=== PATIENT | male | born 1965 | race Caucasian/White ===

== ENCOUNTER 2018-04-25 12:46 | Outpatient (REF) | payer MEDICAID, SELFPAY ==
[2018-04-25 14:10] LABS: ALT 27 U/L (12-78); AST 28 U/L (15-37); Albumin 3.8 g/dL (3.4-5.0); Alkaline Phosphatase 203 U/L (46-116); Anion Gap 9.3 mmol/L (3-11); BUN 11 mg/dL (7-18); Bilirubin, Total 0.5 mg/dL (0.2-1.0); CO2 27.7 mmol/L (21.0-32.0); CREATININE 0.97 mg/dL (0.70-1.30); Calcium 8.6 mg/dL (8.5-10.1); Chloride 102 mmol/L (98-107); Glucose 128 mg/dL (70-100); Magnesium 1.7 mg/dL (1.8-2.4); Potassium 3.8 mmol/L (3.5-5.1); Sodium 139 mmol/L (136-145)
[2018-04-25 14:51] LABS: HCT 37.9 % (40.0-50.0); HGB 11.7 g/dL (13.5-17.5); Mean Corp. HGB Concentration 30.9 g/dL (32.0-36.0); Mean Corpuscular Hemoglobin 24.6 pg (27.0-33.0); Mean Corpuscular Volume 79.8 fL (80-95); Mean Platelet Volume 11.6 fL (8.0-11.0); Platelet Count 221 x1000/uL (130-400); RBC 4.75 m/cumm (4.50-6.00); RBC Distribution Width 18.2 % (11.8-14.1); White Blood Cell Count 7.07 k/cumm (4.4-10.8)
[2018-04-26 11:52] LABS: HIV-1/2 Ag & Ab Screen Negative (NEGAT)
[2018-04-26 14:54] LABS: HCV RNA Detection Quantitative Undetected IU/mL (UNDECT)
== END 2018-04-25 12:47 ==
LOC: NCHCN 12:46
PROVIDERS: PCP Nurse Practitioner Family; Visit Provider Nurse Practitioner Family
DX: K92.2 Gastrointestinal hemorrhage, unspecified (principal); B18.2 Chronic viral hepatitis C
CPT/HCPCS: 80053; 85027; 87389; 83735; 85610; 87522

== ENCOUNTER 2019-10-30 22:10 | Outpatient (REF) | payer MEDICAID, SELFPAY ==
[2019-10-30 20:17] LABS: ALT 28 U/L (16-63); AST 30 U/L (15-37); Albumin 4.2 g/dL (3.4-5.0); Alkaline Phosphatase 154 U/L (46-116); Anion Gap 10.6 mmol/L (3-11); BUN 12 mg/dL (7-18); Bilirubin, Total 0.8 mg/dL (0.2-1.0); CO2 28.4 mmol/L (21.0-32.0); CREATININE 0.86 mg/dL (0.70-1.30); Calcium 9.2 mg/dL (8.5-10.1); Calculated LDL 119 mg/dL (<100); Chloride 94 mmol/L (98-107); Cholesterol 203 mg/dL (<200); Glucose 132 mg/dL (74-106); HDL Cholesterol 76 mg/dL (40-60); Magnesium 1.9 mg/dL (1.8-2.4); Potassium 3.6 mmol/L (3.5-5.1); Sodium 133 mmol/L (136-145); Total Protein 7.7 g/dL (6.4-8.2); Triglyceride 43 mg/dL (<150)
== END 2019-10-30 22:30 ==
LOC: NCHCN 22:10
PROVIDERS: PCP Nurse Practitioner Family; Visit Provider Nurse Practitioner Family
DX: K70.30 Alcoholic cirrhosis of liver without ascites (principal); Z13.220 Encounter for screening for lipoid disorders
CPT/HCPCS: 80053; 80061; 83735

== ENCOUNTER 2020-11-18 04:18 | Outpatient (CLI) | payer MEDICAID, SELFPAY ==
[2020-11-18 13:46] LABS: Hemoglobin A1C 5.9 % (<5.7)
[2020-11-18 14:09] LABS: ALT 28 U/L (16-63); AST 23 U/L (15-37); Albumin 3.9 g/dL (3.4-5.0); Alkaline Phosphatase 145 U/L (46-116); Anion Gap 8.5 mmol/L (3-11); BUN 10 mg/dL (7-18); Bilirubin, Total 0.5 mg/dL (0.2-1.0); CO2 26.5 mmol/L (21.0-32.0); CREATININE 0.8 mg/dL (0.70-1.30); Calcium 9.1 mg/dL (8.5-10.1); Chloride 98 mmol/L (98-107); Glucose 112 mg/dL (74-106); Magnesium 1.9 mg/dL (1.8-2.4); Potassium 4.5 mmol/L (3.5-5.1); Sodium 133 mmol/L (136-145); Total Protein 7.7 g/dL (6.4-8.2)
[2020-11-22 08:46] LABS: Thiamine (Vitamin B1), WB 115 nmol/L (70-180)
== END 2020-11-18 04:19 | disposition home or self-care (01) ==
LOC: LBO 04:19
PROVIDERS: PCP Nurse Practitioner Family; Visit Provider Nurse Practitioner Family
DX: R73.03 Prediabetes (principal); F17.209 Nicotine dependence, unspecified, with unspecified nicotine-induced disorders; K70.30 Alcoholic cirrhosis of liver without ascites; E83.42 Hypomagnesemia
CPT/HCPCS: 36415; 80053; 83036; 83735; 84425

== ENCOUNTER 2020-12-26 17:43 | Outpatient (REF) | payer MEDICAID, SELFPAY ==
--- NOTE | 2020-12-26 14:30 | TONG_PTH ---
PATIENT: Vin Lopes LOC: [facility] U#:[id number] AGE/SX: 55/M ROOM: RE12/26/[address]: Collin Johnson MD : [id number] BED: DIS: 12/26/2020 SPEC #: [id number] RECD: 12/26/20 18:05 STATUS: NERIS REEunice #: [id number] ELZA: 12/26/20 14:[address]: Collin Johnson DEPT: Surgical Specimen RECD BY: Crystal Thurman ENTERED: 12/26/20 18:06 SP TYPE: MARIKA TITUS DR: Monserrat Parker Tissues: 1 - TONGUE BIOPSY Procedures: GROSS AND MICRO LEVEL 4 Comments: [id number]
== END 2020-12-26 17:44 | disposition home or self-care (01) ==
LOC: LBN 17:43
PROVIDERS: PCP Nurse Practitioner Family; Visit Provider Otolaryngology
DX: C02.1 Malignant neoplasm of border of tongue (principal); K13.29 Other disturbances of oral epithelium, including tongue; Z87.891 Personal history of nicotine dependence
CPT/HCPCS: 88305

== ENCOUNTER 2021-03-18 14:24 | Outpatient (CLI) | payer MEDICAID, SELFPAY ==
--- NOTE | 2021-03-18 14:00 | DI.RAD_ITS ---
Exam(s) XR SHOULDER RT COMPLETE 2+V EXAM: XR SHOULDER RT COMPLETE 2+V CLINICAL HISTORY: RIGHT SHOULDER PAIN. TECHNIQUE: 2D digital imaging was performed. COMPARISON: No exams were available for comparison FINDINGS: There are did mild degenerative changes of the acromioclavicular joint. The glenohumeral joint is we ll maintained. The bones are normally mineralized. No acute fracture or subluxation is seen. No beal spicious lytic or sclerotic lesions are present. The soft tissues are unremarkable. IMPRESSION: Mild degenerative changes of the AC joint. DATA REPOSITORY: RADIATION DOSE DELIVERED:
== END 2021-03-18 14:25 | disposition home or self-care (01) ==
LOC: DIORS 14:24
PROVIDERS: PCP Nurse Practitioner Family; Referring Provider Nurse Practitioner Family; Visit Provider Student in an Organized Health Care Education/Training Program
DX: M19.011 Primary osteoarthritis, right shoulder (principal)
CPT/HCPCS: 73030

== ENCOUNTER 2021-04-08 02:30 | Outpatient (CLI) | payer MEDICAID, SELFPAY ==
--- NOTE | 2021-04-08 08:45 | DI.MRI_ITS ---
Exam(s) MR UPPER JOINT RT WO EXAM: MR UPPER JOINT RT WO CLINICAL HISTORY: RT ROTATOR CUFF TEAR, PAIN, M75.101. TECHNIQUE: Multiplanar multisequence MRI was performed. COMPARISON: No exams were available for comparison FINDINGS: BONES: There is no fracture or contusion pattern. JOINTS: Mild degenerative changes are seen at the acromioclavicular joint. The glenohumeral joint is normal. TENDONS: Supraspinatus: There is a tear of the supraspinatus tendon at its insertion onto the greater tuberosi ty anteriorly. Intermediate signal seen within the supraspinatus tendon consistent with tendinosis. Infraspinatus: There is tendinosis of the infraspinatus tendon. Subscapularis: Tendinosis of the subscapularis tendon is noted. Teres Minor: Unremarkable. Biceps and [place]: Unremarkable. MUSCLES: Unremarkable. GLENOID LABRUM: Unremarkable on this noncontrast examination. SOFT TISSUES: Unremarkable. LIGAMENTS: Unremarkable. OTHER: There is fluid seen in the subacromial subdeltoid bursa. IMPRESSION: 1. Small full-thickness tear of the supraspinatus tendon. 2. Degenerative changes of the AC joint. 3. Small amount of fluid in the subacromial subdeltoid bursa. 4. Tendinosis of the subscapularis and infraspinatus tendons. DATA REPOSITORY:
== END 2021-04-08 02:50 ==
PROVIDERS: PCP Nurse Practitioner Family; Visit Provider Student in an Organized Health Care Education/Training Program
DX: M75.101 Unspecified rotator cuff tear or rupture of right shoulder, not specified as traumatic (principal); M19.011 Primary osteoarthritis, right shoulder; M67.813 Other specified disorders of tendon, right shoulder
CPT/HCPCS: 73221

== ENCOUNTER 2021-06-02 11:48 | Outpatient (CLI) | payer MEDICAID, SELFPAY ==
[2021-06-02 10:54] LABS: Abs Immature Grans 0.02 10^3/uL (0.0-0.06); Absolute Basophil Count 0.04 10^3/uL (0.0-0.2); Absolute Eosinophil Count 0.06 10^3/uL (0.0-0.7); Absolute Lymphocyte Count 2.22 10^3/uL (1.2-3.4); Absolute Monocyte Count 0.95 10^3/uL (0.1-0.8); Absolute Neutrophil Count 5.51 10^3/uL (1.2-6.7); Basophils % 0.5; Eosinophils % 0.7; HCT 40.5 % (40.0-50.0); HGB 13.1 g/dL (13.5-17.5); Immature Grans % 0.2; Lymphocytes % 25.2; MCH 28.1 pg (27.0-33.0); MCHC 32.3 % (32.0-36.0); MCV 86.7 fL (80-95); MPV 9.4 fL (8.0-11.0); Monocytes % 10.8; Neutrophils % 62.6; Nucleated RBC 0 %; Platelet Count 256 10^3/uL (130-400); RBC 4.67 10^6/uL (4.36-5.78); RDW 14.6 % (11.8-14.1); RDW-SD 46.7 fL
[2021-06-02 11:15] LABS: Magnesium 2.1 mg/dL (1.8-2.4)
[2021-06-02 11:19] LABS: ALT 28 U/L (16-63); AST 16 U/L (15-37); Albumin 3.5 g/dL (3.4-5.0); Alkaline Phosphatase 165 U/L (46-116); Anion Gap 6.6 mmol/L (3-11); BUN 11 mg/dL (7-18); Bilirubin, Total 0.4 mg/dL (0.2-1.0); CO2 29.4 mmol/L (21.0-32.0); CREATININE 0.9 mg/dL (0.70-1.30); Calcium 9.2 mg/dL (8.5-10.1); Chloride 102 mmol/L (98-107); Glucose 109 mg/dL (74-106); Potassium 4.1 mmol/L (3.5-5.1); Sodium 138 mmol/L (136-145); Total Protein 7.9 g/dL (6.4-8.2)
== END 2021-06-02 11:49 | disposition home or self-care (01) ==
LOC: LBO 11:56
PROVIDERS: PCP Nurse Practitioner Family; Visit Provider Internal Medicine Hematology & Oncology
DX: C13.9 Malignant neoplasm of hypopharynx, unspecified (principal)
CPT/HCPCS: 36415; 80053; 83735; 85025

== ENCOUNTER 2021-06-09 02:48 | Outpatient (RCR) | payer MEDICAID, SELFPAY ==
[2021-06-09] MEDS: Normal Saline Flush 10 ML SYR IVP (10:15)
[2021-06-09 10:26] LABS: Abs Immature Grans 0.02 10^3/uL (0.0-0.06); Absolute Basophil Count 0.03 10^3/uL (0.0-0.2); Absolute Eosinophil Count 0.07 10^3/uL (0.0-0.7); Absolute Lymphocyte Count 2.51 10^3/uL (1.2-3.4); Absolute Monocyte Count 0.58 10^3/uL (0.1-0.8); Absolute Neutrophil Count 5.17 10^3/uL (1.2-6.7); Basophils % 0.4; Eosinophils % 0.8; HCT 42.6 % (40.0-50.0); HGB 13.8 g/dL (13.5-17.5); Immature Grans % 0.2; MCH 28.2 pg (27.0-33.0); MCHC 32.4 % (32.0-36.0); MCV 87.1 fL (80-95); MPV 9.7 fL (8.0-11.0); Monocytes % 6.9; Neutrophils % 61.7; Nucleated RBC 0 %; Platelet Count 296 10^3/uL (130-400); RBC 4.89 10^6/uL (4.36-5.78); RDW 14.6 % (11.8-14.1); RDW-SD 46.5 fL; WBC 8.38 10^3/uL (4.4-10.8)
[2021-06-09 10:39] LABS: ALT 21 U/L (16-63); AST 20 U/L (15-37); Albumin 3.9 g/dL (3.4-5.0); Alkaline Phosphatase 172 U/L (46-116); Anion Gap 7.6 mmol/L (3-11); BUN 10 mg/dL (7-18); Bilirubin, Total 0.5 mg/dL (0.2-1.0); CO2 27.4 mmol/L (21.0-32.0); CREATININE 0.8 mg/dL (0.70-1.30); Calcium 9.1 mg/dL (8.5-10.1); Chloride 99 mmol/L (98-107); Glucose 107 mg/dL (74-106); Potassium 3.8 mmol/L (3.5-5.1); Sodium 134 mmol/L (136-145); Total Protein 8.7 g/dL (6.4-8.2)
== END 2021-06-12 23:59 | disposition home or self-care (01) ==
LOC: INF 02:48
PROVIDERS: PCP Nurse Practitioner Family; Visit Provider Internal Medicine Hematology & Oncology
DX: C13.9 Malignant neoplasm of hypopharynx, unspecified (principal)
CPT/HCPCS: 36415; 80053; 83735; 85025

== ENCOUNTER 2021-07-07 00:52 | Outpatient (RCR) | payer MEDICAID, SELFPAY ==
[2021-06-16] MEDS: Normal Saline Flush 10 ML SYR IVP (10:21)
[2021-06-16 10:47] LABS: Abs Immature Grans 0.07 10^3/uL (0.0-0.06); Absolute Eosinophil Count 0.08 10^3/uL (0.0-0.7); Absolute Lymphocyte Count 2.44 10^3/uL (1.2-3.4); Absolute Monocyte Count 0.88 10^3/uL (0.1-0.8); Absolute Neutrophil Count 7.78 10^3/uL (1.2-6.7); Basophils % 0.4; Eosinophils % 0.7; HCT 41.2 % (40.0-50.0); HGB 13.3 g/dL (13.5-17.5); Immature Grans % 0.6; Lymphocytes % 21.6; MCH 27.8 pg (27.0-33.0); MCHC 32.3 % (32.0-36.0); MCV 86.2 fL (80-95); MPV 10.1 fL (8.0-11.0); Monocytes % 7.8; Neutrophils % 68.9; Nucleated RBC 0 %; Platelet Count 300 10^3/uL (130-400); RBC 4.78 10^6/uL (4.36-5.78); RDW 14.7 % (11.8-14.1); RDW-SD 46.4 fL; WBC 11.29 10^3/uL (4.4-10.8)
[2021-06-16 10:48] LABS: Absolute Basophil Count 0.05 10^3/uL (0.0-0.2)
[2021-06-16 11:03] LABS: ALT 25 U/L (16-63); AST 27 U/L (15-37); Albumin 3.9 g/dL (3.4-5.0); Alkaline Phosphatase 166 U/L (46-116); Anion Gap 8.1 mmol/L (3-11); BUN 9 mg/dL (7-18); Bilirubin, Total 0.5 mg/dL (0.2-1.0); CO2 26.9 mmol/L (21.0-32.0); CREATININE 0.9 mg/dL (0.70-1.30); Calcium 9.3 mg/dL (8.5-10.1); Chloride 97 mmol/L (98-107); Glucose 93 mg/dL (74-106); Magnesium 1.9 mg/dL (1.8-2.4); Potassium 3.9 mmol/L (3.5-5.1); Sodium 132 mmol/L (136-145); Total Protein 8.3 g/dL (6.4-8.2)
[2021-06-23] MEDS: Normal Saline Flush 10 ML SYR IVP (10:14)
[2021-06-23 10:24] LABS: Abs Immature Grans 0.04 10^3/uL (0.0-0.06); Absolute Basophil Count 0.02 10^3/uL (0.0-0.2); Absolute Eosinophil Count 0.02 10^3/uL (0.0-0.7); Absolute Lymphocyte Count 1.38 10^3/uL (1.2-3.4); Absolute Monocyte Count 0.51 10^3/uL (0.1-0.8); Absolute Neutrophil Count 5.98 10^3/uL (1.2-6.7); Basophils % 0.3; Eosinophils % 0.3; HCT 36.4 % (40.0-50.0); HGB 11.8 g/dL (13.5-17.5); Immature Grans % 0.5; Lymphocytes % 17.4; MCH 28.3 pg (27.0-33.0); MCHC 32.4 % (32.0-36.0); MCV 87.3 fL (80-95); MPV 10.1 fL (8.0-11.0); Monocytes % 6.4; Neutrophils % 75.1; Nucleated RBC 0 %; Platelet Count 182 10^3/uL (130-400); RBC 4.17 10^6/uL (4.36-5.78); RDW 15.3 % (11.8-14.1); RDW-SD 47.9 fL; WBC 7.95 10^3/uL (4.4-10.8)
[2021-06-23 10:32] LABS: ALT 25 U/L (16-63); AST 22 U/L (15-37); Albumin 3.8 g/dL (3.4-5.0); Alkaline Phosphatase 146 U/L (46-116); Anion Gap 10.5 mmol/L (3-11); BUN 10 mg/dL (7-18); Bilirubin, Total 0.7 mg/dL (0.2-1.0); CO2 25.5 mmol/L (21.0-32.0); CREATININE 0.8 mg/dL (0.70-1.30); Calcium 8.9 mg/dL (8.5-10.1); Chloride 97 mmol/L (98-107); Glucose 83 mg/dL (74-106); Magnesium 1.9 mg/dL (1.8-2.4); Potassium 3.5 mmol/L (3.5-5.1); Sodium 133 mmol/L (136-145); Total Protein 7.8 g/dL (6.4-8.2)
[2021-06-30] MEDS: Normal Saline Flush 10 ML SYR IVP (10:07)
[2021-06-30 10:23] LABS: Abs Immature Grans 0.03 10^3/uL (0.0-0.06); Absolute Basophil Count 0.02 10^3/uL (0.0-0.2); Absolute Eosinophil Count 0.03 10^3/uL (0.0-0.7); Absolute Lymphocyte Count 1.39 10^3/uL (1.2-3.4); Absolute Monocyte Count 0.57 10^3/uL (0.1-0.8); Absolute Neutrophil Count 4.58 10^3/uL (1.2-6.7); Basophils % 0.3; Eosinophils % 0.5; HCT 36.9 % (40.0-50.0); HGB 12.3 g/dL (13.5-17.5); Immature Grans % 0.5; MCH 28.5 pg (27.0-33.0); MCHC 33.3 % (32.0-36.0); MCV 85.6 fL (80-95); MPV 9.6 fL (8.0-11.0); Monocytes % 8.6; Neutrophils % 69.1; Nucleated RBC 0 %; Platelet Count 202 10^3/uL (130-400); RBC 4.31 10^6/uL (4.36-5.78); RDW 15.7 % (11.8-14.1); RDW-SD 48.1 fL; WBC 6.62 10^3/uL (4.4-10.8)
[2021-06-30 10:39] LABS: ALT 22 U/L (16-63); AST 26 U/L (15-37); Albumin 3.7 g/dL (3.4-5.0); Alkaline Phosphatase 163 U/L (46-116); Anion Gap 10.6 mmol/L (3-11); BUN 9 mg/dL (7-18); Bilirubin, Total 0.4 mg/dL (0.2-1.0); CO2 26.4 mmol/L (21.0-32.0); CREATININE 0.8 mg/dL (0.70-1.30); Calcium 9.2 mg/dL (8.5-10.1); Chloride 96 mmol/L (98-107); Glucose 94 mg/dL (74-106); Magnesium 1.7 mg/dL (1.8-2.4); Sodium 133 mmol/L (136-145); Total Protein 8.3 g/dL (6.4-8.2)
[2021-07-07 09:49] LABS: Abs Immature Grans 0.03 10^3/uL (0.0-0.06); Absolute Basophil Count 0.02 10^3/uL (0.0-0.2); Absolute Eosinophil Count 0.06 10^3/uL (0.0-0.7); Absolute Lymphocyte Count 0.83 10^3/uL (1.2-3.4); Absolute Neutrophil Count 5.99 10^3/uL (1.2-6.7); Basophils % 0.3; Eosinophils % 0.8; HCT 36.7 % (40.0-50.0); Immature Grans % 0.4; Lymphocytes % 10.9; MCH 28.7 pg (27.0-33.0); MCHC 32.7 % (32.0-36.0); MCV 87.8 fL (80-95); MPV 10.1 fL (8.0-11.0); Monocytes % 9.2; Neutrophils % 78.4; Nucleated RBC 0 %; Platelet Count 190 10^3/uL (130-400); RBC 4.18 10^6/uL (4.36-5.78); RDW 17.3 % (11.8-14.1); RDW-SD 53.5 fL; WBC 7.63 10^3/uL (4.4-10.8)
[2021-07-07 10:11] LABS: ALT 24 U/L (16-63); AST 18 U/L (15-37); Albumin 3.7 g/dL (3.4-5.0); Alkaline Phosphatase 160 U/L (46-116); Anion Gap 7.3 mmol/L (3-11); BUN 10 mg/dL (7-18); Bilirubin, Total 0.4 mg/dL (0.2-1.0); CO2 29.7 mmol/L (21.0-32.0); CREATININE 0.8 mg/dL (0.70-1.30); Chloride 100 mmol/L (98-107); Glucose 81 mg/dL (74-106); Magnesium 1.9 mg/dL (1.8-2.4); Potassium 3.9 mmol/L (3.5-5.1); Sodium 137 mmol/L (136-145); Total Protein 7.9 g/dL (6.4-8.2)
== END 2021-07-13 23:59 | disposition home or self-care (01) ==
LOC: INF 00:52
PROVIDERS: PCP Nurse Practitioner Family; Visit Provider Internal Medicine Hematology & Oncology
DX: C13.9 Malignant neoplasm of hypopharynx, unspecified (principal)
CPT/HCPCS: 36415; 80053; 99195; 83735; 85025

== ENCOUNTER 2021-07-21 09:35 | Outpatient (RCR) | payer MEDICAID, SELFPAY ==
[2021-07-14 10:27] LABS: Abs Immature Grans 0.02 10^3/uL (0.0-0.06); Absolute Basophil Count 0.02 10^3/uL (0.0-0.2); Absolute Eosinophil Count 0.02 10^3/uL (0.0-0.7); Absolute Lymphocyte Count 0.62 10^3/uL (1.2-3.4); Absolute Monocyte Count 0.54 10^3/uL (0.1-0.8); Absolute Neutrophil Count 3.79 10^3/uL (1.2-6.7); Basophils % 0.4; Eosinophils % 0.4; HCT 37.6 % (40.0-50.0); HGB 12.4 g/dL (13.5-17.5); Immature Grans % 0.4; Lymphocytes % 12.4; MCV 88.1 fL (80-95); MPV 9.7 fL (8.0-11.0); Monocytes % 10.8; Neutrophils % 75.6; Nucleated RBC 0 %; Platelet Count 171 10^3/uL (130-400); RBC 4.27 10^6/uL (4.36-5.78); RDW 17.7 % (11.8-14.1); RDW-SD 55.4 fL; WBC 5.01 10^3/uL (4.4-10.8)
[2021-07-14 10:39] LABS: ALT 21 U/L (16-63); AST 14 U/L (15-37); Albumin 3.6 g/dL (3.4-5.0); Alkaline Phosphatase 163 U/L (46-116); Anion Gap 8.6 mmol/L (3-11); BUN 12 mg/dL (7-18); Bilirubin, Total 0.4 mg/dL (0.2-1.0); CO2 29.4 mmol/L (21.0-32.0); CREATININE 0.8 mg/dL (0.70-1.30); Calcium 9.3 mg/dL (8.5-10.1); Chloride 97 mmol/L (98-107); Glucose 90 mg/dL (74-106); Magnesium 1.6 mg/dL (1.8-2.4); Potassium 4.3 mmol/L (3.5-5.1); Sodium 135 mmol/L (136-145); Total Protein 8.1 g/dL (6.4-8.2)
[2021-07-21 09:48] LABS: Abs Immature Grans 0.03 10^3/uL (0.0-0.06); Absolute Basophil Count 0.01 10^3/uL (0.0-0.2); Absolute Eosinophil Count 0.01 10^3/uL (0.0-0.7); Absolute Lymphocyte Count 0.68 10^3/uL (1.2-3.4); Absolute Monocyte Count 0.51 10^3/uL (0.1-0.8); Absolute Neutrophil Count 3.66 10^3/uL (1.2-6.7); Basophils % 0.2; Eosinophils % 0.2; HCT 35.3 % (40.0-50.0); HGB 11.8 g/dL (13.5-17.5); Immature Grans % 0.6; Lymphocytes % 13.9; MCH 29.6 pg (27.0-33.0); MCHC 33.4 % (32.0-36.0); MCV 88.5 fL (80-95); MPV 9.5 fL (8.0-11.0); Monocytes % 10.4; Neutrophils % 74.7; Nucleated RBC 0 %; Platelet Count 197 10^3/uL (130-400); RBC 3.99 10^6/uL (4.36-5.78); RDW 18.1 % (11.8-14.1); RDW-SD 57.5 fL
[2021-07-21 10:02] LABS: ALT 23 U/L (16-63); AST 17 U/L (15-37); Albumin 3.6 g/dL (3.4-5.0); Alkaline Phosphatase 162 U/L (46-116); Anion Gap 11.2 mmol/L (3-11); BUN 10 mg/dL (7-18); Bilirubin, Total 0.6 mg/dL (0.2-1.0); CO2 26.8 mmol/L (21.0-32.0); CREATININE 0.9 mg/dL (0.70-1.30); Calcium 9.4 mg/dL (8.5-10.1); Chloride 95 mmol/L (98-107); Glucose 95 mg/dL (74-106); Magnesium 1.5 mg/dL (1.8-2.4); Potassium 3.7 mmol/L (3.5-5.1); Sodium 133 mmol/L (136-145); Total Protein 7.8 g/dL (6.4-8.2)
== END 2021-08-12 23:59 | disposition home or self-care (01) ==
LOC: INF 09:35
PROVIDERS: PCP Nurse Practitioner Family; Visit Provider Internal Medicine Hematology & Oncology
DX: C13.9 Malignant neoplasm of hypopharynx, unspecified (principal)
CPT/HCPCS: 36415; 80053; 83735; 85025

== ENCOUNTER 2021-11-17 04:04 | Outpatient (CLI) | payer MEDICAID, SELFPAY ==
[2021-11-17 13:07] LABS: Source Nasal/Nares
[2021-11-17 21:53] LABS: COVID-19 PCR Negative (Negative)
== END 2021-11-17 04:05 | disposition home or self-care (01) ==
LOC: LBO 04:05
PROVIDERS: PCP Nurse Practitioner Family; Visit Provider Family Medicine
DX: Z20.822 Contact with and (suspected) exposure to COVID-19 (principal); Z01.818 Encounter for other preprocedural examination
CPT/HCPCS: 87635

== ENCOUNTER 2021-11-19 01:13 | Outpatient (CLI) | payer MEDICAID, SELFPAY ==
--- NOTE | 2021-11-19 12:46 | ST.MBS_ITS ---
Date of Service Date of service: 11/19/21 Time of Service: 14:30 Modified Barium Swallow Study Findings: Videofluoroscopic Swallowing Evaluation (VFSE) / Modified Barium Swallow Study (MBSS) Speech Language Pathology Report HPI: Patient is a 56 year old male referred for VFSE/MBSS from Dr. Watt given recently discovered L VF paralysis, identification of material in trachea, and suspicions of silent aspiration given recent episode of pneumonia. 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 IMPRESSIONS: Swallow safety is impaired; swallow efficiency is impaired. Patient demonstrates moderate-severe chronic oropharyngeal dysphagia, characterized by physiologic deficits as outlined below, and resulting in overt silent aspiration both during swallow onset of current bolus and after swallow onset from pyrifrom sinus residue with most consistencies (liquids>solids) outside of recommended compensatory strategy use; compensatory strategies as outlined are successful in reducing likelihood of yakov aspiration; dysphagia presentation likely due to late effects of [employer], anatomical changes s/p related surgical procedure(s), recent identification of L VF paralysis. Patient appears to be at moderate-high risk for potential aspiration PNA and/or pulmonary compromise and moderate risk for malnutrition, low-moderate risk for dehydration. Diet modification is not indicated; non-oral nutrition is not indicated. Swallow prognosis is fair-guarded given patient complicated medical history involving both late effects of RT, anatomical changes at baseline; positive prognostic factors include age and patient motivation to participate in risk management training as outlined, including use of trialed compensatory strategies. Patient appears to be a good candidate for behavioral swallow rehabilitation. Specialist referrals: N/A Ancillary tests: N/A Diet texture recommendation: IDDSI Level 7-Regular/Easy to Chew Solids / 0-Thin Liquids Medications whole with sip of liquid or as tolerated Please see further details at [email or web address] Diet texture modification is per patient's preference; please adjust diet textures at patient's discretion & collaboration with care team. Risk Management: HEAD TURN LEFT FOR ALL SWALLOWS - Follow with TC+Re-Swallow - Continue with TC + successive swallow until globus sensation resolves and prior to introducing additional bolus Small bites Small sips Avoid straws Control risk factors for aspiration pneumonia via (a) thorough oral hygiene & (b) maintaining physical mobility as tolerated PLAN: Therapy: Recommend subsequent outpatient session with GASOLINE TESTER to review results of today's exam and develop treatment plan as appropriate. May consider the following: - Training in outlined compensatory strategies - RMST - Continued encouragement re: thorough, consistent oral care Goal: TBD pending patient/caregiver interview Follow-up exam: N/A Thank you for allowing me to take part in this patient's care. Please feel free to contact me with any questions/concerns. Nae Ray MA [facility]-GASOLINE TESTER Speech Language Pathologist [phone] OBJECTIVE: Videofluoroscopic Swallow Evaluation (VFSE/MBSS) was conducted in the lateral and [id number] projections by Speech-Language Pathologist, in collaboration with Radiologist, to evaluate oropharyngeal swallow function. Anatomic view under fluoroscopy: WFL PO Barium Contrast Trials Oral barium water-soluble contrast was administered as follows: IDDSI Level 0 Varibar thin liquid (40% w/v) IDDSI Level 2 Varibar nectar thick/mildly thick liquid (40% w/v) IDDSI Level 3 Varibar thin honey/liquidised/moderately-thick (40% w/v) IDDSI Level 4 Varibar pudding/pureed/extremely thick (40% w/v) IDDSI Level 7 Regular Solid: 1/2 maria t cracker coated in 3 mL Varibar pudding; 13 mm barium tablet (A) Pictured Above: Yakov (silent) aspiration from pyriform sinus residue; absent epiglottic inversion (B) Pictured Above: Level 7 solid bolus: Yakov (silent) aspiration during swallow onset from previous thin liquid pyriform sinus residue; delayed epiglottic inversion PHYSIOLOGIC FINDINGS (1) Oral Impairment 1 Lip Closure [0-No labial escape] 2 Tongue Control [1- Escape to lateral buccal cavity/floor of mouth ] 3 Bolus Preparation/Mastication [1- Slowed/prolonged chewing/mashing with complete recollection] 4 Bolus Transport/Lingual Motion [0- Brisk tongue motion] 5 Oral residue [1- Trace residue lining oral structures] Location tongue 6 Initiation of pharyngeal swallow [2- Bolus head at posterior laryngeal surface of epiglottis] Pharyngeal Impairment 7 Velar Elevation [0- No bolus between soft palate and pharyngeal wall ] 8 Laryngeal Elevation [2- Minimal superior movement of thyroid cartilage with minimal approximation of arytenoids to epiglottic petiole] 9 Anterior Hyoid Excursion [1- Partial anterior movement] 10 Epiglottic Movement [2- Absent/No inversion] 11 Laryngeal Vestibule Closure [2- None; wide column of air/contrast in laryngeal vestibule] Penetration occurs during, after initial swallow onset from current bolus Silent Aspiration occurs during initial swallow onset from current bolus as well as after swallow onset from pharyngeal (PS) stasis See Pictures A,B *during swallow onset from pyriform sinus residue *during swallow onset from previous thin liquid pyriform sinus residue PAS / Overall 8-Point Penetration-Aspiration Scale (2) 8 - Material enters the airway passes below the vocal folds and no effort is made to eject Clinical Indicator(s) of Prandial/Postprandial Aspiration Wet vocal quality 12 Pharyngeal Stripping Wave [1- Present; diminished] 13 Pharyngeal Contraction [DNT; lack of full AP view] 14 PES/UES Opening [2- Minimal distension and minimal duration; marked obstruction of flow] 15 Tongue Base Retraction [3- Wide column of contrast between tongue base and posterior pharyngeal wall ] 16 Pharyngeal residue [3- Majority of residue within or on pharyngeal structures ] Location [place] Pharyngeal Residue Severity Rating Scale(3) [Diffuse; >3 areas] [Tongue base] [Valleculae] V Severe >50% Filled to epiglottic rim [Pharyngeal wall] [Pyriform sinuses] IV Moderate 25-50% Up wall to half full [Aryepiglottic folds] Esophageal Impairment 17 Esophageal Clearance in Upright Position [0-Complete clearance; esophageal coating ] Notes This study was performed for interpretation only of the oropharyngeal and pharyngoeso phageal domains of swallowing, and is not intended to diagnose any other radiologic abnormalities or substitute for a formal esophagram study. DIGEST Scale Rating (4) Interaction of Assigned Safety and Efficiency Grades (0=No Impairment, 1=Mild, 2=Moderate, 3=Severe, 4=Life Threatening) Safety Grade S0 S1 S2 S3 S4 Efficiency Grade E0 0 1 2 3 3 E1 1 1c 2 3 3 E2 1 2 2 3 3 E3 2 2 3 3 4 E4 3 3 3 4 4 Overall Severe Pharyngeal Impairment - Above score(s) represent swallowing events without application of compensatory techniques - Breaking of MBSimP protocol for current study likely [under, over]-grades above safety impairment LEIGHTON: (5) Severity LEVEL 2 - Nonoral nutrition necessary - Moderate-severe dysphagia; Maximum assistance or use of strategies with partial PO / tolerates at least 1 consistency safely with total use of strategies Trialed Compensatory Strategies & Outcome: Maneuvers Successful/Unsuccessful (+/-) Postures Successful/Unsuccessful (+/-) 3 second Preparatory Set N/A Chin Tuck Posture Cough Posterior Head tilt Reflexive None Cued + Throat Clear Head Tilt to Reflexive None Left Cued + Right Saliva swallow x1 + Head Turn/Rotation to Supraglottic Swallow + Left + Super-supraglottic Swallow Right Bolus Modifications Successful/Unsuccessful (+/-) Delivery/Alternating Consistencies - (increased risk of aspiration) Delivery/Via Straw - (increased risk of aspiration) Reduced Volume + Reduced Rate of Intake Increased Viscosity Other: Coding CPT Codes MOTION FLUOROSCOPY/SWALLOW - [id number] ([id number]) 1: Tete Traylor et al. ?MBS measurement tool for swallow impairment--MBSImp: establishing a standard.? Dysphagia vol. 23,4 (2008): 392-405. doi:10.1007/b76574-006-1942-3 2: (Marisol, et al, 1996) 3: (Cecille, et al, 2015) 4: (OMarlen, et al, 1999, Maurilio, et al. Cancer. 2017;123(1):62-70) The Dynamic Imaging Grade of Swallowing Toxicity (DIGEST) Score represents a set of structured criteria primarily validated for head and neck cancer patients to grade the interaction of safety, efficiency, and overall impairment of the pharyngeal swallow, meant to assist in prioritization of targets for dysphagia treatment planning. 5: The Dysphagia Outcome and Severity Scale is a 7-point scale developed to systematically rate the functional severity of dysphagia based on objective assessment and make recommendations for diet level, independence level, and type of nutrition.
--- NOTE | 2021-11-19 14:30 | DI.RAD_ITS ---
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 COMPARISON: No exams were available for comparison FINDINGS: Fluoroscopy was utilized to assist in modified barium swallow performed by the speech pathologist. Evan hess see the speech pathologist's report. IMPRESSION: RADIATION DOSE DELIVERED: kierra Negro=7.77 mGy Total DLP
[2021-11-19] MEDS: Barium Sulfate 40% W/V 1500 CPS 250 ML BTL PO (15:10)
[2021-11-19] MEDS: Barium Sulfate Oral Paste 40% W/V 230 ML TUBE PO (15:11)
[2021-11-19] MEDS: Barium Sulfate 81% w/w for Oral Suspension 148 GM BTL PO (15:11)
[2021-11-19] MEDS: Barium Sulfate 40% W/V 240 ML BTL PO (15:11)
== END 2021-11-19 01:33 ==
PROVIDERS: PCP Nurse Practitioner Family; Visit Provider Speech-Language Pathologist
DX: C13.9 Malignant neoplasm of hypopharynx, unspecified (principal); C06.9 Malignant neoplasm of mouth, unspecified; J69.0 Pneumonitis due to inhalation of food and vomit
CPT/HCPCS: 92526; 92611; 74221

== ENCOUNTER → 2022-01-16 01:33 | Outpatient (CLI) | payer MEDICAID, SELFPAY ==
--- NOTE | 2022-01-16 | DI.CT_ITS ---
Exam(s) CT CHEST WO EXAM: CT CHEST WO CLINICAL HISTORY: CA OF HYPOPHARYNX,ORAL CA,ASPIRATION PNEUMONITIS,J69.0,C06.9,C13.9. TECHNIQUE: Multi planar reconstructions were performed. CONTRAST MATERIAL: None FINDINGS: CHEST: LUNGS: There is persistent infiltrate in both lower lobes as well as in the right middle lobe. The r ight middle lobe infiltrate exhibits minimal change. Right lower lobe infiltrate also exhibits minim al if any significant change. The left lower lobe infiltrate is confined to the basal segments but a ppears slightly more confluent. There is sparing of the lingular segment. Anterior basal segment of the left lower lobe now exhibits some infiltrate. There are no pleural effusions on either side. M ucus is noted in the trachea and right mainstem bronchus. Again noted is a calcified granuloma in th e left lung base posterior basal segment left lower lobe. MEDIASTINUM: There is a slightly prominent lymph node in the right hilum. Calcified lymph node in th e left hilum noted, previously present. Slightly increased lymph nodes in the subcarinal region are again noted. There is lower left thyroid lobe noted. This appears to contain nodule.No obvious axil zain adenopathy CARDIAC: Heart size is normal. There is no pericardial effusion.Caliber of the thoracic aorta is wit hin normal limits. VISUALIZED UPPER ABDOMEN:Cholelithiasis noted. Layering milk of calcium in the non edematous gallbla dder lumen. No distinct renal masses. No adrenal masses. Calcified splenic granulomas noted. OSSEOUS: No significant osseous lesions.. IMPRESSION: 1. Compared to the prior outside CT scan of 10/23/2021 there are again noted bilateral pulmonary infi ltrates in both lower lobes as well as in the right middle lobe, exhibiting minimal change although t he left lower lobe infiltrate appears somewhat more confluent. 2. No pleural effusions and a few slightly prominent intrathoracic lymph nodes are unchanged. 3. Cholelithiasis noted.. RADIATION DOSE DELIVERED: 445.85mGy.cm Total DLP DATA REPOSITORY: All CT scans at this facility are submitted to the National Radiology Data Registry (NRDR) Dose Index Registry (DIR) with the [employer] ([employer]). RADIATION OPTIMIZATION: All CT scans at this facility use at least one of these dose optimization te chniques: automated exposure control; mA and/or kV adjustment per patient size (includes targeted exa ms where dose is matched to clinical indication); or iterative reconstruction.
== END ==
PROVIDERS: PCP Nurse Practitioner Family; Visit Provider Internal Medicine Hematology & Oncology
DX: C06.9 Malignant neoplasm of mouth, unspecified (principal); C13.9 Malignant neoplasm of hypopharynx, unspecified; J69.0 Pneumonitis due to inhalation of food and vomit; J84.10 Pulmonary fibrosis, unspecified; R59.0 Localized enlarged lymph nodes; K80.20 Calculus of gallbladder without cholecystitis without obstruction; E04.1 Nontoxic single thyroid nodule
CPT/HCPCS: 71250

== ENCOUNTER 2022-01-21 10:07 | Outpatient (CLI) | payer MEDICAID, SELFPAY ==
[2022-01-21 13:28] LABS: TSH 6.81 uIU/mL (0.36-3.74)
== END 2022-01-21 10:08 | disposition home or self-care (01) ==
PROVIDERS: PCP Nurse Practitioner Family; Visit Provider Internal Medicine Hematology & Oncology
DX: C13.9 Malignant neoplasm of hypopharynx, unspecified (principal); E03.9 Hypothyroidism, unspecified
CPT/HCPCS: 36415; 84443

== ENCOUNTER 2022-04-17 14:41 | Outpatient (CLI) | payer MEDICAID, SELFPAY ==
[2022-04-17 13:44] LABS: Abs Immature Grans 0.02 10^3/uL (0.0-0.06); Absolute Basophil Count 0.01 10^3/uL (0.0-0.2); Absolute Eosinophil Count 0.06 10^3/uL (0.0-0.7); Absolute Lymphocyte Count 1.22 10^3/uL (1.2-3.4); Absolute Monocyte Count 0.34 10^3/uL (0.1-0.8); Absolute Neutrophil Count 4.96 10^3/uL (1.2-6.7); Basophils % 0.2; Eosinophils % 0.9; HCT 40.8 % (40.0-50.0); HGB 13.4 g/dL (13.5-17.5); Immature Grans % 0.3; Lymphocytes % 18.5; MCH 28.5 pg (27.0-33.0); MCHC 32.8 % (32.0-36.0); MCV 87 fL (80-95); MPV 9.6 fL (8.0-11.0); Monocytes % 5.1; Platelet Count 206 10^3/uL (130-400); RBC 4.71 10^6/uL (4.36-5.78); RDW-SD 44.6 fL; WBC 6.61 10^3/uL (4.4-10.8)
[2022-04-17 14:04] LABS: ALT 28 U/L (16-63); AST 29 U/L (15-37); Albumin 3.6 g/dL (3.4-5.0); Alkaline Phosphatase 137 U/L (46-116); Anion Gap 6.2 mmol/L (3-11); BUN 12 mg/dL (7-18); Bilirubin, Total 0.6 mg/dL (0.2-1.0); CO2 27.8 mmol/L (21.0-32.0); CREATININE 0.8 mg/dL (0.70-1.30); Calcium 8.9 mg/dL (8.5-10.1); Chloride 98 mmol/L (98-107); Glucose 96 mg/dL (74-106); Potassium 3.7 mmol/L (3.5-5.1); Sodium 132 mmol/L (136-145); Total Protein 8.2 g/dL (6.4-8.2)
[2022-04-17 16:12] LABS: TSH 7.49 uIU/mL (0.36-3.74)
== END 2022-04-17 14:42 | disposition home or self-care (01) ==
LOC: LBO 14:44
PROVIDERS: PCP Nurse Practitioner Family; Visit Provider Internal Medicine Hematology & Oncology
DX: C13.9 Malignant neoplasm of hypopharynx, unspecified (principal)
CPT/HCPCS: 36415; 80053; 84443; 85025

== ENCOUNTER 2022-10-09 16:43 | Outpatient (REF) | payer MEDICAID, SELFPAY ==
[2022-10-09 16:26] LABS: HCT 36.9 % (40.0-50.0); HGB 12.4 g/dL (13.5-17.5); MCH 28.4 pg (27.0-33.0); MCHC 33.6 % (32.0-36.0); MCV 85 fL (80-95); MPV 10.3 fL (8.0-11.0); Platelet Count 200 10^3/uL (130-400); RBC 4.36 10^6/uL (4.36-5.78); RDW 14.8 % (11.8-14.1); RDW-SD 46.5 fL; WBC 5.87 10^3/uL (4.4-10.8)
[2022-10-09 16:52] LABS: ALT 21 U/L (16-63); AST 25 U/L (15-37); Albumin 3.7 g/dL (3.4-5.0); Alkaline Phosphatase 140 U/L (46-116); Anion Gap 7.9 mmol/L (3-11); BUN 10 mg/dL (7-18); Bilirubin, Total 0.5 mg/dL (0.2-1.0); CO2 27.1 mmol/L (21.0-32.0); Chloride 97 mmol/L (98-107); Glucose 92 mg/dL (74-106); Potassium 3.8 mmol/L (3.5-5.1); Sodium 132 mmol/L (136-145); TSH (W/Ref FT4) 5.78 uIU/mL (0.36-3.74); Total Protein 7.6 g/dL (6.4-8.2)
[2022-10-09 17:17] LABS: FREE T4 1.24 ng/dL (0.76-1.46)
== END 2022-10-09 16:44 | disposition home or self-care (01) ==
LOC: NCHCN 16:43
PROVIDERS: PCP Nurse Practitioner Family; Visit Provider Nurse Practitioner Family
DX: E03.9 Hypothyroidism, unspecified (principal); R63.4 Abnormal weight loss; Z01.818 Encounter for other preprocedural examination
CPT/HCPCS: 80053; 85027; 84439; 84443

== ENCOUNTER 2023-01-25 03:04 | Outpatient (CLI) | payer MEDICAID, SELFPAY ==
[2023-01-25 10:11] LABS: TSH 8.56 uIU/mL (0.36-3.74)
== END 2023-01-25 03:05 | disposition home or self-care (01) ==
LOC: LBO 03:04
PROVIDERS: PCP Nurse Practitioner Family; Visit Provider Internal Medicine Hematology & Oncology
DX: E03.9 Hypothyroidism, unspecified (principal)
CPT/HCPCS: 36415; 84443

== ENCOUNTER 2023-03-26 02:15 | Outpatient (CLI) | payer MEDICAID, SELFPAY ==
[2023-03-26 10:51] LABS: TSH 5.66 uIU/mL (0.36-3.74)
== END 2023-03-26 02:16 | disposition home or self-care (01) ==
LOC: LBO 02:15
PROVIDERS: PCP Nurse Practitioner Family; Visit Provider Internal Medicine Hematology & Oncology
DX: E03.9 Hypothyroidism, unspecified (principal)
CPT/HCPCS: 36415; 84443

== ENCOUNTER → 2023-05-19 02:38 | Outpatient (CLI) | payer MEDICAID, SELFPAY ==
--- NOTE | 2023-05-19 | DI.CT_ITS ---
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 TECHNIQUE: Imaging Protocol: Axial computed tomography images with coronal and sagittal reformatted images were created and reviewed. CONTRAST MATERIAL: Intravenous: Omnipaque 350 Contrast volume:100mL FINDINGS: Orbits and orbital soft tissues: Within normal limits. Visualized paranasal sinuses: Within normal limits. Nasopharynx: Within normal limits. Oropharynx: Within normal limits. Hypopharynx: Postsurgical changes are seen in the hypopharynx and larynx. Larynx: There is a large calcification in the region of the left vocal cords. This may be related t o prior surgery. Please correlate clinically. Retropharyngeal space: Within normal limits. Parotids/submandibular: The submandibular glands are not visualized. The parotid glands are grossly unremarkable. Thyroid gland: There is a 1.2 x 0.8 cm partially calcified mass in the left lobe of the thyroid glan d. Nonemergent thyroid ultrasound is recommended for further evaluation. Lymphadenopathy: There is scattered lymph nodes seen along the level one to level three all measurin g less than 8 mm in short axis diameter which are physiologic in nature. Trachea: Within normal limits. Lung apices: Mild centrilobular emphysematous changes are seen in the lungs. The spiculation/scarri ng in the right lung apex is stable. The lungs are otherwise clear Bones: Within normal limits for the patient's age. Carotids/Jugular: Within normal limits. Soft tissues: The patient appears to have had a prior left neck dissection. IMPRESSION: 1. Postsurgical changes in the neck without evidence of a definite mass. 2. Calcification associated with the left vocal cord. This may be postsurgical. Please correlate cl inically. Calcified mass cannot be excluded. 3. No evidence of cervical adenopathy. 4. Stable changes in the lung apices. 5. Left thyroid nodule. Nonemergent thyroid ultrasound recommended for further evaluation. RADIATION DOSE DELIVERED: 433.86mGy.cm Total DLP 433.86mGy.cm Total DLP DATA REPOSITORY: All CT scans at this facility are submitted to the National Radiology Data Registry (NRDR) Dose Index Registry (DIR) with the [employer] (ACR). RADIATION OPTIMIZATION: All CT scans at this facility use at least one of these dose optimization te chniques: automated exposure control; mA and/or kV adjustment per patient size (includes targeted exa ms where dose is matched to clinical indication); or iterative reconstruction.
[2023-05-19 14:42] LABS: CREATININE 1.1 mg/dL (0.70-1.30); Estimated GFR 76.85 (mL/min/1.73m2)
[2023-05-19] MEDS: Normal Saline - Diluent 50 ML VIAL IJ (15:03)
[2023-05-19] MEDS: Omnipaque 350 MG/ML 100 ML BTL IJ (15:04)
[2023-05-19] MEDS: Normal Saline Flush 10 ML SYR IVP (15:08)
== END ==
PROVIDERS: PCP Nurse Practitioner Family; Visit Provider Physician Assistant
DX: Z98.890 Other specified postprocedural states (principal); J38.3 Other diseases of vocal cords; R91.8 Other nonspecific abnormal finding of lung field; E07.9 Disorder of thyroid, unspecified
CPT/HCPCS: 70491; 82565; J3490

== ENCOUNTER 2023-08-20 15:42 | Outpatient (REF) | payer MEDICAID, SELFPAY ==
[2023-08-20 20:12] LABS: ALT 13 U/L (16-63); AST 17 U/L (15-37); Albumin 3.3 g/dL (3.4-5.0); Alkaline Phosphatase 157 U/L (46-116); Anion Gap 11.2 mmol/L (3-11); BUN 16 mg/dL (7-18); Bilirubin, Total 0.5 mg/dL (0.2-1.0); CO2 25.8 mmol/L (21.0-32.0); Calcium 9.4 mg/dL (8.5-10.1); Chloride 101 mmol/L (98-107); Estimated GFR 86.16 (mL/min/1.73m2); Glucose 98 mg/dL (74-106); Potassium 4.3 mmol/L (3.5-5.1); Sodium 138 mmol/L (136-145); TSH 3.83 uIU/mL (0.36-3.74); Total Protein 7.6 g/dL (6.4-8.2)
[2023-08-20 20:14] LABS: Hemoglobin A1C 5.6 % (<5.7)
== END 2023-08-20 15:43 | disposition home or self-care (01) ==
LOC: NCHCN 15:42
PROVIDERS: PCP Nurse Practitioner Family; Visit Provider Physician Assistant
DX: E03.9 Hypothyroidism, unspecified (principal); R73.03 Prediabetes; F10.10 Alcohol abuse, uncomplicated; E83.42 Hypomagnesemia
CPT/HCPCS: 80053; 83036; 83735; 84443

== ENCOUNTER 2023-11-07 11:52 | Inpatient (IN) | payer MEDICAID, SELFPAY ==
[2023-11-07] VITALS (8 sets, daily range): BP systolic 116–135; BP diastolic 77–80; PULSE 74–92; RESP 5–18; TEMP 36–37.3; O2SAT 95–99
--- NOTE | 2023-11-07 11:45 | DI.RAD_ITS ---
Exam(s) XR PORTABLE CHEST AP EXAM: XR PORTABLE CHEST AP CLINICAL HISTORY: COUGH. TECHNIQUE: 2D digital imaging was performed. COMPARISON: CT CT CHEST WO from 01/16/2022 FINDINGS: Single AP portable view. Heart size is upper normal. The mediastinum is not widened. Hyperinflation again noted. Bilateral lung base fibrotic changes are noted, predominately in the lef t lower lobe and what appears to be the right middle lobe and lower lobe. No pleural effusions. Sub tle nodular density also noted in the right lung base, difficult to determine intraparenchymal versus is breast nipple. There are no pleural effusions. IMPRESSION: Abnormal lung base findings as described above with an element of chronicity-probable fibrotic lung d isease both lung bases. However, there is also a 1 cm nodular density in the lower right lungwhich m ay be a pulmonary nodule or breast nipple. Consider CT scan for comparison to the most recent prior CT scan of January 2022. DATA REPOSITORY: RADIATION DOSE DELIVERED:
--- NOTE | 2023-11-07 11:45 | RT.EKG_ITS ---
APPROVED REPORT Exam: Resting ECG Reason for Exam: COUGH Patient Location: E HR:82 bpm ECG Measurements Heart Rate 82 AXIS ME 121 P 69 QRSd 76 QRS 77 QT 352 T 76 QTc 411 Conclusion Sinus rhythm. 82 normal axis no stemi
--- NOTE | 2023-11-07 12:06 | W.ED.GENAD ---
Discharge Plan Discharge Details Chief Complaint: GenMedical Reason For Visit: Cheo/ DIONNA Admit Date/Time: 11/07/23 13:35 Primary Care Provider: Monserrat Parker ED Provider: Charlene Martinez Home Meds and New Rx's Prescriptions: No Action acetaminophen [Mapap Extra Strength] 500 MG tablet 1,000 mg PO Q8H PRN0RF sucralfate 1 GM/10 ML suspension 1 gm PO AC & HS 30 Days 0RF spironolactone 25 MG tablet 25 mg PO DAILY Qty: 30 0RF magnesium oxide [MagOx] 400 MG tablet 400 mg PO BID Qty: 60 0RF pantoprazole 40 MG tablet,delayed release (DR/EC) 40 mg PO BID@729,1999 Qty: 60 0RF Patient Comments: 03/03/16 Pt states he only takes in am. PG mirtazapine [Remeron] 15 MG tablet 15 mg PO HS Qty: 30 0RF chlorhexidine gluconate 0.12 % mouthwash 15 ml PO .COMPLEX Patient Comments: RINSE WITH 15ML BY MOUTH 5 TIMES A DAY Rx Instructions: 15 mL orally fivr times a day; levothyroxine 100 mcg tablet 100 mcg PO ONCE Patient Comments: TAKE ONE TABLET BY MOUTH ONCE DAILY HPI General Date/Time Provider Initiated Documentation: 11/07/23 11:55. Limitations to Documentation: no limitations. Information obtained by: patient. HPI Narrative: 58-year-old gentleman with past medical history of head and neck cancer, followed by [facility], presents for evaluation of worsening fatigue, fever, cough. He reports that he has had poor oral intake over the last several days. He reports that his cough is worsened and he has thick mucus. He reports that he is not currently on chemotherapy and does not see his oncologist until next month. Related Data Home Medications Medication Instructions Recorded Confirmed acetaminophen 500 mg tablet (Mapap 1,000 mg (2 x 500 mg) PO Q8H PRN 09/17/15 11/07/23 Extra Strength) magnesium oxide 400 mg (241.3 mg 400 mg PO BID #60 tabs 09/17/15 11/07/23 magnesium) tablet (MagOx) mirtazapine 15 mg tablet (Remeron) 15 mg PO HS #30 tabs 09/17/15 11/07/23 pantoprazole 40 mg tablet,delayed 40 mg PO BID@ ##60 09/17/15 11/07/23 release spironolactone 25 mg tablet 25 mg PO DAILY #30 tabs 09/17/15 11/07/23 sucralfate 100 mg/mL oral 1 gm (10 mL) PO AC & HS 30 days 09/17/15 11/07/23 suspension chlorhexidine gluconate 0.12 % 15 ml PO .COMPLEX 11/07/23 11/07/23 mouthwash levothyroxine 100 mcg tablet 100 mcg PO ONCE 11/07/23 11/07/23 Previous Rx's Medication Instructions Recorded acetaminophen 500 mg tablet (Mapap 1,000 mg (2 x 500 mg) PO Q8H PRN 09/17/15 Extra Strength) magnesium oxide 400 mg (241.3 mg 400 mg PO BID #60 tabs 09/17/15 magnesium) tablet (MagOx) mirtazapine 15 mg tablet (Remeron) 15 mg PO HS #30 tabs 09/17/15 pantoprazole 40 mg tablet,delayed 40 mg PO BID@ ##60 09/17/15 release spironolactone 25 mg tablet 25 mg PO DAILY #30 tabs 09/17/15 sucralfate 100 mg/mL oral 1 gm (10 mL) PO AC & HS 30 days 09/17/15 suspension Allergies Allergy/AdvReac Type Severity Reaction Status Date / Time No Known Allergies Allergy Verified 11/07/23 11:52 General Stated Complaint: GenMedical RAE: 3 Exam Narrative Exam Narrative: Review of Systems: All systems reviewed & are unremarkable except as noted in HPI and below Cachectic, ill-appearing NCAT PERRL, normal conjunctiva Surgical changes of the head and neck RRR, no murmur Unlabored respiratory effort, mild tachypnea, no hypoxia, coarse breath sounds with crackles bilaterally Nondistended abdomen Extremities w/o deformity, no cyanosis, no edema No rashes or lesions. no focal neurologic deficits Appropriate mood and affect Course Vital Signs Vital signs: Vital Signs Pulse 87 11/07/23 11:43 Respiratory Rate 16 11/07/23 11:43 Blood Pressure 132/80 11/07/23 11:43 Pulse Oximetry 96 11/07/23 11:43 Temperature 37.3 C 11/07/23 11:59 Temperature Source Skin 11/07/23 11:59 Pulse 87 11/07/23 11:43 Respiratory Rate 16 11/07/23 11:50 Respiratory Effort Normal 11/07/23 11:50 Respiratory Depth Normal 11/07/23 11:50 Respiratory Pattern Normal 11/07/23 11:50 Blood Pressure 132/80 11/07/23 11:43 Blood Pressure Position Sitting 11/07/23 11:43 Pulse Oximetry 96 11/07/23 11:43 Oxygen Delivery Method Room Air 11/07/23 11:43 Oxygen Flow Rate 0 11/07/23 11:43 Medical Decision Making Emergent evaluation of cough. Patient is generally ill-appearing, we do not have much medical record available for him here, but I reviewed the records at [facility]. He does have significant history of head neck cancer and is followed closely by them. He is not currently on therapy and appears to be in a remission state. He has what appears to be some history of aspiration secondary to his significant surgical resections of the neck, but does not have a tracheostomy, does not have a feeding tube. I suspect a URI or pneumonia based on his symptoms and the way his lungs sound. Lab work obtained. No significant leukocytosis or electrolyte derangement though he appears to be likely dehydrated. He was resuscitated with IV fluids. Will start antibiotics. Chest x-ray reviewed, there is some chronic appearing changes without a large focal consolidation. Discussed treatment plan options with the patient, and at this time he states that he feels too weak to go home. I discussed with the hospitalist and we will admit to the hospital for further antibiotic treatment and fluid resuscitation. 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 not on current treatment, just surveillance other malignancy: tonsil cancer 2010, floor of mouth squamous cell 2009, mandible lesions 2017 Quality:SDOH Health Related Social Needs: No Data to Display PFSH All Active Problems Right rotator cuff tear (Acute) Tongue lesion (Acute) Infection of skin and subcutaneous tissue (Acute) Oral candidiasis (Acute) Anemia associated with acute blood loss (Acute) Upper GI bleeding (Acute) PUD (peptic ulcer disease) (Acute) Tobacco dependence (Acute) Alcoholism (Acute) Sebaceous cyst (Acute) Sutures removed without difficulty Medical History Oral cancer Alcoholic cirrhosis Head and neck cancer Chronic hepatitis Alcohol abuse Tobacco dependency Lipoma of back Surgical History Gastroscopy (04/22/15) Social History Smoking/Tobacco Use Status: Current every day Tobacco Type: cigarettes Smoking risk assessment performed?: Yes Alcohol Intake: never Drug use: Never Do you feel safe at home: Yes Do you feel safe in your relationship?: Yes Additional Social history: lives with sister
--- NOTE | 2023-11-07 12:26 | DI.VRAD_ITS ---
PROCEDURE INFORMATION: Exam: XR Chest Exam date and time: 11/07/2023 12:05 PM Age: 58 years old Clinical indication: Cough TECHNIQUE: Imaging protocol: Radiologic exam of the chest. Views: 1 view. COMPARISON: CT CHEST WO 01/16/2022 2:07 PM FINDINGS: Lungs: Hyperinflated lungs. Bilateral lower lobe fibrotic changes. Superimposed infiltrates in the lower lobes fluid. Pleural spaces: Unremarkable. No pleural effusion. No pneumothorax. Heart/Mediastinum: Unremarkable. No cardiomegaly. Bones/joints: Mild degenerative disease of the left acromioclavicular joint. Mild curvature thoracic spine convex to the left. IMPRESSION: Hyperinflated lungs with bilateral lower lobe fibrotic changes. Superimposed lower lobe infiltrates are not totally excluded. Dictated and Authenticated by: Melchor Savage MD. Ordering:CARA Murillo MD
[2023-11-07 12:27] LABS: Abs Immature Grans 0.02 10^3/uL (0.0-0.06); Absolute Basophil Count 0.03 10^3/uL (0.0-0.2); Absolute Lymphocyte Count 0.64 10^3/uL (1.2-3.4); Absolute Monocyte Count 0.45 10^3/uL (0.1-0.8); Absolute Neutrophil Count 6.96 10^3/uL (1.2-6.7); Basophils % 0.4; HCT 38.7 % (40.0-50.0); HGB 12.3 g/dL (13.5-17.5); Immature Grans % 0.2; Lymphocytes % 7.9; MCH 25.8 pg (27.0-33.0); MCHC 31.8 % (32.0-36.0); MCV 81 fL (80-95); MPV 9.5 fL (8.0-11.0); Monocytes % 5.6; Neutrophils % 85.9; Platelet Count 280 10^3/uL (130-400); RBC 4.76 10^6/uL (4.36-5.78); RDW 14.5 % (11.8-14.1); RDW-SD 42.5 fL
[2023-11-07 12:36] LABS: ALT 11 U/L (16-63); AST 13 U/L (15-37); Albumin 2.4 g/dL (3.4-5.0); Alkaline Phosphatase 141 U/L (46-116); Anion Gap 12.6 mmol/L (3-11); BUN 23 mg/dL (7-18); Bilirubin, Total 0.5 mg/dL (0.2-1.0); CO2 25.4 mmol/L (21.0-32.0); CREATININE 1.2 mg/dL (0.70-1.30); Calcium 9.9 mg/dL (8.5-10.1); Chloride 103 mmol/L (98-107); Estimated GFR 69.23 (mL/min/1.73m2); Glucose 107 mg/dL (74-106); Potassium 3.6 mmol/L (3.5-5.1); Sodium 141 mmol/L (136-145); Total Protein 7.7 g/dL (6.4-8.2)
[2023-11-07] MEDS: Normal Saline 1,000 ML 1000 ML IV (12:59)
[2023-11-07] MEDS: levoFLOXacin 750 MG/150 ML BAG 100 MG IVPB (13:24)
[2023-11-07 14:34] LABS: COVID-19 PCR Negative (Negative); Influenza A PCR Negative (Negative); Influenza B PCR Negative (Negative); RSV PCR Negative (Negative)
[2023-11-07 15:02] LABS: Source Nasopharynx
--- NOTE | 2023-11-07 16:42 | W.PM.HP.N ---
Date of service: 11/07/23 Time of Service: 16:43 Assessment and Plan Assessment and plan (1) Acute bronchitis: Status: Acute Assessment and plan: Change abx to doxycycline and unasyn due to high suspicion for aspiration. Obtain speech therapy consult. C/s respiratory therapy. (2) Dysphagia: Status: Acute Assessment and plan: C/s speech therapy and surgery in am. (3) Failure to thrive in adult: Status: Acute Assessment and plan: C/s palliative care C/s nutrition (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 Now with dysphagia and severe weight loss. C/s speech therapy and palliative care. (5) Alcoholism: Status: Resolved Assessment and plan: The patient no longer drinks. (6) Malnutrition: Status: Acute Assessment and plan: BMI 13.7. C/s nutrition (7) Alcoholic cirrhosis: Assessment and plan: HOld spironolactone as clinically dehydrated. Low sodium diet (8) Oral candidiasis: Status: Acute Assessment and plan: IV fluconazole. (9) DVT prophylaxis: Status: Acute Assessment and plan: Enoxaparin SC (10) Discharge planning issues: Status: Acute Assessment and plan: DNR/DNI History of Present Illness History of Present Illness Chief Complaint: fatigue, fever, productive cough Narrative: Mr Lopes is a 58 year old male with h/o tongue malignancy s/p partial glossectomy/neck dissection, XRT, and chemotherapy, reportedly in remission (his ENT records are not available for my review), without trach/PEG, dysphagia, alcoholism in remission, alcoholic cirrhosis, upper GI bleeding in the past (per chart review; the patient denies this), who presented to [facility] ED c/o fatigue, poor PO intake, fever, and productive cough. In the ED, he was afebrile and not requiring oxygen. However, he looked very clinically ill, and there was a clinical suspicion for pneumonia even though CXR did not get read as pneumonia. The patient was given empiric levofloxacin. A hospitalist admission was requested. The patient is getting placed in observation status with plans for a speech therapy evaluation. On my interview with the patient, he says that he is here because he can't eat or drink. He specifically denies fevers, endorsed a chronically runny nose, denies sore throat, endorsed a chronic cough productive of yellow sputum, endorsed chronic shortness of breath. He still smokes 1/2 ppd (used to smoke 2 ppd). He no longer drinks (says he stopped 3-5 years ago). He says he lost 25 lbs in 1 month because the food gets stuck in his throat and then comes up. He coughs with thin and thickened fluids. He says he is not supposed to be on a modified diet, that he never had a gastrostomy or a tracheostomy. He says his cancer is in remission. Review of Systems All systems reviewed & are unremarkable except as noted in HPI and below PFSH All Active Problems (Updated 11/07/23 @ 21:13 by Alea Cade MD) Malnutrition (Acute) Failure to thrive in adult (Acute) Discharge planning issues (Acute) DVT prophylaxis (Acute) Dysphagia (Acute) Acute bronchitis (Acute) Right rotator cuff tear (Acute) Tongue lesion (Acute) Infection of skin and subcutaneous tissue (Acute) Oral candidiasis (Acute) Anemia associated with acute blood loss (Acute) Upper GI bleeding (Acute) PUD (peptic ulcer disease) (Acute) Tobacco dependence (Acute) Sebaceous cyst (Acute) Sutures removed without difficulty Medical History Oral cancer Alcoholic cirrhosis Head and neck cancer Chronic hepatitis Alcohol abuse Tobacco dependency Lipoma of back Surgical History Gastroscopy (04/22/15) Social History Smoking/Tobacco Use Status: Current every day Tobacco Type: cigarettes Smoking packs per day: 1 Smoking cigarettes per day: 20.0 Years smoked: 40 Smoking pack-years: 40.00 Tobacco: How many years used: 40 Smoking risk assessment performed?: Yes Alcohol Intake: never Drug use: Never Housing: house Do you feel safe at home: Yes Do you feel safe in your relationship?: Yes Additional Social history: lives with sister Meds Allergies and Home Medications Allergies Allergy/AdvReac Type Severity Reaction Status Date / Time No Known Allergies Allergy Verified 11/07/23 11:52 Home Medications Medication Instructions Recorded Confirmed Type acetaminophen 500 mg tablet (Mapap 1,000 mg (2 x 500 mg) PO Q8H PRN 01/05/16 02/25/24 Rx Extra Strength) magnesium oxide 400 mg (241.3 mg 400 mg PO BID #60 tabs 09/17/15 11/07/23 Rx magnesium) tablet (MagOx) mirtazapine 15 mg tablet (Remeron) 15 mg PO HS #30 tabs 09/17/15 11/07/23 Rx pantoprazole 40 mg tablet,delayed 40 mg PO BID@0730,2000 ##60 09/17/15 11/07/23 Rx release spironolactone 25 mg tablet 25 mg PO DAILY #30 tabs 09/17/15 11/07/23 Rx sucralfate 100 mg/mL oral 1 gm (10 mL) PO AC & HS 30 days 09/17/15 11/07/23 Rx suspension chlorhexidine gluconate 0.12 % 15 ml PO .COMPLEX 11/07/23 11/07/23 History mouthwash levothyroxine 100 mcg tablet 100 mcg PO ONCE 11/07/23 11/07/23 History Exam Narrative Exam Narrative: General: a pleasant cachectic middle-aged male who is A&Ox3, appears comfortable in bed Neurological: A&Ox3, no focal deficits Psychiatric: Appropriate speech pattern/content Skin: Visible skin dry, intact, + skin tenting HEENT: Atraumatic, normocephalic, EOMI, dry MM, white film over tongue, otherwise a clear oropharynx, s/p neck dissection, no lymphadenopathy/goiter or JVD Cardiovascular: RRR, no m/r/g Lungs: expiratory rhonchi B Gastrointestinal: soft, nontender, nondistended Genitourinary: deferred Extremities: no edema BLEs, trace pedal pulses, + clubbing, no cyanosis. Results Imaging Additional studies: CXR: Heart size is upper normal. The mediastinum is not widened. Hyperinflation again noted. Bilateral lung base fibrotic changes are noted, predominately in the left lower lobe and what appears to be the right middle lobe and lower lobe. No pleural effusions. Subtle nodular density also noted in the right lung base, difficult to determine intraparenchymal versus is breast nipple. There are no pleural effusions. EKG: HR 82, NSR, no acute ischemia Labs 11/07/23 12:00 11/07/23 12:00 Labs: Laboratory Results - last 24 hr 11/07/23 11/07/23 11/07/23 12:00 13:35 13:45 WBC 8.10 RBC 4.76 Hgb 12.3 L Hct 38.7 L MCV 81 MCH 25.8 L MCHC 31.8 L RDW 14.5 H Plt Count 280 MPV 9.5 Immature Gran % 0.2 Neutrophils % 85.9 Lymphocytes % 7.9 Monocytes % 5.6 Eosinophils % 0.0 Basophils % 0.4 Nucleated RBC % 0.0 Absolute Neutrophils 6.96 H Absolute Lymphocytes 0.64 L Absolute Monocytes 0.45 Absolute Eosinophils 0.00 Absolute Basophils 0.03 Sodium 141 Potassium 3.6 Chloride 103 Carbon Dioxide 25.4 Anion Gap 12.6 H BUN 23 H Creatinine 1.2 Est GFR (CKD-EPI 2020) 69.23 Glucose 107 H Calcium 9.9 Total Bilirubin 0.5 AST 13 L ALT 11 L Alkaline Phosphatase 141 H Total Protein 7.7 Albumin 2.4 L COVID-19 Source Cancelled Nasopharynx SARS-CoV-2 (PCR) Cancelled Negative Influenza Type A (PCR) Cancelled Negative Influenza Type B (PCR) Cancelled Negative RSV (PCR) Cancelled Negative Last Vital Signs Temp 36.2 C L 11/07/23 15:56 Pulse 82 11/07/23 15:56 Resp 18 11/07/23 15:56 BP 135/79 11/07/23 15:56 Pulse Ox 95 11/07/23 15:56 Time Spent Time spent with Patient: 55-74 minutes Time was spent: preparing to see the patient(eg.review tests), obtaining and/or reviewing separately otained hiistory, ordering medications,tests, procedures, referring, communicating with other health primary care nurse, indepentently interpreting results, counseling the patient and care coordination
[2023-11-07] MEDS: Sucralfate 1 GM TAB PO ×2 (16:47→20:27)
[2023-11-07] MEDS: Normal Saline Flush 10 ML SYR IVP ×3 (17:49→20:50)
[2023-11-07] MEDS: THIAMINE 100 MG in Normal Saline 100 ML 200 MG IVPB (17:50)
[2023-11-07] MEDS: Enoxaparin 40 MG/0.4 ML SYR SC (18:47)
[2023-11-07] MEDS: AMPICILLIN/SULBACTAM 3 GM in Normal Saline 100 ML IVPB (18:47)
[2023-11-07] MEDS: methylPREDNISolone SUCC 125 MG VIAL IVP (18:47)
--- NOTE | 2023-11-07 19:08 | RESPIRATORY ---
RT Assessment Start: 11/07/23 16:51 Freq: .q shift and prn Status: Active Protocol: Document 11/07/23 18:58 (Rec: 11/07/23 19:07 [id number]) RT Assessment Smoking History Smoking/Tobacco Use Status Current every day Tobacco: How many years used 40 Tobacco Type cigarettes Packs per Day 1 Cigarettes per Day 20 Years smoked 40 Smoking packs per day 1 OXYGEN HISTORY: Supplemental O2 At Rest 0 With Exertion 0 CPAP Settings N/A BIPAP Settings N/A Trilogy/AVAPS Settings N/A DME/Compliance DME N/A Compliance N/A Current Respiratory Symptoms Current Respiratory Symptoms Cough,Wheezing Activity Activity Level Patient states he does his own laundry and dishes and house work. Respiratory Breath Sounds Breath Sounds Phuc wheezing Response Mild response,subjective improvement Pulse Rate <100 Respiratory Rate <18 Shortness of Breath On exertion Respiratory Therapy Score Total 5 Assessment and Plan RT Treatment Protocol Bronchodilator Aerosol Therapy Protocol,Lung Expansion Therapy Protocol,Bronchial Hygiene Therapy Protocol Note Patient scored a 5. RT initiated VibraPEP acapella device, incentive spirometry, and gave scheduled Duoneb treatment. Patient is currently 97% on room air. Patient states that he has never used O2 at home or any other breathing devices or medications. Patient has smoking history, but no formal diagnosis of COPD since he has never had a PFT. Patient states he has been smoking marijuana and cigarettes for aprx 40 years now. No other history of pulmonary issues given.
[2023-11-07] MEDS: Albuterol/Ipratropium 3 ML UPD VIAL UPD (19:11)
[2023-11-07] MEDS: MAGNESIUM SULFATE 8.12 MEQ, MULTIVITAMIN 10 ML, THIAMINE 100 MG, FOLIC ACID 1 MG in Nor... 80 MG IV (20:26)
[2023-11-07] MEDS: Pantoprazole 40 MG TABCR PO (20:26)
[2023-11-07] MEDS: Magnesium Oxide 400 MG TAB PO (20:26)
[2023-11-07] MEDS: Mirtazapine 15 MG TAB PO (22:21)
[2023-11-07] MEDS: FLUCONAZOLE 200 MG/100 ML BAG 100 MG IVPB (22:21)
[2023-11-08] VITALS (8 sets, daily range): BP systolic 102–125; BP diastolic 64–73; PULSE 63–83; RESP 6–18; TEMP 34.8–36.6; O2SAT 91–97
--- NOTE | 2023-11-08 | DI.CT_ITS ---
Exam(s) CT CHEST W EXAM: CT CHEST W CLINICAL HISTORY: questionable RLL lung nodule, fibrotic lung change. TECHNIQUE: Multi planar reconstructions were performed. CONTRAST MATERIAL: Omnipaque 350; 75 cc COMPARISON: CT CT CHEST WO from 01/16/2022 CR,XR XR PORTABLE CHEST AP from 11/07/2023 FINDINGS: CHEST: LUNGS: There is asymmetric scar infiltrate in the right lung apex which is relatively stable when com pared to January 2022 and not associated with overlying rib destruction There is prominent confluent infiltrate in the right lower lobe involving all segments but most promi nent in the posterior basal segment. There are only minimal increased markings at this location on t he January 2022 study. There is no associated pleural effusion. There is also infiltrate in the right m iddle lobe which was previously present but has increased. In the opposite-left lung there is significant increased interstitial and some confluent infiltrate i n left lower lobe. Unchanged 8 millimeter granuloma in the posterior basal segment of the left lower lobe is again noted. No pleural effusion. No focal findings in the trachea. There is mucous on the dependent wall the left mainstem bronchus. Right mainstem bronchus is clear. MEDIASTINUM: There is no hilar adenopathy. No anterior mediastinal adenopathy. Foy slightly enlarg ed subcarinal lymph nodes are noted. Left thyroid lobe nodule noted.Thyroid gland itself is not enla rged. CARDIAC: Heart size is normal. There is no pericardial effusion.Thoracic aorta is intact. Normal si ze. No dissection. VISUALIZED UPPER ABDOMEN:There are no significant adrenal masses. Cholelithiasis noted with layering gallstones in the gallbladder lumen. No evidence of acute cholecystitis. OSSEOUS: No significant osseous lesions.No fractures.. IMPRESSION: 1. Compared to the prior CT scan of January 2022 there are now significant increase in bilateral infiltra brittany in both lower lobes. Prominent bilaterally but more so in the posterior basal segment right lowe r lobe. Also significant infiltrate in the right middle lobe, but further increased from previous CT of January 2022. No pleural effusions. 2. Mucous noted on the dependent wall of the left mainstem bronchus. 3. Unchanged spiculated asymmetric density in the right lung apex which appears relatively stable whe n compared to 01/16/2022. This is pleural based but not associated with rib destruction. Cholelithiasis noted. RADIATION DOSE DELIVERED: 341.19mGy.cm Total DLP DATA REPOSITORY: All CT scans at this facility are submitted to the National Radiology Data Registry (NRDR) Dose Index Registry (DIR) with the [employer] ([employer]). RADIATION OPTIMIZATION: All CT scans at this facility use at least one of these dose optimization te chniques: automated exposure control; mA and/or kV adjustment per patient size (includes targeted exa ms where dose is matched to clinical indication); or iterative reconstruction.
[2023-11-08] MEDS: AMPICILLIN/SULBACTAM 3 GM in Normal Saline 100 ML IVPB ×5 (00:38→23:39)
[2023-11-08] MEDS: Normal Saline Flush 10 ML SYR IVP ×3 (00:38→17:54)
[2023-11-08] MEDS: Levothyroxine 100 MCG TAB PO (06:26)
[2023-11-08] MEDS: Albuterol/Ipratropium 3 ML UPD VIAL UPD (06:26)
[2023-11-08 06:35] LABS: Abs Immature Grans 0.02 10^3/uL (0.0-0.06); Absolute Basophil Count 0.01 10^3/uL (0.0-0.2); Absolute Lymphocyte Count 0.48 10^3/uL (1.2-3.4); Absolute Monocyte Count 0.07 10^3/uL (0.1-0.8); Absolute Neutrophil Count 5.71 10^3/uL (1.2-6.7); Basophils % 0.2; HCT 37.1 % (40.0-50.0); HGB 11.6 g/dL (13.5-17.5); Immature Grans % 0.3; Lymphocytes % 7.6; MCH 25.1 pg (27.0-33.0); MCHC 31.3 % (32.0-36.0); MCV 80 fL (80-95); MPV 9.8 fL (8.0-11.0); Monocytes % 1.1; Neutrophils % 90.8; Platelet Count 246 10^3/uL (130-400); RBC 4.62 10^6/uL (4.36-5.78); RDW 14.4 % (11.8-14.1); RDW-SD 42.1 fL; WBC 6.29 10^3/uL (4.4-10.8)
[2023-11-08 07:04] LABS: Anion Gap 12.8 mmol/L (3-11); BUN 18 mg/dL (7-18); CO2 23.2 mmol/L (21.0-32.0); CREATININE 0.9 mg/dL (0.70-1.30); Calcium 9.4 mg/dL (8.5-10.1); Chloride 104 mmol/L (98-107); Estimated GFR 97.78 (mL/min/1.73m2); Glucose 143 mg/dL (74-106); Magnesium 2.1 mg/dL (1.8-2.4); Potassium 3.8 mmol/L (3.5-5.1); Sodium 140 mmol/L (136-145); TSH 3.78 uIU/mL (0.36-3.74)
[2023-11-08] MEDS: Sucralfate 1 GM TAB PO ×4 (07:53→20:53)
[2023-11-08] MEDS: Pantoprazole 40 MG TABCR PO ×2 (07:53→20:54)
[2023-11-08] MEDS: methylPREDNISolone SUCC 40 MG VIAL IVP (07:53)
[2023-11-08] MEDS: Magnesium Oxide 400 MG TAB PO ×2 (07:53→20:53)
[2023-11-08] MEDS: DOXYCYCLINE 100 MG in Normal Saline 100 ML IVPB ×2 (08:17→20:54)
[2023-11-08] MEDS: Normal Saline - Diluent 50 ML VIAL IJ (09:22)
[2023-11-08] MEDS: Omnipaque 350 MG/ML 500 ML BTL-Imaging package 70 ML IJ (09:24)
--- NOTE | 2023-11-08 09:24 | SP_ITS ---
Date of service: 11/08/23 Time of Service: 08:00 Subjective Clinical (Bedside) Swallow Evaluation Speech Language Pathology Referred by: Dr. 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 Date of this initial cancer is unknown; patient suspects 15-20 years ago. There is also a note hx diagnosed L VF paralysis in last TOOL CRIB CLERK note in 12/2021. He reports he has never had a feeding tube to date. Last known MBSS was in December 2021 at [facility]. This revealed overt silent aspiration both during swallow onset and after swallow onset from pyriform sinus residue with most consistencies (liquids > solids). Please see r ramo for full information. He was instructed to complete a head turn to the left and throat clear/re-swallow for every consistency. He was also encouraged to follow up with outpatient TOOL CRIB CLERK for trial of respiratory muscle strength training, though it does not appear there was follow through with this. Currently, Vin presents with >25lb weight loss across the past month. He reports his dysphagia has been 'bad since the get-go' and doesn't necessarily feel it has gotten worse, though acknowledges he is not able to eat/drink very much and that it has become more fatiguing to do so. He did recall the strategy to turn head to left/throat clear and re-swallow, and is still doing this when he eats/drinks. TOOL CRIB CLERK IMPRESSIONS & RECOMMENDATIONS: Vin presents with severe chronic oral pharyngeal cancer characterized by the following: impaired lingual/labial strength, suspected impaired velopharyngeal closure (patient plugs nose while swallowing to avoid nasal regurgitation), and suspected incomplete swallow reflex in the setting of severe fibrosis of the suprahyoid region. The patient's hyolaryngeal movement appears incomplete, and there is immediate wet cough noted after each swallow with all consistencies (thin/thick liquids, puree solids). Vin states this is his baseline and has been for 'a very long time'. There is very high suspicion of yakov aspiration with all consistencies trialed, and patient's presentation indicates suspected worsening of dysphagia findings compared to last MBSS - likely due to late effects of radiation. In light of effort/time for small amounts of PO at bedside assessment, paired with recent weight loss, there is very high concern of patient's ability to meet nutrition orally. TOOL CRIB CLERK discussed this with the patient, including broaching conversation re: alternate nutrition/PEG. He expressed I don't know, but I know I need to do something. TOOL CRIB CLERK will await palliative care consult for further guidance re: goals of care. Pending results of palliative meeting- modified barium swallow study would likely be beneficial for updated findings on swallow function/updated recommendations for PO intake. TOOL CRIB CLERK consulted with PC provider who will discuss plan with patient. In light of chronic nature of dysphagia, recommend diet modifications and strict aspiration precautions as outlined below. However, recommend low tolerance for transition to NPO with worsening respiratory status. Patient is aware of needed diet modifications and strategies. FURTHER TOOL CRIB CLERK SERVICES: Patient to be followed while on unit. Upon Discharge, outpatient consult requested vs home health TOOL CRIB CLERK services likely beneficial Diet Recommendations: SOLIDS: 4-Pureed Solids LIQUIDS: 0-Thin Liquids (Straw required due to labial weakness) MEDICATIONS: Whole with 0-Thin Liquids, Please offer 1-2 bites of applesauce following pills. This is patient's preference. He is adamant he does not want pills crushed/cut as he feels this is more challenging for him. HOB bolt upright 90 degrees for all PO Maintain upright positioning 45-60 minutes after meals Complete oral care before/after meals. Patient requires oral care after meals to clear oral residue (swab with oral rinse) Encourage physical mobility as tolerated. Level of Assistance/Supervision: Intermittent supervision for all PO intake SUBJECTIVE: Patient received alert/awake, agreeable to evaluation Pain Reported? None Baseline Swallow Function: Patient drinks thin liquids and soft solids (applesauce, ice cream, soups, mac and cheese). He uses a 'prescription mouth rinse' after each meal to assist with oral residue clearance. PO Trials Assessed: IDDSI 0 Thin Liquids via straw IDDSI 2 Mildly Thick Liquid via straw IDDSI 4 Puree Solid - Ice cream Oral Mechanism Examination: Patient is edentulous. Oral mucosa is WFL. Cranial Nerve Assessment: CN V ? Trigeminal Jaw weakness noted ?Impaired CN VII- Facial Labial weakness- Patient unable to maintain lip seal. Impaired CN IX ? Glossopharyngeal Palatal deviation noted. Palate partially rises on phonation. Patient reports nasal regurgitation unless he plugs his nose with liquids Impaired CN X ? Vagus Wet cough noted after each Impaired CX XII ? Hypoglossal Lingual deviation to the right on protrusion. ROM appears mildly reduced globally. Strength is at least mildly reduced Suspect more significant BOT weakness Impaired Oral Phase Findings: Anterior leakage from mouth Difficulty with bolus manipulation Difficulty with a-p transport Difficulty chewing Residue Pharyngeal Phase Findings: Delayed swallow initiation Reduced hyolaryngeal elevation/excursion *Wet Cough after swallow *Voice change after swallow? *Throat clearing? *Noted with all consistencies. ? ASSESSMENT: Further TOOL CRIB CLERK Services indicated. Patient to be followed while on unit. Recommendation at Discharge: TOOL CRIB CLERK Services via Home Health vs TOOL CRIB CLERK Outpatient Services, to be determined Suggested Referrals: Palliative Care referral pending for C guidance Recommended Procedures: MBSS (pending goals of care) Recommendations: ? Education Provided to: Nursing, Patient, Physician Topics Addressed: TOOL CRIB CLERK findings PLAN: Frequency: 2-3x/week for 1-2 weeks Goals: Liability Claims Adjuster Goals: Patient will remain free from aspiration-related illness, malnutrition, and dehydration. Short Term Goals: Patient will tolerate Puree Diet and Thin liquids without overt s/s aspiration across 2/2 visits. TOOL CRIB CLERK CPT Code: 84484 Clinical Swallowing Evaluation TOTAL TIME: 25 Minutes [id number]
[2023-11-08 09:56] LABS: Lab Add On Test DONE
[2023-11-08 10:32] LABS: Procalcitonin 0.3 ng/mL
--- NOTE | 2023-11-08 17:05 | PCNE_ITS ---
Date of service: 11/08/23 Time of Service: 14:15 History of Present Illness Narrative: Mr. Banuelos is a 58 y/o M currently inpatient at [facility] r/t failure to thrive and potential PNA; PMHx sig for head and neck cancer history, s/p 2 rounds chemo/rad, last comleted 07/2021; PC consult placed today to determine GOC for feeding tube placement Hospital course: presented to ED on 11/07 w/CC fatigue, fever, cough w/worsening PO intake over previous few days, work up consistent w/aspiration PNA vs URI w/FTT; admitted for abx, fluids and monitoring; consult w/ORTHOPEDIC PHYSICIAN ASSISTANT today recommend consider FT placement, MBSS, vs comfort Vin reports long standing dysphagia, for greater than 10 years; typically able to modify PO intake to accommodate, has been getting harder, over last month has been having harder time maintaining weight w/increase rapid weight loss d/t not feeling well: cough, fatigue, weakness; ultimately w/decline leading to need for presenting to ED - he denies pain today, and typically; denies nausea - reports delay in presenting to HC system seeking care was r/t winter and trying to ensure his sister Kamila, whom lives with him, remained safe; they use use wood for heat; w/recent decline he was not able to take care of this; he is going to ask his plow man to take care of this task now, which relieves some of his worry/stress over his sister's health He has a routine follow up for w/oncology on 11/15/23 - he has never had a feeding tube, he is not opposed to learning more or trying to see if anything will work I ain't getting anywhere the way I'm going - his last MBSS was in December and indicated significant dysphagia, aspiration risk His goals are to stay eating, gain weight He confirms he is a DNR/I He is fatigued and would like to continue visit at a later time Assessment and Plan Assessment and plan (1) Malnutrition: Status: Acute Assessment and plan: ORTHOPEDIC PHYSICIAN ASSISTANT following agreeable to feeding tube Qualifiers: Malnutrition type: protein-calorie malnutrition Protein-calorie malnutrition severity: severe Qualified Code(s): E43 - Unspecified severe protein-calorie malnutrition (2) Failure to thrive in adult: Status: Acute (3) Dysphagia: Status: Acute Qualifiers: Dysphagia type: oropharyngeal phase Qualified Code(s): R13.12 - Dysphagia, oropharyngeal phase (4) Acute bronchitis: Status: Acute Qualifiers: Bronchitis organism: unspecified organism Qualified Code(s): J20.9 - Acute bronchitis, unspecified (5) Head and neck cancer: (6) DNR (do not resuscitate): Status: Acute (7) Palliative care patient: Status: Acute Assessment and plan: PC will continue to follow while inpatient, f/u for Tu or Wed continue to review GOC, related to QoL goals, more thorough assessment of ADLs (was ind prior to admission), feeding tube to complete COLST at f/u (8) ACP (advance care planning): Status: Acute Assessment and plan: reviewed options for pursuing feeding tube, no feeding tube, MBSS - as it related to his GOC - Vin would like to pursue a feeding tube at this time, he is comfortable with being transferred to [facility] if unsafe to do so at [facility]; he is agreeable to MBSS if it is thought to be necessary in his care he confirms he is a DNR/I, however defers paperwork completion until f/u d/t fatigue at time of visit spent 15 mins w/ACP Review of Systems Narrative: as per HPI PFSH All Active Problems (Updated 11/08/23 @ 17:18 by Val Clancy NP) DNR (do not resuscitate) (Acute) Palliative care patient (Acute) ACP (advance care planning) (Acute) Malnutrition (Acute) Failure to thrive in adult (Acute) Discharge planning issues (Acute) DVT prophylaxis (Acute) Dysphagia (Acute) Acute bronchitis (Acute) Right rotator cuff tear (Acute) Tongue lesion (Acute) Infection of skin and subcutaneous tissue (Acute) Oral candidiasis (Acute) Anemia associated with acute blood loss (Acute) Upper GI bleeding (Acute) PUD (peptic ulcer disease) (Acute) Tobacco dependence (Acute) Sebaceous cyst (Acute) Sutures removed without difficulty Medical History Oral cancer Alcoholic cirrhosis Head and neck cancer Chronic hepatitis Alcohol abuse Tobacco dependency Lipoma of back Surgical History Gastroscopy (04/22/15) Social History Smoking/Tobacco Use Status: Current every day Tobacco Type: cigarettes Smoking packs per day: 1 Smoking cigarettes per day: 20.0 Years smoked: 40 Smoking pack- years: 40.00 Tobacco: How many years used: 40 Smoking risk assessment performed?: Yes Alcohol Intake: never Drug use: Never Housing: house Do you feel safe at home: Yes Do you feel safe in your relationship?: Yes Additional Social history: lives with sister Exam Narrative Exam Narrative: General: thin, cachecix man, lying in dark room in bed; AAOx3 HEENT: atraumatic, normocephalic, hearing grossly WNL Resp: regular respiratory effort and rate, speaks full sentences w/no SOB, no audibule wheeze; 3 small coughs w/sip of water Psych: cooperative, pleasant, fatigued; thought process clear, judgment/insight fair to limited Results Last Vital Signs Temp 97.9 F 11/08/23 15:14 Pulse 74 11/08/23 15:14 Resp 18 11/08/23 15:14 BP 116/72 11/08/23 15:14 Pulse Ox 97 11/08/23 15:14 Labs 11/08/23 06:05 11/08/23 06:05 Labs: Laboratory Results - last 24 hr 11/08/23 11/08/23 11/08/23 06:04 06:05 09:55 WBC 6.29 RBC 4.62 Hgb 11.6 L Hct 37.1 L MCV 80 MCH 25.1 L MCHC 31.3 L RDW 14.4 H Plt Count 246 MPV 9.8 Immature Gran % 0.3 Neutrophils % 90.8 Lymphocytes % 7.6 Monocytes % 1.1 Eosinophils % 0.0 Basophils % 0.2 Nucleated RBC % 0.0 Absolute Neutrophils 5.71 Absolute Lymphocytes 0.48 L Absolute Monocytes 0.07 L Absolute Eosinophils 0.00 Absolute Basophils 0.01 Sodium 140 Potassium 3.8 Chloride 104 Carbon Dioxide 23.2 Anion Gap 12.8 H BUN 18 Creatinine 0.9 Est GFR (CKD-EPI 2020) 97.78 Glucose 143 H Calcium 9.4 Magnesium 2.1 Procalcitonin 0.3 TSH 3.78 H Add-On Test Request DONE
--- NOTE | 2023-11-08 17:08 | PGE_ITS ---
Date of Service Date of service: 11/08/23 Time of Service: 17:08 Assessment and Plan Assessment and plan (1) Acute bronchitis: Status: Acute Assessment and plan: afebrile, no hypoxemia. will give short course of Unasyn and doxycycline. continue prn nebulizers, encourage use of IS and acapella. await surgical eval for PEG. Qualifiers: Bronchitis organism: unspecified organism Qualified Code(s): J20.9 - Acute bronchitis, unspecified (2) Dysphagia: Status: Acute Assessment and plan: GEOPHYSICAL PROSPECTOR consult noted. await surgical eval for PEG tube Qualifiers: Dysphagia type: oropharyngeal phase Qualified Code(s): R13.12 - Dysphagia, oropharyngeal phase (3) Failure to thrive in adult: Status: Acute Assessment and plan: C/s palliative care C/s nutrition (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 Now with dysphagia and severe weight loss. C/s speech therapy and palliative care. (5) Alcoholism: Status: Resolved Assessment and plan: The patient no longer drinks. (6) Malnutrition: Status: Acute Assessment and plan: BMI 13.7. C/s nutrition Qualifiers: Malnutrition type: protein-calorie malnutrition Protein-calorie malnutrition severity: severe Qualified Code(s): E43 - Unspecified severe protein-calorie malnutrition (7) Alcoholic cirrhosis: Assessment and plan: HOld spironolactone as clinically dehydrated. Low sodium diet (8) Oral candidiasis: Status: Acute Assessment and plan: IV fluconazole. (9) DVT prophylaxis: Status: Acute Assessment and plan: Enoxaparin SC (10) Discharge planning issues: Status: Acute Assessment and plan: DNR/DNI Subjective Subjective Interval history since last seen: Vin denies any dyspnea although he had cough w/ each meal. GEOPHYSICAL PROSPECTOR met w/ him and did bedside evaluation and he did poorly w/ all consistencies tried. He has severe chronic oropharyngeal dysphagia secondary to prior orophyarngeal, lingual cancer resulting in poor labial/lingual motor control along w/ poor velopharyngeal closure. Recommended diet is pureed solids and thin liquids w/ use of straw. See GEOPHYSICAL PROSPECTOR note. Surgical consult pending for consideration of PEG tube. He is agreeable to having this done. Exam Narrative Exam Narrative: Cachectic middle-aged white male sitting up in bed not requiring supplemental oxygen he is alert and oriented no acute respiratory distress. Lungs with coarse bibasilar breath sounds with some rales no rhonchi or wheezing anteriorly he is clear and upper posterior ragland are clear Heart is regular rate and rhythm Abdomen is scaphoid no palpable masses organomegaly Extremities no peripheral edema or muscle wasting. Chest wall reveals wasting of his muscles. Objective Last Vital Signs Temp 36.6 C 11/08/23 15:14 Pulse 74 11/08/23 15:14 Resp 18 11/08/23 15:14 BP 116/72 11/08/23 15:14 Pulse Ox 97 11/08/23 15:14 Laboratory Results - last 24 hr 11/08/23 11/08/23 11/08/23 06:04 06:05 09:55 WBC 6.29 RBC 4.62 Hgb 11.6 L Hct 37.1 L MCV 80 MCH 25.1 L MCHC 31.3 L RDW 14.4 H Plt Count 246 MPV 9.8 Immature Gran % 0.3 Neutrophils % 90.8 Lymphocytes % 7.6 Monocytes % 1.1 Eosinophils % 0.0 Basophils % 0.2 Nucleated RBC % 0.0 Absolute Neutrophils 5.71 Absolute Lymphocytes 0.48 L Absolute Monocytes 0.07 L Absolute Eosinophils 0.00 Absolute Basophils 0.01 Sodium 140 Potassium 3.8 Chloride 104 Carbon Dioxide 23.2 Anion Gap 12.8 H BUN 18 Creatinine 0.9 Est GFR (CKD-EPI 2020) 97.78 Glucose 143 H Calcium 9.4 Magnesium 2.1 Procalcitonin 0.3 TSH 3.78 H Add-On Test Request DONE Time Spent with Patient Time Spent with Patient: 35-49 minutes Time was spent: preparing to see the patient(eg.review tests), ordering medications,tests, procedures, referring, communicating with other health hourly caregiver, indepentently interpreting results, counseling the patient and care coordination
[2023-11-08 17:24] LABS: Legionella Ag Detection Urine Negative (Negative)
[2023-11-08] MEDS: Enoxaparin 40 MG/0.4 ML SYR SC (17:54)
--- NOTE | 2023-11-08 18:38 | PDOC.CMIN ---
Date of service: 11/08/23 Time of Service: 18:38 Care Management Initial Assmt Initial Assessment REASON FOR HOSPITALIZATION:: Acute bronchitis, dysphagia, FTT PREVIOUS FUNCTIONAL STATUS/SOCIAL/FAMILY SUPPORTS:: Vin lives in [place] with his sister, Kamila, who goes by Jennifer. He reported that Jennifer works at [employer] in [employer]. Vin stated that he moved to [place] when his mother ; he couldn't recall how long ago it was (per previous report, he moved to [place] in April of 2015). He reported that he had cancer around that time as well. He stated that he and his sister support each other, although he considers himself to be fairly independent. He completes his ADL's independently. CURRENT FUNCTIONAL STATUS:: Vin was lying in bed when CM met with him. He stated that he has been busy today with a lot of people meeting with him. He saw Speech therapy today, and per report, he did poorly with all consistencies that were tried. His diet has been modified to pureed solids and thin liquids with the use of a straw. He met with Palliative care today, and discussed whether or not he would want a feeding tube; he stated that he does want a feeding tube. A surgical consult has been placed. He stated that he has lost a lot of weight in the past month, although he has been slowly losing weight over time. He plans to return home with his sister once he is medically cleared. CM discussed HH services; he stated that he has had them before. He is unsure that it would be helpful, but he will consider having HH services upon discharge. CM will continue to follow. ADVANCE DIRECTIVES:: Not on file. Has patient been provided with info about the portal/API?: Yes Did the patient sign up for the portal?: No CODE STATUS:: DNR/DNI INSURANCE COVERAGE / FINANCIAL ISSUES:: [employer] CURRENT HOME/COMMUNITY SERVICES/EQUIPMENT:: bam PRIMARY CARE PHYSICIAN:: Monserrat Parker POTENTIAL DISCHARGE NEEDS:: Evaluations for further needs, follow up appointments. PATIENT/FAMILY EDUCATION NEEDS:: Review discharge instructions and limitations, discussion of self care needs including ask me three. ANTICIPATED BARRIERS TO DISCHARGE:: None. TRANSPORTATION:: Via private vehicle by his sister. PLAN:: Vin will return home once medically cleared. He may benefit from HH services; CM will review this prior to discharge. His sister will drive him home via private vehicle. He will follow up with his PCP and discharge plan of care. CM will continue to follow. PFSH All Active Problems (Updated 11/08/23 @ 17:18 by Val Clancy NP) DNR (do not resuscitate) (Acute) Palliative care patient (Acute) ACP (advance care planning) (Acute) Malnutrition (Acute) Failure to thrive in adult (Acute) Discharge planning issues (Acute) DVT prophylaxis (Acute) Dysphagia (Acute) Acute bronchitis (Acute) Right rotator cuff tear (Acute) Tongue lesion (Acute) Infection of skin and subcutaneous tissue (Acute) Oral candidiasis (Acute) Anemia associated with acute blood loss (Acute) Upper GI bleeding (Acute) PUD (peptic ulcer disease) (Acute) Tobacco dependence (Acute) Sebaceous cyst (Acute) Sutures removed without difficulty Medical History Oral cancer Alcoholic cirrhosis Head and neck cancer Chronic hepatitis Alcohol abuse Tobacco dependency Lipoma of back Surgical History Gastroscopy (04/22/15) Social History Smoking/Tobacco Use Status: Current every day Tobacco Type: cigarettes Smoking packs per day: 1 Smoking cigarettes per day: 20.0 Years smoked: 40 Smoking pack-years: 40.00 Tobacco: How many years used: 40 Smoking risk assessment performed?: Yes Alcohol Intake: never Drug use: Never Housing: house Do you feel safe at home: Yes Do you feel safe in your relationship?: Yes Additional Social history: lives with sister JACKSON(Care Management) Screening Will the Patient Participate in the Screening?: Unable to obtain Do you worry about having a steady place to live?: yes In the past 12 months, have you had to go without electric, gas, oil or water in your home?: no Have you or anyone in your house had to go without enough food to eat?: no Has lack of transportation kept you from medical appointments or from doing things needed for daily living?: no Has anyone in your support network made you feel unsafe for any reason?: yes Health Related Social Needs Health related social needs: housing instability, housed, with risk of homelessness(Z59.811) and problem related to primary support group(Z63.9)
--- NOTE | 2023-11-08 18:51 | W.SURGCON ---
Date of service: 11/08/23 Time of Service: 18:52 Assessment and Plan Assessment and plan (1) Failure to thrive in adult: Status: Acute Assessment and plan: plan for EGD/PEG in the am npo ck abdominal xray pre op abx (2) Dysphagia: Status: Acute Qualifiers: Dysphagia type: oropharyngeal phase Qualified Code(s): R13.12 - Dysphagia, oropharyngeal phase History of Present Illness History of Present Illness Chief Complaint: dysphagia, failure to thrive Narrative: Mr Lopes is a 58 year old male with h/o tongue malignancy s/p partial glossectomy/neck dissection, XRT, and chemotherapy, reportedly in remission with dysphagia, alcoholism in remission, alcoholic cirrhosis, upper GI bleeding in the past. He presented to [facility] ED c/o fatigue, poor PO intake, fever, and productive cough. Workup for pneumonia was negative. Wang also c/o dysphagia, >25lb weight loss in one month due to inability to eat. He was evaluated by speech pathology today, who recommend consideration of a feeding tube to due aspiration and dysphagia observed during their study. He was also see by palliative care and has agreed to consideration for a feeding tube. patient denies any history of abdominal surgery, gastric or esophageal varices. he does admit to h/o PUD more than ten years ago. Review of Systems All systems reviewed & are unremarkable except as noted in HPI and below PFSH All Active Problems (Updated 11/08/23 @ 17:18 by Val Clancy NP) DNR (do not resuscitate) (Acute) Palliative care patient (Acute) ACP (advance care planning) (Acute) Malnutrition (Acute) Failure to thrive in adult (Acute) Discharge planning issues (Acute) DVT prophylaxis (Acute) Dysphagia (Acute) Acute bronchitis (Acute) Right rotator cuff tear (Acute) Tongue lesion (Acute) Infection of skin and subcutaneous tissue (Acute) Oral candidiasis (Acute) Anemia associated with acute blood loss (Acute) Upper GI bleeding (Acute) PUD (peptic ulcer disease) (Acute) Tobacco dependence (Acute) Sebaceous cyst (Acute) Sutures removed without difficulty Medical History Oral cancer Alcoholic cirrhosis Head and neck cancer Chronic hepatitis Alcohol abuse Tobacco dependency Lipoma of back Surgical History Gastroscopy (04/22/15) Social History Smoking/Tobacco Use Status: Current every day Tobacco Type: cigarettes Smoking packs per day: 1 Smoking cigarettes per day: 20.0 Years smoked: 40 Smoking pack-years: 40.00 Tobacco: How many years used: 40 Smoking risk assessment performed?: Yes Alcohol Intake: never Drug use: Never Housing: house Do you feel safe at home: Yes Do you feel safe in your relationship?: Yes Additional Social history: lives with sister Exam Const General: cooperative Nutritional Appearance: cachectic Orientation: alert, awake and oriented x3 Other: difficulty clearing secretions was noted on exam Resp Effort & Inspection: normal respiratory effort Auscultation: clear to auscultation bilaterally Cardio Rate: regular rate Rhythm: regular rhythm Heart Sounds: S1 normal and S2 normal GI Palpation: soft Other: abdomen- thin nontender, no surgical scars, no hernias Skin General skin exam: no rashes or lesions noted Results Last Vital Signs Temp 97.9 F 11/08/23 15:14 Pulse 74 11/08/23 15:14 Resp 18 11/08/23 15:14 BP 116/72 11/08/23 15:14 Pulse Ox 97 11/08/23 15:14 Labs 11/08/23 06:05 11/08/23 06:05 Labs: Laboratory Results - last 24 hr 11/08/23 11/08/23 11/08/23 06:04 06:05 09:55 WBC 6.29 RBC 4.62 Hgb 11.6 L Hct 37.1 L MCV 80 MCH 25.1 L MCHC 31.3 L RDW 14.4 H Plt Count 246 MPV 9.8 Immature Gran % 0.3 Neutrophils % 90.8 Lymphocytes % 7.6 Monocytes % 1.1 Eosinophils % 0.0 Basophils % 0.2 Nucleated RBC % 0.0 Absolute Neutrophils 5.71 Absolute Lymphocytes 0.48 L Absolute Monocytes 0.07 L Absolute Eosinophils 0.00 Absolute Basophils 0.01 Sodium 140 Potassium 3.8 Chloride 104 Carbon Dioxide 23.2 Anion Gap 12.8 H BUN 18 Creatinine 0.9 Est GFR (CKD-EPI 2020) 97.78 Glucose 143 H Calcium 9.4 Magnesium 2.1 Procalcitonin 0.3 TSH 3.78 H Add-On Test Request DONE
[2023-11-08] MEDS: Mirtazapine 15 MG TAB PO (20:54)
[2023-11-08] MEDS: FLUCONAZOLE 200 MG/100 ML BAG 100 MG IVPB (22:12)
[2023-11-09] VITALS (13 sets, daily range): BP systolic 100–134; BP diastolic 59–84; PULSE 60–77; RESP 16–21; TEMP 35.8–36.6; O2SAT 91–100; BMI 14.1
[2023-11-09] MEDS: Levothyroxine 100 MCG TAB PO (05:56)
[2023-11-09] MEDS: AMPICILLIN/SULBACTAM 3 GM in Normal Saline 100 ML IVPB ×2 (05:58→11:40)
--- NOTE | 2023-11-09 09:00 | DI.RAD_ITS ---
Exam(s) XR ABDOMEN FLAT UPRIGHT EXAM: 2D digital imaging was performed. CLINICAL HISTORY: pre op. COMPARISON: CR,XR XR PORTABLE CHEST AP from 11/07/[address] CHEST W from 11/08/2023 TECHNIQUE: Supine and upright views of the abdomen were performed. FINDINGS: Residual contrast in the urinary bladder related to prior chest CT. BOWEL GAS PATTERN: Nondistended.No free air. Small amount of stool noted in the rectum. Moderate st ool in ascending colon. Gas seen scattered in small bowel out dilated bowel loops or air-fluid level . CALCIFICATIONS: No urinary tract calcifications. OSSEOUS STRUCTURES: Normal for age. Visualized portions of chest: Underlying fibrotic changes in the lungs. Right lower lobe basilar inf iltrate again noted. IMPRESSION: 1. Nonobstructive bowel gas pattern. 2. Right lower lobe infiltrate. Underlying fibrotic changes. 3. No free air. DATA REPOSITORY: RADIATION DOSE DELIVERED:
[2023-11-09] MEDS: methylPREDNISolone SUCC 40 MG VIAL IVP (09:54)
[2023-11-09] MEDS: Normal Saline Flush 10 ML SYR IVP ×2 (09:55→20:25)
[2023-11-09] MEDS: DOXYCYCLINE 100 MG in Normal Saline 100 ML IVPB ×2 (09:56→20:26)
--- NOTE | 2023-11-09 10:21 | PDOC.CMPRO ---
Date of service: 11/09/23 Time of Service: 10:21 Care Management Progress Note Progress Note Text Progress Note Text: S/O: Vin was not in the room when CM attempted to meet with him. Per staff, he went to the OR for placement of his feeding tube. Vin met with Palliative care yesterday and stated that he does want a feeding tube. Per surgical report, the procedure was not able to be completed. CM will continue to follow. A: Vin is a 58 year old male admitted to [facility] on 11/07/23 with acute bronchitis, dysphagia, FTT. P: Vin will return home once medically cleared. He may benefit from services; CM will review this prior to discharge. His sister will drive him home via private vehicle. He will follow up with his PCP and discharge plan of care. CM will continue to follow. SDOH(Care Management) Screening Will the Patient Participate in the Screening?: Unable to obtain Do you worry about having a steady place to live?: yes In the past 12 months, have you had to go without electric, gas, oil or water in your home?: no Have you or anyone in your house had to go without enough food to eat?: no Has lack of transportation kept you from medical appointments or from doing things needed for daily living?: no Has anyone in your support network made you feel unsafe for any reason?: yes Health Related Social Needs Health related social needs: housing instability, housed, with risk of homelessness(Z59.811) and problem related to primary support group(Z63.9)
--- NOTE | 2023-11-09 13:12 | W.ANESPRE ---
General Info Date of Service Date Performed: 11/09/23 Height: 5 ft 8 in Weight: 41.957 kg Body Mass Index (BMI): 14.1 Surgical Procedure: Operation Date: 11/09/23 13:40 Proposed Procedure Side Surgeon p Gastroscopy Sheron Pastrana DO s Peg Tube Insertion Sheron Pastrana DO Meds Allergies and Home Medications Allergies Allergy/AdvReac Type Severity Reaction Status Date / Time No Known Allergies Allergy Verified 11/07/23 11:52 Home Medication Medication Instructions Recorded acetaminophen 500 mg tablet (Mapap 1,000 mg (2 x 500 mg) PO Q8H PRN 09/17/15 Extra Strength) magnesium oxide 400 mg (241.3 mg 400 mg PO BID #60 tabs 09/17/15 magnesium) tablet (MagOx) mirtazapine 15 mg tablet (Remeron) 15 mg PO HS #30 tabs 09/17/15 pantoprazole 40 mg tablet,delayed 40 mg PO BID@0730,1999 ##60 09/17/15 release spironolactone 25 mg tablet 25 mg PO DAILY #30 tabs 09/17/15 sucralfate 100 mg/mL oral 1 gm (10 mL) PO AC & HS 30 days 09/17/15 suspension chlorhexidine gluconate 0.12 % 15 ml PO .COMPLEX 11/07/23 mouthwash levothyroxine 100 mcg tablet 100 mcg PO ONCE 11/07/23 Current Visit Medications: Current Medications Generic Name Dose Route Start Last Admin Trade Name Freq PRN Reason Stop Dose Admin Acetaminophen 1,000 mg 11/07/23 16:02 Acetaminophen 500 Mg Tab PO Q8H PRN PRN Acetaminophen 0 mg 11/07/23 16:02 Acetaminophen 325 Mg Tab PO Q4H PRN PRN Al Hydrox/Mg Hydrox/Simethicone 30 ml 11/07/23 16:02 Mylanta Suspension 30 Ml Cup PO Q2H PRN PRN Albuterol Sulfate 2.5 mg 11/07/23 16:02 Albuterol 2.5 Mg/3 Ml Inh Soln Vial UPD Q2H PRN PRN Albuterol/Ipratropium 3 ml 11/08/23 14:09 Albuterol/Ipratropium 3 Ml Upd Vial UPD Q6H PRN PRN Chlorhexidine Gluconate 15 ml 11/07/23 18:00 11/09/23 10:04 Chlorhexidine Gluconate 0.12% Mouthwash 118 Ml Btl MM 15 ml 5X/DAY [facility] Administration Docusate Sodium 100 mg 11/07/23 16:02 Docusate Sodium 100 Mg Cap PO TID PRN PRN Enoxaparin Sodium 40 mg 11/07/23 18:00 11/08/23 17:54 Enoxaparin 40 Mg/0.4 Ml Syr SC 40 mg Q24H [facility] Administration Doxycycline Hyclate 100 mg/ 100 mls @ 100 mls/hr 11/08/23 08:00 11/09/23 09:56 Sodium Chloride IVPB 100 mls/hr Q12H [facility] Administration Fluconazole 200 mg in 100 mls @ 100 mls/hr 11/08/23 22:00 11/08/23 22:12 Diflucan/N. Saline 200 Mg/100 Ml IVPB 100 mls/hr Q24H [facility] Administration Cefepime HCl 2 gm/ Sodium 100 mls @ 200 mls/hr 11/09/23 13:00 Chloride IVPB Q8H [facility] IV Miscellaneous Supplies 1 each 11/07/23 16:02 Iv Access IV DIRECTED [facility] Levothyroxine Sodium 100 mcg 11/09/23 06:00 11/09/23 05:56 Levothyroxine 100 Mcg Tab PO 100 mcg DAILY@0600 [facility] Administration Magnesium Hydroxide 30 ml 11/07/23 16:02 Milk Of Magnesia 30 Ml Cup PO DAILY PRN PRN Magnesium Oxide 400 mg 11/07/23 20:00 11/09/23 09:56 Magnesium Oxide 400 Mg Tab PO Not Given BID [facility] Methylprednisolone Sodium Succinate 40 mg 11/08/23 08:30 11/09/23 09:54 Methylprednisolone Succ 40 Mg Vial IVP 40 mg DAILY [facility] Administration Miconazole Nitrate 0 gm 11/07/23 16:02 Miconazole 2% Topical Powder 85 Gm Btl TP BID PRN PRN Mirtazapine 15 mg 11/07/23 22:00 11/08/23 20:54 Mirtazapine 15 Mg Tab PO 15 mg HS [facility] Administration Nicotine 7 mg 11/07/23 17:51 Nicotine 7 Mg/24 Hr Patch TD DAILY PRN PRN Pantoprazole Sodium 40 mg 11/07/23 20:00 11/09/23 09:56 Pantoprazole 40 Mg Tabcr PO Not Given BID@0730,1999 [facility] Polyethylene Glycol 17 gm 11/07/23 16:02 Polyethylene Glycol 3350 17 Gm Packet PO DAILY PRN PRN Constipation Sodium Chloride 0 ml 11/07/23 20:00 11/09/23 09:55 Normal Saline Flush 10 Ml Syr IVP 20 ml BID [facility] Administration Sucralfate 1 gm 11/07/23 16:30 11/09/23 11:13 Sucralfate 1 Gm Tab PO Not Given AC & HS [facility] PFSH Active Problems Active Problems: Problem Status Onset Code DNR (do not resuscitate) Z66 Palliative care patient Z51.5 ACP (advance care planning) Z71.89 Malnutrition E46 Failure to thrive in adult R62.7 Discharge planning issues Z02.9 DVT prophylaxis Z29.9 Dysphagia R13.10 Acute bronchitis J20.9 Right rotator cuff tear M75.101 Tongue lesion K14.8 Infection of skin and subcutaneous tissue L08.9 Oral candidiasis B37.0 Anemia associated with acute blood loss D62 Upper GI bleeding K92.2 PUD (peptic ulcer disease) K27.9 Tobacco dependence F17.200 Alcoholism F10.20 Sebaceous cyst L72.3 Medical History Medical History Oral cancer Alcoholic cirrhosis Head and neck cancer Chronic hepatitis Alcohol abuse Tobacco dependency Lipoma of back Surgical History Surgical History Gastroscopy (04/22/15) Tobacco Smoking/Tobacco Use Status: Current every day Tobacco Type: cigarettes Smoking packs per day: 1 Smoking cigarettes per day: 20 Years smoked: 40 Alcohol Alcohol Intake: never Substance Use Substance use: Never Vital Signs and Lab Results Vital Signs Most Recent Vital Signs in EMR: Most Recent Vital Signs Temp Pulse Resp BP Pulse Ox 35.9 C L 67 17 120/67 99 11/09/23 10:59 11/09/23 10:59 11/09/23 10:59 11/09/23 10:59 11/09/23 10:59 Lab Results 11/08/23 06:05 11/08/23 06:05 Blood Type / Crossmatch: No Data to Display Complete Blood Count: White Blood Count 6.29 10^3/uL (4.4-10.8) 11/08/23 06:05 Red Blood Count 4.62 10^6/uL (4.36-5.78) 11/08/23 06:05 Hemoglobin 11.6 g/dL (13.5-17.5) L 11/08/23 06:05 Hematocrit 37.1 % (40.0-50.0) L 11/08/23 06:05 Platelet Count 246 10^3/uL (130-400) 11/08/23 06:05 Complete Metabolic Panel: Sodium 140 mmol/L (136-145) 11/08/23 06:05 Potassium 3.8 mmol/L (3.5-5.1) 11/08/23 06:05 Chloride 104 mmol/L (98-107) 11/08/23 06:05 Carbon Dioxide 23.2 mmol/L (21.0-32.0) 11/08/23 06:05 BUN 18 mg/dL (7-18) 11/08/23 06:05 Creatinine 0.9 mg/dL (0.70-1.30) 11/08/23 06:05 Est GFR (CKD-EPI 2020) 97.78 (mL/min/1.73m2) 11/08/23 06:05 Magnesium 2.1 mg/dL (1.8-2.4) 11/08/23 06:05 Calcium 9.4 mg/dL (8.5-10.1) 11/08/23 06:05 Albumin 2.4 g/dL (3.4-5.0) L 11/07/23 12:00 Glucose 143 mg/dL (74-106) H 11/08/23 06:05 Liver Function Panel: Alanine Aminotransferase (ALT/SGPT) 11 U/L (16-63) L 11/07/23 12:00 Aspartate Amino Transf (AST/SGOT) 13 U/L (15-37) L 11/07/23 12:00 Coagulation Panel: No Data to Display Cardiac Panel: No Data to Display Arterial Blood Gas: No Data to Display Venous Blood Gas: No Data to Display Pancreas Panel: No Data to Display Thyroid Panel: Thyroid Stimulating Hormone (TSH) 3.78 uIU/mL (0.36-3.74) H 11/08/23 06:05 Infectious Disease: Coronavirus (COVID-19)(PCR) Negative (Negative) 11/07/23 13:45 Coronavirus 2019 Source Nasopharynx 11/07/23 13:45 Influenza Virus Type A (PCR) Negative (Negative) 11/07/23 13:45 Influenza Virus Type B (PCR) Negative (Negative) 11/07/23 13:45 Respiratory Syncytial Virus (PCR) Negative (Negative) 11/07/23 13:45 Blood Cultures: No Data to Display Toxicology Panel: No Data to Display Imaging and Studies Imaging and Studies Study information below may be from another EMR and interpreted by another provider. Please see original notes in EMR for more complete details. EKG Summary: EKG PATIENT NAME: Vin Lopes UNIT #: [id number] ORDERING PROVIDER: Charlene Martinez M.D. PRIMARY CARE PROVIDER: JOSE RAUL COLIN NP DATE/TIME OF SERVICE: 11/07/23 1212 : 1965 PERFORMING LOCATION: [place] APPROVED REPORT Exam: Resting ECG Reason for Exam: COUGH Patient Location: E HR:82 bpm ECG Measurements Heart Rate 82 AXIS KS 121 P 69 QRSd 76 QRS 77 QT 352 T76 QTc 411 Conclusion Sinus rhythm. 82 normal axis no stemi <Electronically signed by Charlene Martinez M.D. in [place]> E-Sign Date: 11/07/23 E-Sign Time: 1357 ADDENDUM APPROVED REPORT Exam: Resting ECG Reason for Exam: COUGH Patient Location: E HR:82 bpm ECG Measurements Heart Rate 82 AXIS KS 121 P 69 QRSd 76 QRS 77 QT 352 T76 QTc 411 Conclusion Sinus rhythm. 82 normal axis no stemi I have reviewed and I agree with the emergency room physician's ECG interpretation. Anesthesia Assessment and Plan Anesthesia History Personal History: No History of Anesthesia Complications Family History: No Family History of Anesthesia Complications Exercise Tolerance Exercise Tolerance: Metabolic Equivalents<4 Pertinent Negatives Pertinent Negatives: No Symptoms of GERD, No Major Cardiovascular Symptoms or Complaints, No Major Pulmonary Symptoms or Complaints and No History of CVA/TIA Cardiac & Pulmonary Exam Cardiac Exam: Normal S1/S2 Heart Sounds Pulmonary Exam: Clear Bilateral Breath Sounds Implantable Cardiac Device Does patient have a Pacemaker or an ICD?: No Airway Exam Known Difficult Airway: No Previous Airway Comments:: past neck dissection with chemo and partial glossectomy Mallampati Class: 2 Mouth Opening: Normal (> 3cm) Thyromental Distance: Greater than 3 cm Neck Range of Motion: Full ROM Neck Circumference: Normal Teeth Condition: Edentulous ASA Classification ASA Score: ASA 4 Emergency Case?: No NPO Status NPO Status: NPO Clears >2 hours, Solids >8 hours Anesthesia Plan Resuscitation Status: DNR Fully Suspended During Perioperative Period Anesthesia Technique: General Anesthesia Airway Planned: Endotracheal Tube Monitors Used: Standard Monitors
[2023-11-09] MEDS: Lactated Ringers 1,000 ML 30 ML IV (13:40)
--- NOTE | 2023-11-09 14:20 | W.PM.OP ---
Date of service: 11/09/23 Time of Service: 14:20 Operative Note Operative Note DATE OF PROCEDURE: 11/09/23 PRE-OP DIAGNOSIS: dysphagia, failure to thrive PROCEDURE: aborted upper endoscopy with PEG tube placement SURGEON: Sheron Pastrana ANESTHESIA TYPE: MAC Refer to Anesthesia Record Patient's condition: stable Findings: Very tight strictured down opening to esophagus that would not allow safe passage of the upper endoscopy Procedure Description: Patient was brought to the operating room where he was placed on operating table in supine position. After general endotracheal anesthesia was administered by department of anesthesia a timeout was performed to confirm the site of surgery. Bite-block was placed in the oral os. The upper endoscopy was inserted into the oral os. The false vocal folds with the endotracheal tube was visualized. The opening of the esophagus was visualized. It was noted that there was resistance met with attempt to pass the upper endoscopy. The upper endoscopy was withdrawn. the patient was repositioned with less flexion in his neck. Another attempt was made to pass the endoscopy however it would not pass into the lumenof the esophagus. we did not push against resistance. A 3.8 mm Glidocope was inserted into the oral os. Under visualization the esophagus was easily intubated without resistance. It was then noted that the opening to the esophagus was very small and would not allow passage of the gastroscope. The glidoscope was then removed under direct visualization. The procedure was aborted. The patient was informed in recovery. He will need open gastrostomy tube placement if he choses to pursue a feeding tube. Will discuss with oncoming surgeon.
--- NOTE | 2023-11-09 14:48 | W.ANESPOSTOP ---
Postoperative Evaluation Date, Time and Location Date Performed: 11/09/23 Time Performed: 14:49 Patient Location: PACU Vital Signs Most Recent Imported Vital Signs: Most Recent Vital Signs Temp Pulse Resp BP Pulse Ox 36.5 C 64 19 111/66 100 11/09/23 14:29 11/09/23 14:39 11/09/23 14:39 11/09/23 14:39 11/09/23 14:39 Pain Score Most Recent Pain Score: Most Recent Pain Score Pain Level 0 11/09/23 14:39 Assessment Mental Status: Awake (Alert & Oriented to Patient Baseline) Airway and Respiratory Function: Patent airway with normal (patient baseline) respiratory exam Cardiovascular Function: Hemodynamically Stable Hydration Status: Adequately Hydrated Nausea & Vomiting: No Nausea or Vomiting Pain: Pt. Denies Any Pain Peripheral Nerve Block: Patient did not receive a nerve block
[2023-11-09] MEDS: Sucralfate 1 GM TAB PO ×2 (17:30→20:27)
[2023-11-09] MEDS: CEFEPIME 2 GM in Normal Saline 100 ML IVPB (17:30)
--- NOTE | 2023-11-09 17:39 | W.PM.PROGNOT ---
Date of Service Date of service: 11/09/23 Time of Service: 17:39 Assessment and Plan Assessment and plan (1) Acute bronchitis: Status: Acute Assessment and plan: afebrile, no hypoxemia. Antibiotics changed to cefepime and doxycycline. CT scan shows worsening infiltrates although clinically he looks better. If he remains afebrile and not hypoxemic and we do not proceed with gastrotomy tube I think he can be discharged home on oral antibiotics with outpatient follow-up with either surgical services or GI services for placement of a feeding tube. Qualifiers: Bronchitis organism: unspecified organism Qualified Code(s): J20.9 - Acute bronchitis, unspecified (2) Dysphagia: Status: Acute Assessment and plan: MOLECULAR GENETICIST consult noted. Failed attempt at EGD today secondary to narrowing of esophageal entrance. General surgeon to discuss with anesthesia whether or not he is a feasible candidate for open gastrotomy tube here at [facility]. Qualifiers: Dysphagia type: oropharyngeal phase Qualified Code(s): R13.12 - Dysphagia, oropharyngeal phase (3) Failure to thrive in adult: Status: Acute Assessment and plan: C/s palliative care C/s nutrition (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 Now with dysphagia and severe weight loss. C/s speech therapy and palliative care. (5) Alcoholism: Status: Resolved Assessment and plan: The patient no longer drinks. (6) Malnutrition: Status: Acute Assessment and plan: BMI 13.7. C/s nutrition Qualifiers: Malnutrition type: protein-calorie malnutrition Protein-calorie malnutrition severity: severe Qualified Code(s): E43 - Unspecified severe protein-calorie malnutrition (7) Alcoholic cirrhosis: Assessment and plan: HOld spironolactone as clinically dehydrated. Low sodium diet (8) Oral candidiasis: Status: Acute Assessment and plan: IV fluconazole. (9) DVT prophylaxis: Status: Acute Assessment and plan: Enoxaparin SC (10) Discharge planning issues: Status: Acute Assessment and plan: DNR/DNI Subjective Subjective Interval history since last seen: Vin has no acute complaints. Cough is minimal with minimal sputum production. He is not acutely dyspneic and not requiring supplemental oxygen. Dr. Pastrana, general surgeon, attempted to do EGD today but due to severe upper esophageal strictures was unable to pass the scope into the entrance of his esophagus. Dr. Pastrana indicated she was signed the patient out to the neck surgeon who then discussed with anesthesia feasibility of doing an open gastrotomy tube. If not patient will need referral to [facility] [place]. Exam Narrative Exam Narrative: Robert is alert and oriented sitting up watching TV no acute distress Chest is clear to auscultation with some prolonged expiratory phases no rhonchi Heart regular rate and rhythm Abdomen soft and nontender Objective Last Vital Signs Temp 36.6 C 11/09/23 14:59 Pulse 60 11/09/23 14:59 Resp 17 11/09/23 14:59 BP 122/84 11/09/23 14:59 Pulse Ox 98 11/09/23 14:59 Laboratory Results - last 24 hr 11/07/23 16:30 Urine Legionella Ag Negative Time Spent with Patient Time Spent with Patient: 25-34 minutes Time was spent: preparing to see the patient(eg.review tests), ordering medications,tests, procedures, referring, communicating with other health child care center administrator ( Discussed with Dr. Pastrana), indepentently interpreting results, counseling the patient and care coordination
[2023-11-09] MEDS: Enoxaparin 40 MG/0.4 ML SYR SC (18:52)
[2023-11-09] MEDS: Pantoprazole 40 MG TABCR PO (20:26)
[2023-11-09] MEDS: Mirtazapine 15 MG TAB PO (20:26)
[2023-11-09] MEDS: Magnesium Oxide 400 MG TAB PO (20:27)
[2023-11-09] MEDS: FLUCONAZOLE 200 MG/100 ML BAG 100 MG IVPB (21:44)
[2023-11-10 00:06] LABS: Streptococcus Pneumoniae Ag, U Negative (Negative)
[2023-11-10] MEDS: CEFEPIME 2 GM in Normal Saline 100 ML IVPB ×2 (03:41→16:08)
[2023-11-10 04:14] VITALS: BP 129/71; PULSE 61; RESP 20; TEMP 35.2; O2SAT 99
[2023-11-10] MEDS: Levothyroxine 100 MCG TAB PO (05:40)
[2023-11-10 06:54] LABS: HCT 37.4 % (40.0-50.0); HGB 11.8 g/dL (13.5-17.5); MCH 25.2 pg (27.0-33.0); MCHC 31.6 % (32.0-36.0); MCV 80 fL (80-95); MPV 10.1 fL (8.0-11.0); Platelet Count 233 10^3/uL (130-400); RBC 4.69 10^6/uL (4.36-5.78); RDW 14.4 % (11.8-14.1); RDW-SD 41.4 fL; WBC 6.14 10^3/uL (4.4-10.8)
[2023-11-10 07:24] VITALS: BP 150/85; PULSE 68; RESP 18; TEMP 37; O2SAT 99
[2023-11-10] MEDS: DOXYCYCLINE 100 MG in Normal Saline 100 ML IVPB ×2 (08:01→19:25)
[2023-11-10] MEDS: methylPREDNISolone SUCC 40 MG VIAL IVP (08:01)
[2023-11-10] MEDS: Normal Saline Flush 10 ML SYR IVP ×2 (08:03→19:24)
[2023-11-10] MEDS: Pantoprazole 40 MG TABCR PO ×2 (08:04→19:25)
[2023-11-10] MEDS: Sucralfate 1 GM TAB PO ×4 (08:04→21:22)
[2023-11-10] MEDS: Magnesium Oxide 400 MG TAB PO ×2 (08:05→19:25)
--- NOTE | 2023-11-10 14:32 | W.PM.PROGNOT ---
Date of Service Date of service: 11/10/23 Time of Service: 14:32 Assessment and Plan Assessment and plan (1) Malnutrition: Status: Acute Assessment and plan: 58-year-old man with acquired dysphagia that is severe and preventing him from being able to eat and having any reasonable nutritional intake. On signout, the other endoscopist encountered an esophagus that was too tight to traverse with the scope. He might benefit from pediatric?sized instruments but I do not believe we have a pediatric endoscope. In any event, I do not think a PEG tube would work because I do not think it would work to pull the PEG tube down through such a scarred esophagus with such a small lumen. Endoscopic dilation might be a possibility for him but would likely be very short?lived and would require serial dilation on a regular basis would be my guess. Again, a pediatric endoscope would be needed to initiate this. I recommend proceeding with a minimally invasive (laparoscopic) G-tube placement. I think he definitely needs enteric nutrition and it is becoming critical. In fact, he will need to be carefully monitored for re-feeding syndrome after the G-tube is placed. I discussed all this with the patient who wants to proceed. I have added him onto the schedule for tomorrow. Qualifiers: Malnutrition type: protein-calorie malnutrition Protein-calorie malnutrition severity: severe Qualified Code(s): E43 - Unspecified severe protein-calorie malnutrition Subjective Subjective Interval history since last seen: Unable to pass the EGD scope during the procedure attempt yesterday. Thus no PEG tube was placed. At the bedside the patient says he has given up on the idea of being able to eat anything ever again. He really wants to get the feeding tube so he does not feel hungry and can gain some weight back. Exam Narrative Exam Narrative: General: Nontoxic, comfortable and interactive but cachectic and appears weak and malnourished Neuro: Alert and oriented x 3 - cranial nerve palsies visible Neck: Severely distorted anatomy with a chronic, scarred appearance. Psych: Good mood and affect, good insight and understanding Chest: Nonlabored breathing Heart: Regular Abdomen: Soft, nondistended and nontender. Well?healed McBurney appendectomy scar Objective Last Vital Signs Temp 98.6 F 11/10/23 07:24 Pulse 68 11/10/23 07:24 Resp 18 11/10/23 07:24 BP 150/85 H 11/10/23 07:24 Pulse Ox 99 11/10/23 07:24 Laboratory Results - last 24 hr 11/07/23 11/10/23 16:30 05:58 WBC 6.14 RBC 4.69 Hgb 11.8 L Hct 37.4 L MCV 80 MCH 25.2 L MCHC 31.6 L RDW 14.4 H Plt Count 233 MPV 10.1 Ur Strep pneumoniae Ag Negative Time Spent with Patient Time Spent with Patient: 25-34 minutes Time was spent: preparing to see the patient(eg.review tests), indepentently interpreting results, counseling the patient and care coordination
--- NOTE | 2023-11-10 14:57 | PHA.REVIEW2 ---
Pharmacy Admission Review Admission Clinical Review Admission Pharmacy Review: DNR (do not resuscitate) (Acute) Palliative care patient (Acute) ACP (advance care planning) (Acute) Malnutrition (Acute) Failure to thrive in adult (Acute) Discharge planning issues (Acute) DVT prophylaxis (Acute) Dysphagia (Acute) Acute bronchitis (Acute) Oral candidiasis (Acute) No Known Allergies Allergy (Verified 11/07/23 11:52) Resuscitation Status DNR/DNI Height 5 ft 8 in Weight 41.504 kg Comments Comments/Follow Ups: Per progress note patient needs G-tube placed and enteric nutrition Pharmacy Admission Review Renal Dosing Renal Dosing: BUN 18 mg/dL (7-18) 11/08/23 06:05 Creatinine 0.9 mg/dL (0.70-1.30) 11/08/23 06:05 Medications needing adjustments: Reviewed (CrCl 46.12 mL/min) Anticoagulation Anticoagulation: Hgb 11.8 g/dL (13.5-17.5) L 11/10/23 05:58 Hct 37.4 % (40.0-50.0) L 11/10/23 05:58 Plt Count 233 10^3/uL (130-400) 11/10/23 05:58 Creatinine 0.9 mg/dL (0.70-1.30) 11/08/23 06:05 DVT Prophylaxis: Reviewed Medications: Enoxaparin (40mg q24h) Relevant Labs Relevant Labs: Sodium 140 mmol/L (136-145) 11/08/23 06:05 Potassium 3.8 mmol/L (3.5-5.1) 11/08/23 06:05 Chloride 104 mmol/L (98-107) 11/08/23 06:05 Magnesium 2.1 mg/dL (1.8-2.4) 11/08/23 06:05 Electrolytes, C-Reactive P, ESR: Reviewed (Hgb 11.8) Cardiac Review BP, HR, EF%: Reviewed (HR WNL, BP 150/85) QTc Review QTc: Reviewed (411 from 11/07/23) IV to PO Switch IV Medications: Reviewed Home Meds Home Med List reviewed: Reviewed Relevent Home Meds Not ordered & why?: Spironolactone (on hold per H+P) Current Meds Current Medication Order Review: Reviewed Pharmacy Antibiotic Review Pharmacy Antibiotic Activity: C/S review and Reviewed, no change Comments: Continues on cefepime 2g q12h, doxycycline 100mg q12h and fluconazole 200mg q24h day 3. Blood cultures showing no growth at 48 hours, sputum culture growing normal connie. Comments Comments/Follow Ups: Per progress note patient needs G-tube placed and enteric nutrition
--- NOTE | 2023-11-10 15:40 | W.SPSTP ---
Date of service: 11/10/23 Time of Service: 15:15 Subjective Vin was contacted at bedside this afternoon for PO trials and cont'd education. He continues to report coughing constantly with food and drink. He also reports that he has difficulty getting any liquids down with small sips, and feels that if he has larger consecutive sips, he is able to get more down, whereas coughing is equal regardless of sip size. 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 This stricture is likely contributing to his dysphagia exacerbation and increasing s/sx aspiration as well as weight loss. This date, patient continues to demonstrate consistent s/sx aspiration across liquid and puree textures (thin liquid x3 oz and puree x5 bites). Although there are infiltrates in the lungs, states that he does not show values or sx PNA at this time, no difficulty breathing. He will be NPO shortly in preparation for surgery to do laporascopic G tube placement tomorrow morning. Continue to suggest MBSS prior to d/c if possible, to visualize functional deficits of stricture on swallowing and to determine degree/frequency of aspiration and inform if/what patient may take PO to supplement tube feeds. Once TF are established, NETWORK DEVELOPMENT COORDINATOR to initiate supplemental/therapeutic PO only recommendations until MBSS can be completed. Pt states he has an appt [place] [facility] [place]. Suggest he also follow up with Sunitha Aguiar RD at [facility] once discharged to help manage and monitor tube feeds. FURTHER NETWORK DEVELOPMENT COORDINATOR SERVICES: Patient to be followed while on unit. Upon Discharge, outpatient consult requested vs home health NETWORK DEVELOPMENT COORDINATOR services likely beneficial Diet Recommendations: (Offer only therapeutic trials per NETWORK DEVELOPMENT COORDINATOR recommendations once tube feeds are initiated, and pending MBSS results). SOLIDS: 4-Pureed Solids LIQUIDS: 0-Thin Liquids (Straw required due to labial weakness) MEDICATIONS: Whole with 0-Thin Liquids, Please offer 1-2 bites of applesauce following pills. This is patient's preference. He is adamant he does not want pills crushed/cut as he feels this is more challenging for him. HOB bolt upright 90 degrees for all PO Maintain upright positioning 45-60 minutes after meals Complete oral care before/after meals. Patient requires oral care after meals to clear oral residue (swab with oral rinse) Encourage physical mobility as tolerated. Level of Assistance/Supervision: Intermittent supervision for all PO intake PLAN: Frequency: 2-3x/week for 1-2 weeks Goals: Architecture Department Chair Goals: Patient will remain free from aspiration-related illness, malnutrition, and dehydration. Short Term Goals: Patient will tolerate Puree Diet and Thin liquids without overt s/s aspiration across 2/2 visits. Time spent: 15:15 - 15:35 - 20m
[2023-11-10 16:19] VITALS: BP 134/81; PULSE 68; RESP 20; TEMP 36.1; O2SAT 97
--- NOTE | 2023-11-10 16:39 | W.PM.PROGNOT ---
Date of Service Date of service: 11/10/23 Time of Service: 16:39 Assessment and Plan Assessment and plan (1) Aspiration pneumonia: Status: Acute Assessment and plan: initial CXR did not show the infiltrates but CT chest done 11/08 demonstrated bilateral basilar infiltrates most prominent in RLL and RML but also LLL, clinically he is improving on cefepime (day #2, begun 11/09) doxycycline (d#3, begun 11/08), however did have one day of Unasyn (11/07) continue bronchodilators, antibiotics (treat for 5 day total), he is doing well and not requiring supplemental oxygen but remains high risk of aspiration Qualifiers: Aspiration pneumonia type: due to gastric secretions Laterality: bilateral Lung location: lower lobe of lung Qualified Code(s): J69.0 - Pneumonitis due to inhalation of food and vomit (2) Dysphagia: Status: Acute Assessment and plan: failed EGD yesterday, NPO tonight for laparoscopic gastrostomy tube tomorrow Qualifiers: Dysphagia type: oropharyngeal phase Qualified Code(s): R13.12 - Dysphagia, oropharyngeal phase (3) Failure to thrive in adult: Status: Acute Assessment and plan: C/s palliative care C/s nutrition (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 Now with dysphagia and severe weight loss. C/s speech therapy and palliative care. (5) Alcoholism: Status: Resolved Assessment and plan: The patient no longer drinks. (6) Malnutrition: Status: Acute Assessment and plan: BMI 13.7. C/s nutrition Qualifiers: Malnutrition type: protein-calorie malnutrition Protein-calorie malnutrition severity: severe Qualified Code(s): E43 - Unspecified severe protein-calorie malnutrition (7) Alcoholic cirrhosis: Assessment and plan: HOld spironolactone as clinically dehydrated. Low sodium diet (8) Oral candidiasis: Status: Acute Assessment and plan: IV fluconazole (d#3), treat for 10 to 14 days, once g tube is in place then will switch over to enteral form (9) DVT prophylaxis: Status: Acute Assessment and plan: Enoxaparin SC (10) Discharge planning issues: Status: Acute Assessment and plan: DNR/DNI when gastrostomy tube is in place and functional then can plan for dc home w/ HH services Subjective Subjective Interval history since last seen: Vin offers not acute complaints. He is scheduled for laparoscopy w/ placement of gastrostomy tube since he could not have PEG done via EGD d/t esophageal stricture. Exam Narrative Exam Narrative: Robert is alert and oriented sitting up watching TV no acute distress Chest is clear to auscultation with some prolonged expiratory phases no rhonchi Heart regular rate and rhythm Abdomen soft and nontender Objective Last Vital Signs Temp 36.1 C L 11/10/23 16:19 Pulse 68 11/10/23 16:19 Resp 20 11/10/23 16:19 BP 134/81 11/10/23 16:19 Pulse Ox 97 11/10/23 16:19 Laboratory Results - last 24 hr 11/07/23 11/10/23 16:30 05:58 WBC 6.14 RBC 4.69 Hgb 11.8 L Hct 37.4 L MCV 80 MCH 25.2 L MCHC 31.6 L RDW 14.4 H Plt Count 233 MPV 10.1 Ur Strep pneumoniae Ag Negative Time Spent with Patient Time Spent with Patient: 25-34 minutes Time was spent: preparing to see the patient(eg.review tests), ordering medications,tests, procedures, referring, communicating with other health career education teacher, indepentently interpreting results, counseling the patient and care coordination
--- NOTE | 2023-11-10 17:13 | CMPROGNOTE_ITS ---
Date of service: 11/10/23 Time of Service: 17:14 Care Management Progress Note Progress Note Text Progress Note Text: S/O: Per surgeon: I recommend proceeding with a minimally invasive (laparoscopic) G-tube placement. I think he definitely needs enteric nutrition and it is becoming critical. In fact, he will need to be carefully monitored for re-feeding syndrome after the G-tube is placed. I discussed all this with the patient who wants to proceed. I have added him onto the schedule for tomorrow. CM following. A: Vin is a 58 year old male admitted to [facility] on 11/07/23 with acute bronchitis, dysphagia, FTT. P: Anticipate Vin will return home once medically cleared. He may benefit from services; CM will review this prior to discharge. His sister will drive him home via private vehicle. He will follow up with his PCP and discharge plan of yobani modi. CM will continue to follow. SDOH(Care Management) Screening Will the Patient Participate in the Screening?: Unable to obtain Do you worry about having a steady place to live?: yes In the past 12 months, have you had to go without electric, gas, oil or water in your home?: no Have you or anyone in your house had to go without enough food to eat?: no Has lack of transportation kept you from medical appointments or from doing things needed for daily living?: no Has anyone in your support network made you feel unsafe for any reason?: yes Health Related Social Needs Health related social needs: housing instability, housed, with risk of homelessness(Z59.811) and problem related to primary support group(Z63.9)
[2023-11-10] MEDS: Enoxaparin 40 MG/0.4 ML SYR SC (18:13)
[2023-11-10 19:21] VITALS: BP 134/77; PULSE 65; RESP 17; TEMP 36.3; O2SAT 98
[2023-11-10] MEDS: FLUCONAZOLE 200 MG/100 ML BAG 100 MG IVPB (21:23)
[2023-11-10] MEDS: Mirtazapine 15 MG TAB PO (21:23)
[2023-11-10 22:52] VITALS: BP 160/84; PULSE 62; RESP 16; TEMP 35.5; O2SAT 98
[2023-11-11] VITALS (17 sets, daily range): BP systolic 125–174; BP diastolic 67–89; PULSE 54–67; RESP 11–24; TEMP 35–36.5; O2SAT 94–100; BMI 13.8
[2023-11-11] MEDS: CEFEPIME 2 GM in Normal Saline 100 ML IVPB ×2 (03:26→17:33)
[2023-11-11] MEDS: Levothyroxine 100 MCG TAB PO (06:40)
[2023-11-11] MEDS: Pantoprazole 40 MG TABCR PO ×2 (06:40→19:27)
[2023-11-11] MEDS: Sucralfate 1 GM TAB PO ×2 (06:40→22:27)
[2023-11-11] MEDS: Normal Saline Flush 10 ML SYR IVP ×2 (08:01→19:26)
[2023-11-11] MEDS: methylPREDNISolone SUCC 40 MG VIAL IVP (08:01)
[2023-11-11] MEDS: Magnesium Oxide 400 MG TAB PO ×2 (08:01→19:27)
[2023-11-11] MEDS: DOXYCYCLINE 100 MG in Normal Saline 100 ML IVPB ×2 (08:02→19:26)
--- NOTE | 2023-11-11 08:11 | W.PM.PROGNOT ---
Date of Service Date of service: 11/11/23 Time of Service: 10:12 Assessment and Plan Assessment and plan (1) Malnutrition: Status: Acute Assessment and plan: 58-year-old man who cannot swallow because of head and neck radiation which has caused a very narrow esophagus. He is completely malnourished and cachectic. He needs enteral feeding. His personal goals are to have the feeling of hunger go away which she says is his biggest complaint. We talked about feeding tubes and he understands how they are used and what they are used for and how they function. We talked about the risks which include tube dislodgment, infection as well as the need for further procedures. He is excited about having the procedure done and wishes to proceed. I had a direct discussion with the hospitalist this morning about his risk for refeeding syndrome. Refeeding needs to be introduced slowly and carefully in this particular case. Overall plan: Laparoscopic gastrostomy tube placement Qualifiers: Malnutrition type: protein-calorie malnutrition Protein-calorie malnutrition severity: severe Qualified Code(s): E43 - Unspecified severe protein-calorie malnutrition Subjective Subjective Interval history since last seen: No complaints or events overnight. He has no questions about the G-tube being placed later today. He is ready to have it done whenever we can do it. Exam Narrative Exam Narrative: General: Nontoxic, comfortable, interactive and resting comfortably. Neuro: Alert and oriented Psych: Good mood and affect, good insight and understanding into his condition Objective Last Vital Signs Temp 97.3 F L 11/11/23 07:43 Pulse 58 L 11/11/23 07:43 Resp 17 11/11/23 07:43 BP 146/79 H 11/11/23 07:43 Pulse Ox 98 11/11/23 07:43 Laboratory Results - last 24 hr 11/07/23 16:30 Ur Strep pneumoniae Ag Negative Time Spent with Patient Time Spent with Patient: <25 minutes Time was spent: preparing to see the patient(eg.review tests), ordering medications,tests, procedures, referring, communicating with other health senior care specialist, indepentently interpreting results, counseling the patient and care coordination
--- NOTE | 2023-11-11 09:45 | PDOC.CMSAFE ---
Care Management Safety Plan Status Status: Voluntary Reason for Wait Reason for Wait: Medical Clearance Safety Plan Safety Plan: VOLUNTARY FOR INPATIENT PSYCHIATRIC STABILIZATION.? Patient is appropriate in all interactions since arriving at [facility]; Pt has demonstrated appropriate coping and communication skills, has articulated his or her needs and concerns and is fully engaged during staff interactions. Safety plan has been established with patient, and care team, to adhere to patient goals, identify restrictions based on behavioral status, address nutrition, and determine allowed personal belongings, tools for hygiene and personal care. Determine level of activity including ambulation, level of supervision, visitors, and determine privileges based on behaviors and level of engagement by pt. SAFETY PLAN: 1. Will remain on suicide precautions, in paper clothes or hospital gown. 2. Will remain in room under direct supervision of one-on-one staff at all times provided by [employer]; [place], [employer] sports management professor. 3. May have paper cups, plates, finger foods as well as a metal spoon with which to eat meals. 4. Follow [facility] Management of the Admitted Behavioral Health Patient policy. 5. Comfort bath system, shower permitted with escort at RN discretion. 6. Personal belongings-soft items permitted at RN discretion. 7. Visitors-per [facility] policy, restrictions per RN discretion. 8. Activities: soft cart items approved per RN discretion. 9.? Bathroom privileges available in room without limitation. 10. Phone: permitted patient's own cell phone, at RN discretion. Due to VOLUNTARY status, if patient wishes to leave [facility], staff will contact [facility] Crisis Screener ([phone]) and On-Call Components Engineer ([phone]) as soon as possible. In the event of elopement, notify [facility] Police ([phone]). Patient is currently voluntarily at [facility] and seeking inpatient admission when a bed becomes available. [facility] Frontline Consumer Marketing Analyst will continue seeking placement. Please contact the Cylindrical Mixer Components Engineer ([phone]) and [facility] Consumer Marketing Analyst ([phone]) for any needed changes in the Safety Plan. Safety plan has been provided to interdepartmental care team.
--- NOTE | 2023-11-11 12:34 | PDOC.CMPRO ---
Date of service: 11/11/23 Time of Service: 12:34 Care Management Progress Note Progress Note Text Progress Note Text: S/O: G-tube placement scheduled for today. CM met with Jennifer, Vin's sister, confirmed HIPPA and concerns central to feeding, and discharge planning. CM also discussed planning with Jaycob in Nutrition who reported he would complete feeding recommendations; CM notified Surgeon of need for orders to enable coordination support for home enteral nutrition. CM continues to follow. A: Vin is a 58 year old male admitted to [facility] on 11/07/23 with acute bronchitis, dysphagia, FTT. P: Anticipate Vin will return home with his sister once medically cleared. Anticipate new orders for enteral nutrition and [facility] RN will be coordinated prior to discharge; G-Tube placed today. CM will continue to follow. SDOH(Care Management) Screening Will the Patient Participate in the Screening?: Unable to obtain Do you worry about having a steady place to live?: yes In the past 12 months, have you had to go without electric, gas, oil or water in your home?: no Have you or anyone in your house had to go without enough food to eat?: no Has lack of transportation kept you from medical appointments or from doing things needed for daily living?: no Has anyone in your support network made you feel unsafe for any reason?: yes Health Related Social Needs Health related social needs: housing instability, housed, with risk of homelessness(Z59.811) and problem related to primary support group(Z63.9)
--- NOTE | 2023-11-11 13:19 | TELEFU_ITS ---
Date of service: 11/11/23 Time of Service: 13:20 Nutrition Note NOTE: Pt is 58yo male experiencing significant protein-calorie malnutrition due to swallowing difficulties secondary to head and neck radiation and narrowing of the esophagus. Pt is NPO this evening in preparation for G-tube placement tomorrow. Pt requires enteral feedings to ensure adequate nutrition intake. Current Dry weight:41.5kg Height:68/172.72cm BMI:13.9kg/m2 [place] body weight:70kg Initial goal for enteral feeding would be to achieve 25kcal/kg of current dry weight - 1038kcals, and 1.5g/kg of protein - 62g. After this is achieved and tolerated for 3 days, while monitored for refeeding syndrom, increased rate can be considered for goal of steady wt gain. Would suggest continuous enteral feeding as it would be considered a more tolerable approach and would improve protein balance through sustained sup pression of protein catabolism. Recommendation of 2.0 formula such as Nutren 2.0. Recommend initial goal rate for first 3 days of feeding of 22mL/hour x24 hours to provide 1056kcals, 44g protein and 365mL fluid. One packet of Active liquid protein concentrate can be administered (see package directions for administration in tube feeds) daily for an extra 15 grams of protein to meet his current protein needs. Start at 10 mL per hour and increase by 5mL every 4 hours until goal rate achieved, and tolerated before adding additional protein concentrate. Water flushes administered ad dioni every 4 hours and with any medications administered via gtube. After 3 days of tolerated feedings, the rate should be increased slowly to provide additional kcals and protein. Would recommend home health services temporarily to help monitor for refeeding as well as educate any care takers on administration and cleaning/flushing the g-tube. Time Spent in Nutritional Counseling and Treatment: 0
--- NOTE | 2023-11-11 13:20 | W.PALPGNOTE ---
Date of service: 11/11/23 Time of Service: 13:20 Subjective Subjective Interval history since last seen: HCA: Services: Objective Last Vital Signs Temp 36.3 C L 11/11/23 07:43 Pulse 58 L 11/11/23 07:43 Resp 17 11/11/23 07:43 BP 146/79 H 11/11/23 07:43 Pulse Ox 98 11/11/23 07:43
--- NOTE | 2023-11-11 13:24 | ANES.PREOP_ITS ---
General Info Date of Service Date Performed: 11/11/23 Height: 5 ft 8 in Weight: 41.504 kg Body Mass Index (BMI): 13.8 Surgical Procedure: Operation Date: 11/09/23 13:40 Proposed Procedure Side Surgeon p Gastroscopy Sheron Pastrana DO s Peg Tube Insertion Sheron Pastrana DO Actual Procedure Side Surgeon p Gastroscopy & Possible Peg Tube Insertion Not Applicable Sheron Pastrana DO Pre-Op Diagnosis Post-Op Diagnosis Failure to Thrive, Dysphagia Failure to Thrive, Dysphagia Operation Date: 11/11/23 13:25 Proposed Procedure Side Surgeon p Exploratory Laparoscopy/Laparoscopic G-Tube Placement López Rogers MD Actual Procedure Side Surgeon p Exploratory Laparoscopy/Laparoscopic G-Tube Placement Not Applicable López Rogers MD Pre-Op Diagnosis Post-Op Diagnosis CAP vs Aspiration Pneumonitis Meds Allergies and Home Medications Allergies Allergy/AdvReac Type Severity Reaction Status Date / Time No Known Allergies Allergy Verified 11/07/23 11:52 Home Medication Medication Instructions Recorded acetaminophen 500 mg tablet (Mapap 1,000 mg (2 x 500 mg) PO Q8H PRN 09/17/15 Extra Strength) magnesium oxide 400 mg (241.3 mg 400 mg PO BID #60 tabs 09/17/15 magnesium) tablet (MagOx) pantoprazole 40 mg tablet,delayed 40 mg PO BID@07,1999 ##60 09/17/15 release spironolactone 25 mg tablet 25 mg PO DAILY #30 tabs 09/17/15 chlorhexidine gluconate 0.12 % 15 ml PO .COMPLEX 11/07/23 mouthwash levothyroxine 100 mcg tablet 100 mcg PO ONCE 11/07/23 mirtazapine 15 mg disintegrating 15 mg translingual HS 11/10/23 tablet sucralfate 1 gram tablet 1 g PO QID 11/10/23 Current Visit Medications: Current Medications Generic Name Dose Route Start Last Admin Trade Name Freq PRN Reason Stop Dose Admin Acetaminophen 1,000 mg 11/07/23 16:02 Acetaminophen 500 Mg Tab PO Q8H PRN PRN Al Hydrox/Mg Hydrox/Simethicone 30 ml 11/07/23 16:02 Mylanta Suspension 30 Ml Cup PO Q2H PRN PRN Albuterol Sulfate 2.5 mg 11/07/23 16:02 Albuterol 2.5 Mg/3 Ml Inh Soln Vial UPD Q2H PRN PRN Albuterol/Ipratropium 3 ml 11/08/23 14:09 Albuterol/Ipratropium 3 Ml Upd Vial UPD Q6H PRN PRN Chlorhexidine Gluconate 15 ml 11/07/23 18:00 11/11/23 08:01 Chlorhexidine Gluconate 0.12% Mouthwash 118 Ml Btl MM 15 ml 5X/DAY DEXTER Administration Docusate Sodium 100 mg 11/07/23 16:02 Docusate Sodium 100 Mg Cap PO TID PRN PRN Enoxaparin Sodium 40 mg 11/07/23 18:00 11/10/23 18:13 Enoxaparin 40 Mg/0.4 Ml Syr SC 40 mg Q24H DEXTER Administration Doxycycline Hyclate 100 mg/ 100 mls @ 100 mls/hr 11/08/23 08:00 11/11/23 08:02 Sodium Chloride IVPB 100 mls/hr Q12H DEXTER Administration Fluconazole 200 mg in 100 mls @ 100 mls/hr 11/08/23 22:00 11/10/23 22:30 Diflucan/N. Saline 200 Mg/100 Ml IVPB Infused Q24H DEXTER Infusion Cefepime HCl 2 gm/ Sodium 100 mls @ 200 mls/hr 11/09/23 16:00 11/11/23 03:26 Chloride IVPB 200 mls/hr Q12H DEXTER Administration IV Miscellaneous Supplies 1 each 11/07/23 16:02 Iv Access IV [facility] Levothyroxine Sodium 100 mcg 11/09/23 06:00 11/11/23 06:40 Levothyroxine 100 Mcg Tab PO 100 mcg DAILY@0600 DEXTER Administration Magnesium Hydroxide 30 ml 11/07/23 16:02 Milk Of Magnesia 30 Ml Cup PO DAILY PRN PRN Magnesium Oxide 400 mg 11/07/23 20:00 11/11/23 08:01 Magnesium Oxide 400 Mg Tab PO 400 mg BID DEXTER Administration Methylprednisolone Sodium Succinate 40 mg 11/08/23 08:30 11/11/23 08:01 Methylprednisolone Succ 40 Mg Vial IVP 40 mg DAILY DEXTER Administration Miconazole Nitrate 0 gm 11/07/23 16:02 Miconazole 2% Topical Powder 85 Gm Btl TP BID PRN PRN Mirtazapine 15 mg 11/07/23 22:00 11/10/23 21:23 Mirtazapine 15 Mg Tab PO 15 mg HS DEXTER Administration Nicotine 7 mg 11/07/23 17:51 Nicotine 7 Mg/24 Hr Patch TD DAILY PRN PRN Pantoprazole Sodium 40 mg 11/07/23 20:00 11/11/23 06:40 Pantoprazole 40 Mg Tabcr PO 40 mg BID@0730,2000 DEXTER Administration Polyethylene Glycol 17 gm 11/07/23 16:02 Polyethylene Glycol 3350 17 Gm Packet PO DAILY PRN PRN Constipation Sodium Chloride 0 ml 11/07/23 20:00 11/11/23 08:01 Normal Saline Flush 10 Ml Syr IVP 10 ml BID DEXTER Administration Sodium Chloride 0 ml 11/10/23 23:27 Normal Saline Flush 10 Ml Syr IVP PRN PRN Sucralfate 1 gm 11/07/23 16:30 11/11/23 10:23 Sucralfate 1 Gm Tab PO Not Given AC & HS DEXTER PFSH Active Problems Active Problems: Problem Status Onset Code Aspiration pneumonia J69.0 DNR (do not resuscitate) Z66 Palliative care patient Z51.5 ACP (advance care planning) Z71.89 Malnutrition E46 Failure to thrive in adult R62.7 Discharge planning issues Z02.9 DVT prophylaxis Z29.9 Dysphagia R13.10 Acute bronchitis J20.9 Right rotator cuff tear M75.101 Tongue lesion K14.8 Infection of skin and subcutaneous tissue L08.9 Oral candidiasis B37.0 Anemia associated with acute blood loss D62 Upper GI bleeding K92.2 PUD (peptic ulcer disease) K27.9 Tobacco dependence F17.200 Alcoholism F10.20 Sebaceous cyst L72.3 Medical History Medical History Oral cancer Alcoholic cirrhosis Head and neck cancer Chronic hepatitis Alcohol abuse Tobacco dependency Lipoma of back Surgical History Surgical History Gastroscopy (04/22/15) Tobacco Smoking/Tobacco Use Status: Current every day Tobacco Type: cigarettes Smoking packs per day: 1 Smoking cigarettes per day: 20 Years smoked: 40 Alcohol Alcohol Intake: never Substance Use Substance use: Never Vital Signs and Lab Results Vital Signs Most Recent Vital Signs in EMR: Most Recent Vital Signs Temp Pulse Resp BP Pulse Ox 36.3 C L 58 L 17 146/79 H 98 11/11/23 07:43 11/11/23 07:43 11/11/23 07:43 11/11/23 07:43 11/11/23 07:43 Lab Results 11/10/23 05:58 11/08/23 06:05 Blood Type / Crossmatch: 2 No Data to Display Complete Blood Count: 2 White Blood Count 6.14 10^3/uL (4.4-10.8) 11/10/23 05:58 Red Blood Count 4.69 10^6/uL (4.36-5.78) 11/10/23 05:58 Hemoglobin 11.8 g/dL (13.5-17.5) L 11/10/23 05:58 Hematocrit 37.4 % (40.0-50.0) L 11/10/23 05:58 Platelet Count 233 10^3/uL (130-400) 11/10/23 05:58 Complete Metabolic Panel: 2 Sodium 140 mmol/L (136-145) 11/08/23 06:05 Potassium 3.8 mmol/L (3.5-5.1) 11/08/23 06:05 Chloride 104 mmol/L (98-107) 11/08/23 06:05 Carbon Dioxide 23.2 mmol/L (21.0-32.0) 11/08/23 06:05 BUN 18 mg/dL (7-18) 11/08/23 06:05 Creatinine 0.9 mg/dL (0.70-1.30) 11/08/23 06:05 Est GFR (CKD-EPI 2020) 97.78 (mL/min/1.73m2) 11/08/23 06:05 Magnesium 2.1 mg/dL (1.8-2.4) 11/08/23 06:05 Calcium 9.4 mg/dL (8.5-10.1) 11/08/23 06:05 Albumin 2.4 g/dL (3.4-5.0) L 11/07/23 12:00 Glucose 143 mg/dL (74-106) H 11/08/23 06:05 Liver Function Panel: 2 Alanine Aminotransferase (ALT/SGPT) 11 U/L (16-63) L 11/07/23 1 2:00 Aspartate Amino Transf (AST/SGOT) 13 U/L (15-37) L 11/07/23 12: 00 Coagulation Panel: 2 No Data to Display Cardiac Panel: 2 No Data to Display Arterial Blood Gas: 2 No Data to Display Venous Blood Gas: 2 No Data to Display Pancreas Panel: 2 No Data to Display Thyroid Panel: 2 Thyroid Stimulating Hormone (TSH) 3.78 uIU/mL (0.36-3.74) H 11/08/23 06:05 Infectious Disease: 2 Coronavirus (COVID-19)(PCR) Negative (Negative) 11/07/23 13:45 Coronavirus 2019 Source Nasopharynx 11/07/23 13:45 Influenza Virus Type A (PCR) Negative (Negative) 11/07/23 13:4 5 Influenza Virus Type B (PCR) Negative (Negative) 11/07/23 13:4 5 Respiratory Syncytial Virus (PCR) Negative (Negative) 11/07/23 13:45 Blood Cultures: 2 No Data to Display Toxicology Panel: 2 No Data to Display Imaging and Studies Imaging and Studies Study information below may be from another EMR and interpreted by another provider. Please see original notes in EMR for more complete details. EKG Summary: EKG PATIENT NAME: Vin Lopes UNIT #: [id number] ORDERING PROVIDER: Charlene Martinez M.D. PRIMARY CARE PROVIDER: JOSE RAUL COLIN NP DATE/TIME OF SERVICE: 11/07/23 1212 : 1965 PERFORMING LOCATION: [place] APPROVED REPORT Exam: Resting ECG Reason for Exam: COUGH Patient Location: E HR:82 bpm ECG Measurements Heart Rate 82 AXIS LA 121 P 69 QRSd 76 QRS 77 QT 352 T76 QTc 411 Conclusion Sinus rhythm. 82 normal axis no stemi - <Electronically signed by Charlene Martinez M.D. in [place]> E-Sign Date: 11/07/23 E-Sign Time: 1357 ADDENDUM APPROVED REPORT Exam: Resting ECG Reason for Exam: COUGH Patient Location: E HR:82 bpm ECG Measurements Heart Rate 82 AXIS LA 121 P 69 QRSd 76 QRS 77 QT 352 T76 QTc 411 Conclusion Sinus rhythm. 82 normal axis no stemi I have reviewed and I agree with the emergency room physician's ECG interpretation. Anesthesia Assessment and Plan Anesthesia History Personal History: No History of Anesthesia Complications Family History: No Family History of Anesthesia Complications Exercise Tolerance Exercise Tolerance: Metabolic Equivalents<4 Pertinent Negatives Pertinent Negatives: No Major Cardiovascular Symptoms or Complaints, No Major Pulmonary Symptoms or Complaints and No History of CVA/TIA Cardiac & Pulmonary Exam Cardiac Exam: Normal S1/S2 Heart Sounds Pulmonary Exam: Clear Bilateral Breath Sounds Implantable Cardiac Device Does patient have a Pacemaker or an ICD?: No Airway Exam Known Difficult Airway: No Mallampati Class: 2 Mouth Opening: Normal (> 3cm) Thyromental Distance: Greater than 3 cm Neck Range of Motion: Full ROM Neck Circumference: Normal Teeth Condition: Edentulous ASA Classification ASA Score: ASA 4 Emergency Case?: No NPO Status NPO Status: NPO Clears >2 hours, Solids >8 hours Anesthesia Plan Resuscitation Status: DNR Fully Suspended During Perioperative Period (but no heroics per patient) Anesthesia Technique: General Anesthesia Airway Planned: Endotracheal Tube Monitors Used: Standard Monitors
[2023-11-11] MEDS: Lactated Ringers 1,000 ML 30 ML IV (13:30)
[2023-11-11] MEDS: Lidocaine 1% Pres-Free 30 ML VIAL (14:10)
[2023-11-11] MEDS: fentaNYL 100 MCG/2 ML VIAL IVP ×2 (15:47→15:55)
--- NOTE | 2023-11-11 16:09 | W.ANESPOSTOP ---
Postoperative Evaluation Date, Time and Location Date Performed: 11/11/23 Time Performed: 16:09 Patient Location: PACU Vital Signs Most Recent Imported Vital Signs: Most Recent Vital Signs Temp Pulse Resp BP Pulse Ox 36.4 C L 54 L 12 155/81 H 96 11/11/23 15:50 11/11/23 15:50 11/11/23 15:50 11/11/23 15:50 11/11/23 15:50 Most Recent Vital Signs Temp Pulse Resp BP Pulse Ox 36.5 C 64 19 111/66 100 11/09/23 14:29 11/09/23 14:39 11/09/23 14:39 11/09/23 14:39 11/09/23 14:39 Pain Score Most Recent Pain Score: Most Recent Pain Score Pain Level 7 11/11/23 15:50 Assessment Mental Status: Awake (Alert & Oriented to Patient Baseline) Airway and Respiratory Function: Patent airway with normal (patient baseline) respiratory exam Cardiovascular Function: Hemodynamically Stable Hydration Status: Adequately Hydrated Nausea & Vomiting: No Nausea or Vomiting Pain: Pain is Moderate or Severe Postoperative Pain Management: Pain being addressed with medication and Ongoing pain, patient will be managed as an inpatient Peripheral Nerve Block: Patient did not receive a nerve block
[2023-11-11] MEDS: ACETAMINOPHEN 1,000 MG/100 ML BTL 400 MG IVPB (16:45)
--- NOTE | 2023-11-11 17:08 | PDOC.STREC ---
Date of service: 11/11/23 Time of Service: 16:30 Speech Therapy Recommendations Report ST Recommendations: SENIOR CARE ASSISTANT attempted to follow up x2 today: 1330 and 1630, patient off floor for laparoscopic PEG placement. SENIOR CARE ASSISTANT team recommends consideration of inpatient modified barium swallow study (MBSS) prior to discharge home to guide recommendations on pleasure feeds. Will discuss with patient/medical team. If patient is discharged before this is completed, it could be done as outpatient. Also recommend referral for consideration of upper esophageal dilation- as noted by surgery, patient would require a pediatric scope. As far as PO for pleasure and to avoid disuse atrophy, recommend [place] Free Water Protocol: small sips of thin water and ice chips AFTER thorough oral care is completed. Advise waiting on additional diet advancement until instrumental evaluation is completed. SENIOR CARE ASSISTANT home services indicated for training in dysphagia exercises/FFW protocol to reduce risk for disuse atrophy, as well as education on oral care to reduce aspiration pneumonia.
--- NOTE | 2023-11-11 17:25 | PGE_ITS ---
Date of Service Date of service: 11/11/23 Time of Service: 17: Assessment and Plan Assessment and plan (1) Aspiration pneumonia: Status: Acute Assessment and plan: initial CXR did not show the infiltrates but CT chest done 11/08 demonstrated bilateral basilar infiltrates most prominent in RLL and RML but also LLL, clinically he is improving on cefepime (day #3, begun 11/09) doxycycline (d#4, begun 11/08), however did have one day of Unasyn (11/07) continue bronchodilators, antibiotics (treat for 5 day total), he is doing well and not requiring supplemental oxygen but remains high risk of aspiration Qualifiers: Aspiration pneumonia type: due to gastric secretions Laterality: bilateral Lung location: lower lobe of lung Qualified Code(s): J69.0 - Pneumonitis due to inhalation of food and vomit (2) Dysphagia: Status: Acute Assessment and plan: failed EGD attempt at PEG, now s/p lap gastrostomy; I will wait until tomorrow to begin feedings through gastrostomy then initiate slowly; will re-consult ibm mainframe developer to assist w/ enteral feedings, per my discussion w/ Dr. Rogers we will proceed slowly, I will start out w/ half strength of whatever enteral formula that nutrition services recommends and then begin at slow rate and gradually increase over the weekend. Qualifiers: Dysphagia type: oropharyngeal phase Qualified Code(s): R13.12 - Dysphagia, oropharyngeal phase (3) Failure to thrive in adult: Status: Acute Assessment and plan: as above (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 Now with dysphagia and severe weight loss. C/s speech therapy and palliative care. (5) Alcoholism: Status: Resolved Assessment and plan: The patient no longer drinks. (6) Malnutrition: Status: Acute Assessment and plan: BMI 13.7. C/s nutrition Qualifiers: Malnutrition type: protein-calorie malnutrition Protein-calorie malnutrition severity: severe Qualified Code(s): E43 - Unspecified severe protein-calorie malnutrition (7) Alcoholic cirrhosis: Assessment and plan: HOld spironolactone as clinically dehydrated. (8) Oral candidiasis: Status: Acute Assessment and plan: IV fluconazole (d#4), treat for 10 to 14 days, once g tube is in place then will switch over to enteral form (9) DVT prophylaxis: Status: Acute Assessment and plan: Enoxaparin SC (10) Discharge planning issues: Status: Acute Assessment and plan: DNR/DNI when gastrostomy tube is in place and functional then can plan for dc home w/ services Subjective Subjective Interval history since last seen: Vin had his laparoscopic gastrostomy tube placed today. He says that he is hungry. He is also having some postoperative pain. Exam Narrative Exam Narrative: Sitting up in bed, alert and oriented LUngs: clear Heart: RRR Abdomen: hypoactive bowel sounds, nondistended; gastromy opening is covered w/ bandage, mild tenderness to palpation Objective Last Vital Signs Temp 35 C L 11/11/23 17:12 Pulse 59 L 11/11/23 17:12 Resp 16 11/11/23 17:12 BP 137/76 11/11/23 17:12 Pulse Ox 98 11/11/23 17:12 Time Spent with Patient Time Spent with Patient: 25-34 minutes Time was spent: preparing to see the patient(eg.review tests), ordering medications,tests, procedures, referring, communicating with other health career technical education teacher, indepentently interpreting results, counseling the patient and care coordination
[2023-11-11] MEDS: HYDROmorphone 2 MG/ML SYR IVP (17:32)
--- NOTE | 2023-11-11 18:06 | W.PM.OP ---
Date of service: 11/11/23 Time of Service: 15:10 Operative Note Operative Note DATE OF PROCEDURE: 11/09/23 ANESTHESIA TYPE: MAC Refer to Anesthesia Record Patient's condition: stable Procedure Description: Procedure: Laparoscopic gastrostomy tube placement Preoperative Diagnosis: Rebecca Goodrich MD evere dysphagia, severe malnutrition Postoperative diagnosis: Same Surgeon: Kourtney Rogers Assist Surgeon: Madeleine Goodrich MD Second surgeon attestation: Dr. Goodrich served as a second surgeon as no qualified assistant infant teacher was available. Anesthesia: General Anesthesiologist: Madeleine Indication: 58-year-old man with severe malnutrition because he cannot eat secondary to severe dysphagia. Endoscopic PEG attempts unsuccessful. Findings: G-tube placed without complication. Complications: None Estimated Blood Loss: None Urine Output: Not measured Specimens removed: None Grafts or implants: None Procedure in detail: Written consent was obtained from the patient who was in agreement the risks, the benefits and indications for the procedure. The patient was taken to the operating suite and laid supine on the operating table with both arms tucked. Preoperative antibiotic prophylaxis was given. Venodynes were in place. General anesthesia was administered which was tolerated very well. Next we prepped and draped the abdomen in sterile fashion. A timeout was performed. When we were all in agreement we began the procedure. Local anesthetic was injected. Within the [facility] a small stab incision was made and a 5 mm Optiview trocar was used to enter the abdomen under direct visualization. 2 other 5 mm trocars were placed under direct visualization. The stomach was mobile and an area on the greater curvature was selected it was verified it reached the anterior abdominal wall without difficulty. A purse-string silk suture was run. Next, two silk sutures were tied to pexy the stomach wall to the anterior abdominal wall in a location that was away from the costal margin and away from the midline. Next I created the gastrotomy using hook cautery. I was able to gently spread and dilate this whole and then the G-tube was passed directly into the defect and the balloon inflated. Next I tied the pursestring suture tight around the neck of the G-tube. Hemostasis was excellent. I removed the 5 mm ports. I closed the skin with a running Monocryl. Dermabond was placed on the skin. The sponge, instrument and sharps count was correct x3 at the end of the procedure. The patient tolerated the procedure well and was taken to the PACU in hemodynamically stable condition.
[2023-11-11] MEDS: Enoxaparin 40 MG/0.4 ML SYR SC (18:07)
[2023-11-11] MEDS: FLUCONAZOLE 200 MG/100 ML BAG 100 MG IVPB (22:27)
[2023-11-11] MEDS: Mirtazapine 15 MG TAB PO (22:27)
[2023-11-11] MEDS: Acetaminophen 500 MG TAB 1000 MG PO (22:49)
[2023-11-12] MEDS: CEFEPIME 2 GM in Normal Saline 100 ML IVPB ×2 (03:05→16:09)
[2023-11-12 03:25] VITALS: BP 145/79; PULSE 57; RESP 14; TEMP 36; O2SAT 99
[2023-11-12] MEDS: Levothyroxine 100 MCG TAB PO (06:31)
[2023-11-12] MEDS: Sucralfate 1 GM TAB PO (06:32)
[2023-11-12] MEDS: Pantoprazole 40 MG TABCR PO (06:32)
[2023-11-12 06:34] LABS: Abs Immature Grans 0.04 10^3/uL (0.0-0.06); Absolute Basophil Count 0.02 10^3/uL (0.0-0.2); Absolute Lymphocyte Count 1.22 10^3/uL (1.2-3.4); Absolute Monocyte Count 0.53 10^3/uL (0.1-0.8); Absolute Neutrophil Count 5.11 10^3/uL (1.2-6.7); Basophils % 0.3; HCT 40.7 % (40.0-50.0); HGB 12.9 g/dL (13.5-17.5); Immature Grans % 0.6; Lymphocytes % 17.6; MCH 24.9 pg (27.0-33.0); MCHC 31.7 % (32.0-36.0); MCV 78 fL (80-95); MPV 9.7 fL (8.0-11.0); Monocytes % 7.7; Neutrophils % 73.8; Platelet Count 239 10^3/uL (130-400); RBC 5.19 10^6/uL (4.36-5.78); RDW 14.3 % (11.8-14.1); RDW-SD 40.4 fL; WBC 6.92 10^3/uL (4.4-10.8)
[2023-11-12 06:50] LABS: Magnesium 1.8 mg/dL (1.8-2.4); PHOSPHORUS 3.6 mg/dL (2.6-4.7)
[2023-11-12 06:53] LABS: ALT 17 U/L (16-63); AST 25 U/L (15-37); Albumin 2.2 g/dL (3.4-5.0); Alkaline Phosphatase 115 U/L (46-116); Anion Gap 7.4 mmol/L (3-11); BUN 14 mg/dL (7-18); Bilirubin, Total 0.3 mg/dL (0.2-1.0); CO2 27.6 mmol/L (21.0-32.0); CREATININE 0.9 mg/dL (0.70-1.30); Calculated LDL 130 mg/dL (<100); Chloride 98 mmol/L (98-107); Cholesterol 202 mg/dL (<200); Estimated GFR 97.78 (mL/min/1.73m2); Glucose 89 mg/dL (74-106); HDL Cholesterol 47 mg/dL (40-60); Sodium 133 mmol/L (136-145); Total Protein 6.3 g/dL (6.4-8.2); Triglyceride 127 mg/dL (<150)
[2023-11-12 07:24] VITALS: BP 160/84; PULSE 59; RESP 18; TEMP 35.7; O2SAT 99
[2023-11-12] MEDS: methylPREDNISolone SUCC 40 MG VIAL IVP (08:25)
[2023-11-12] MEDS: Normal Saline Flush 10 ML SYR IVP (08:25)
[2023-11-12] MEDS: Magnesium Oxide 400 MG TAB PO (08:25)
[2023-11-12] MEDS: DOXYCYCLINE 100 MG in Normal Saline 100 ML IVPB ×2 (08:25→19:43)
--- NOTE | 2023-11-12 09:49 | W.PM.PROGNOT ---
Date of Service Date of service: 11/12/23 Time of Service: 09:49 Assessment and Plan Assessment and plan (1) G tube feedings: Status: Acute Assessment and plan: 58-year-old man postop day 1 from G-tube placement. He is stable and doing well. The G-tube looks great. You can start trickle feeding down the G-tube at no more than 10 mL/h and slowly progress. I recommend progressing very slowly and monitoring for refeeding syndrome over the next 3 days. Check electrolytes daily. Surgery signing off, call us back as needed Subjective Subjective Interval history since last seen: Doing great. No complaints. Exam Narrative Exam Narrative: G-tube: Looks great. No erythema. Dressing intact. The other incisions are clean dry and intact with skin glue. Objective Last Vital Signs Temp 96.3 F L 11/12/23 07:24 Pulse 59 L 11/12/23 07:24 Resp 18 11/12/23 07:24 BP 160/84 H 11/12/23 07:24 Pulse Ox 99 11/12/23 07:24 Laboratory Results - last 24 hr 11/12/23 06:10 WBC 6.92 RBC 5.19 Hgb 12.9 L Hct 40.7 MCV 78 L MCH 24.9 L MCHC 31.7 L RDW 14.3 H Plt Count 239 MPV 9.7 Immature Gran % 0.6 Neutrophils % 73.8 Lymphocytes % 17.6 Monocytes % 7.7 Eosinophils % 0.0 Basophils % 0.3 Nucleated RBC % 0.0 Absolute Neutrophils 5.11 Absolute Lymphocytes 1.22 Absolute Monocytes 0.53 Absolute Eosinophils 0.00 Absolute Basophils 0.02 Sodium 133 L Potassium 4.0 Chloride 98 Carbon Dioxide 27.6 Anion Gap 7.4 BUN 14 Creatinine 0.9 Est GFR (CKD-EPI 2020) 97.78 Glucose 89 Calcium 9.0 Phosphorus 3.6 Magnesium 1.8 Total Bilirubin 0.3 AST 25 ALT 17 Alkaline Phosphatase 115 Total Protein 6.3 L Albumin 2.2 L Triglycerides 127 Total Cholesterol 202 H LDL Cholesterol, Calc 130 H HDL Cholesterol 47 Time Spent with Patient Time Spent with Patient: <25 minutes Time was spent: referring, communicating with other health family day care provider, counseling the patient and care coordination
[2023-11-12 11:17] VITALS: BP 161/78; PULSE 60; RESP 18; TEMP 35.6; O2SAT 100
[2023-11-12] MEDS: Sucralfate 1 GM TAB NG ×3 (12:01→21:25)
[2023-11-12 15:18] VITALS: BP 116/74; PULSE 73; RESP 18; TEMP 35.7; O2SAT 100
--- NOTE | 2023-11-12 15:24 | CHAPLAIN ---
Vin was in bed watching tv when I visited. He said he is comfortable and being fed, pointing to the feeding tube bag hanging on the IV pole. Vin's sister Kamila Rodriguez works in housekeeping here and she and Vin live together. He thought Jennifer may be up to visit him after she gets done working at 3 p.m. Vin said with all that's going on, he's comfortable and grateful for that. Vin had a palliative care consult yesterday.
--- NOTE | 2023-11-12 15:44 | PGE_ITS ---
Date of Service Date of service: 11/12/23 Time of Service: 15:44 Assessment and Plan Assessment and plan (1) Aspiration pneumonia: Status: Acute Assessment and plan: initial CXR did not show the infiltrates but CT chest done 11/08 demonstrated bilateral basilar infiltrates most prominent in RLL and RML but also LLL, clinically he is improving on cefepime (day #4, begun 11/09) doxycycline (d#5, begun 11/08), however did have one day of Unasyn (11/07) continue bronchodilators, antibiotics (treat for 5 to 7 day total), he is doing well and not requiring supplemental oxygen but remains high risk of aspiration Qualifiers: Aspiration pneumonia type: due to gastric secretions Laterality: bilateral Lung location: lower lobe of lung Qualified Code(s): J69.0 - Pneumonitis due to inhalation of food and vomit (2) Dysphagia: Status: Acute Assessment and plan: only water per ASSOCIATE CIVIL ENGINEER recommendations until formal MBS study is done. Qualifiers: Dysphagia type: oropharyngeal phase Qualified Code(s): R13.12 - Dysphagia, oropharyngeal phase (3) Failure to thrive in adult: Status: Acute Assessment and plan: as above (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 Now with dysphagia and severe weight loss. C/s speech therapy and palliative care. (5) Alcoholism: Status: Resolved Assessment and plan: The patient no longer drinks. (6) Malnutrition: Status: Acute Assessment and plan: BMI 13.7. C/s nutrition Qualifiers: Malnutrition type: protein-calorie malnutrition Protein-calorie malnutrition severity: severe Qualified Code(s): E43 - Unspecified severe protein-calorie malnutrition (7) Alcoholic cirrhosis: Assessment and plan: HOld spironolactone as clinically dehydrated. No sign of peripheral edema (8) Oral candidiasis: Status: Acute Assessment and plan: IV fluconazole (d#5), treat for 10 to 14 days, can change from iv to enteral fluconazole (9) DVT prophylaxis: Status: Acute Assessment and plan: Enoxaparin SC (10) Discharge planning issues: Status: Acute Assessment and plan: DNR/DNI when gastrostomy tube is in place and functional then can plan for dc home w/ HH services will continue hospitalization until he is tolerating his tube feedings Subjective Subjective Interval history since last seen: Vin has no acute complaints. He still wants to eat. I told him that we need to get a modified barium swallow to evaluate what consistency he can tolerate. Exam Narrative Exam Narrative: Vin is sitting up watching TV, he appears to be well groomed Lungs: some coarse rhonchi bilaterally Heart: RRR Abdomen: scaphoid, g tube present on the left upper quadrant w/ no redness or induration around this and his abdomen is non-painful, tube feedings have been started per nutrition services recommendations of Nutren 2.0 at slow rate. Objective Last Vital Signs Temp 35.7 C L 11/12/23 15:18 Pulse 73 11/12/23 15:18 Resp 18 11/12/23 15:18 BP 116/74 11/12/23 15:18 Pulse Ox 100 11/12/23 15:18 Laboratory Results - last 24 hr 11/12/23 06:10 WBC 6.92 RBC 5.19 Hgb 12.9 L Hct 40.7 MCV 78 L MCH 24.9 L MCHC 31.7 L RDW 14.3 H Plt Count 239 MPV 9.7 Immature Gran % 0.6 Neutrophils % 73.8 Lymphocytes % 17.6 Monocytes % 7.7 Eosinophils % 0.0 Basophils % 0.3 Nucleated RBC % 0.0 Absolute Neutrophils 5.11 Absolute Lymphocytes 1.22 Absolute Monocytes 0.53 Absolute Eosinophils 0.00 Absolute Basophils 0.02 Sodium 133 L Potassium 4.0 Chloride 98 Carbon Dioxide 27.6 Anion Gap 7.4 BUN 14 Creatinine 0.9 Est GFR (CKD-EPI 2020) 97.78 Glucose 89 Calcium 9.0 Phosphorus 3.6 Magnesium 1.8 Total Bilirubin 0.3 AST 25 ALT 17 Alkaline Phosphatase 115 Total Protein 6.3 L Albumin 2.2 L Triglycerides 127 Total Cholesterol 202 H LDL Cholesterol, Calc 130 H HDL Cholesterol 47 Time Spent with Patient Time Spent with Patient: 25-34 minutes Time was spent: preparing to see the patient(eg.review tests), referring, communicating with other health health care marketing specialist (discussion w/ Dr. Rogers), indepentently interpreting results, counseling the patient and care coordination
--- NOTE | 2023-11-12 16:08 | PHA.REVIEW2 ---
Pharmacy Admission Review Admission Clinical Review Admission Pharmacy Review: G tube feedings (Acute) Aspiration pneumonia (Acute) DNR (do not resuscitate) (Acute) Palliative care patient (Acute) ACP (advance care planning) (Acute) Malnutrition (Acute) Failure to thrive in adult (Acute) Discharge planning issues (Acute) DVT prophylaxis (Acute) Dysphagia (Acute) Acute bronchitis (Acute) Oral candidiasis (Acute) No Known Allergies Allergy (Verified 11/07/23 11:52) Resuscitation Status DNR/DNI Height 5 ft 8 in Weight 42.774 kg Pharmacy Admission Review Renal Dosing Renal Dosing: BUN 14 mg/dL (7-18) 11/12/23 06:10 Creatinine 0.9 mg/dL (0.70-1.30) 11/12/23 06:10 Medications needing adjustments: Reviewed (crcl = 35) List of meds needing interventions: current meds ok. (adjust enoxaparin if crcl decreases below 30 mL/min) Anticoagulation Anticoagulation: Hgb 12.9 g/dL (13.5-17.5) L 11/12/23 06:10 Hct 40.7 % (40.0-50.0) 11/12/23 06:10 Plt Count 239 10^3/uL (130-400) 11/12/23 06:10 Creatinine 0.9 mg/dL (0.70-1.30) 11/12/23 06:10 Relevant Labs Relevant Labs: Sodium 133 mmol/L (136-145) L 11/12/23 06:10 Potassium 4.0 mmol/L (3.5-5.1) 11/12/23 06:10 Chloride 98 mmol/L (98-107) 11/12/23 06:10 Phosphorus 3.6 mg/dL (2.6-4.7) 11/12/23 06:10 Magnesium 1.8 mg/dL (1.8-2.4) 11/12/23 06:10
--- NOTE | 2023-11-12 16:22 | CMPROGNOTE_ITS ---
Date of service: 11/12/23 Time of Service: 16:22 Care Management Progress Note Progress Note Text Progress Note Text: S/O: Per provider, G-tube is going well thus far, anticipate Vin will remain at [facility] over the weekend. CM faxed referral to [facility] for home enteral nutrition. CM continues to follow. A: Vin is a 58 year old male admitted to [facility] on 11/07/23 with acute bronchitis, dysphagia, FTT. P: Anticipate Vin will return home with his sister once medically cleared. CM supporting new orders for enteral nutrition and VNA RN/ST for discharge. CM will continue to follow. SDOH(Care Management) Screening Will the Patient Participate in the Screening?: Unable to obtain Do you worry about having a steady place to live?: yes In the past 12 months, have you had to go without electric, gas, oil or water in your home?: no Have you or anyone in your house had to go without enough food to eat?: no Has lack of transportation kept you from medical appointments or from doing things needed for daily living?: no Has anyone in your support network made you feel unsafe for any reason?: yes Health Related Social Needs Health related social needs: housing instability, housed, with risk of homeles sness(Z59.811) and problem related to primary support group(Z63.9)
--- NOTE | 2023-11-12 17:49 | SPP_ITS ---
Date of service: 11/12/23 Time of Service: 17:49 Subjective Vin was contacted at bedside this date. He reports his G tube site is not bothering him. He reports no oral care since yesterday. He has been drinking water and taking some ice chips this date, reports no improvement in s/sx aspiration. OBJECTIVE/ASSESSMENT: Patient continues with profound oral/pharyngeal/esophageal dysphagia. Surgery for G tube placement was successful and without complication. Tube feeds have begun, slowly to mitigate risk for refeeding syndrome. Patient should remain NPO at this time until MBSS. Patient should continue to take small amounts of PO water (thin) and ice chips for comfort and to mitigate risk of disuse atrophy for swallowing. This session focused primarily on education regarding Phil Freewater protocol with patient/nursing. Provided demonstration and instruction for oral care Q3H using suction/swab, or toothbrush and yankauer suction. Once complete, patient took several consecutive sips water via straw with immediate coughing. Repeat instruction given to patient for small/single sips, throat clears, multiple swallows per sip, and small amounts per sitting/serving to mitigate extent of aspiration. Objective/Assessment/Plan Assessment FURTHER DIE TESTER SERVICES: Patient to be followed while on unit. MBSS tentatively to occurr 3/4 at 9am to inform DIE TESTER supplemental PO recommendations and for radiologist to visualize UES/CP anatomy in lateral projection. Upon Discharge, likely best for home health DIE TESTER services for training with strategies/freewater protocol, or outpatient DIE TESTER consult if not eligible for (either via [facility] [place] or [facility]). ADDITIONAL REFERRALS/CONSULTS SUGGESTED: Patient is followed by: Dr. Falk, ENT at [place], [place] Cornel Maldonado, Radiation Oncologist [facility] ([facility]) Erendira Boone APRN Oncology [facility] Patient would benefit from f/u with ENT jose francisco after d/c. Patient is agreeable to this. PLAN: Frequency: 2-3x/week for 1-2 weeks Goals: Fdc Goals: Patient will remain free from aspiration-related illness, malnutrition, and dehydration. Short Term Goals: Patient will tolerate Puree Diet and Thin liquids without overt s/s aspiration across 2/2 visits. - ON HOLD pending mBSS results. Patient will participate in MBSS. Time spent: 17:20 - 17:35 - 15m Recommendations Diet: NPO Other: [place] Free Water Protocol: small sips of thin water and ice chips AFTER thorough oral care is completed. Advise waiting on additional diet advancement until instrumental evaluation is completed. Medications: Via tube Strategies/Adaptions: Pace rate of intake, Small sips (with throat clear and secondary swallows) and Use straws Total Time Spent: 15
[2023-11-12 19:39] VITALS: BP 125/82; PULSE 68; RESP 16; TEMP 35.9; O2SAT 97
[2023-11-12] MEDS: Magnesium Oxide 400 MG TAB NG (19:43)
[2023-11-12] MEDS: Enoxaparin 40 MG/0.4 ML SYR SC (20:26)
[2023-11-12] MEDS: Mirtazapine 15 MG TAB NG (21:25)
[2023-11-12 23:31] VITALS: BP 146/81; PULSE 62; RESP 16; TEMP 35.9; O2SAT 98
[2023-11-13] MEDS: CEFEPIME 2 GM in Normal Saline 100 ML IVPB ×2 (03:29→16:32)
[2023-11-13 03:50] VITALS: BP 166/83; PULSE 68; RESP 16; TEMP 36.2; O2SAT 98
[2023-11-13] MEDS: Sucralfate 1 GM TAB NG ×4 (06:43→20:23)
[2023-11-13] MEDS: Levothyroxine 100 MCG TAB NG (06:43)
[2023-11-13 06:46] LABS: ALT 18 U/L (16-63); AST 24 U/L (15-37); Albumin 2.1 g/dL (3.4-5.0); Alkaline Phosphatase 112 U/L (46-116); Anion Gap 7.6 mmol/L (3-11); BUN 16 mg/dL (7-18); Bilirubin, Total 0.3 mg/dL (0.2-1.0); CO2 25.4 mmol/L (21.0-32.0); CREATININE 0.8 mg/dL (0.70-1.30); Calcium 8.4 mg/dL (8.5-10.1); Chloride 99 mmol/L (98-107); Estimated GFR 101.32 (mL/min/1.73m2); Glucose 94 mg/dL (74-106); Magnesium 1.7 mg/dL (1.8-2.4); Potassium 3.6 mmol/L (3.5-5.1); Sodium 132 mmol/L (136-145); Total Protein 6.2 g/dL (6.4-8.2)
[2023-11-13 06:59] LABS: Calculated LDL 131 mg/dL (<100); Cholesterol 207 mg/dL (<200); HDL Cholesterol 51 mg/dL (40-60); Triglyceride 126 mg/dL (<150)
[2023-11-13 07:41] VITALS: BP 131/75; PULSE 73; RESP 14; TEMP 36.2; O2SAT 95
[2023-11-13] MEDS: DOXYCYCLINE 100 MG in Normal Saline 100 ML IVPB ×2 (08:05→20:22)
[2023-11-13] MEDS: methylPREDNISolone SUCC 40 MG VIAL IVP (08:05)
[2023-11-13] MEDS: Normal Saline Flush 10 ML SYR IVP ×3 (08:12→20:21)
[2023-11-13] MEDS: Magnesium Oxide 400 MG TAB NG ×2 (09:10→20:24)
[2023-11-13 11:04] VITALS: BP 151/87; PULSE 66; RESP 16; TEMP 37.1; O2SAT 99
[2023-11-13 15:08] VITALS: BP 152/84; PULSE 71; RESP 16; TEMP 35.7; O2SAT 97
--- NOTE | 2023-11-13 16:04 | W.PM.PROGNOT ---
Date of Service Date of service: 11/13/23 Time of Service: 16:04 Assessment and Plan Assessment and plan (1) Aspiration pneumonia: Status: Acute Assessment and plan: initial CXR did not show the infiltrates but CT chest done 11/08 demonstrated bilateral basilar infiltrates most prominent in RLL and RML but also LLL, clinically he is improving on cefepime (day #5, begun 11/09) doxycycline (d#6, begun 11/08), however did have one day of Unasyn (11/07) continue bronchodilators, antibiotics (treat for 5 to 7 day total), he is doing well and not requiring supplemental oxygen but remains high risk of aspiration As he is afebrile and without increased oxygen needs he seems to be recovering well from his pneumonia. I will give him one or two more days of antibiotics but I think after 7 days he should be finished w/ his antibiotics even though his CT scan or CXR may lag behind. Qualifiers: Aspiration pneumonia type: due to gastric secretions Laterality: bilateral Lung location: lower lobe of lung Qualified Code(s): J69.0 - Pneumonitis due to inhalation of food and vomit (2) Dysphagia: Status: Acute Assessment and plan: FLIGHT READINESS TECHNICIAN requested he be NPO as she was concerned that dietary may send up more than just water. She will do the MBS on Wednesday then make recommendations on what pleasure eating he may try. Qualifiers: Dysphagia type: oropharyngeal phase Qualified Code(s): R13.12 - Dysphagia, oropharyngeal phase (3) Failure to thrive in adult: Status: Acute Assessment and plan: as above (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 Now with dysphagia and severe weight loss. C/s speech therapy and palliative care. (5) Alcoholism: Status: Resolved Assessment and plan: The patient no longer drinks. (6) Malnutrition: Status: Acute Assessment and plan: nutritional consult in chart regarding his tube feedings. to prevent refeeding syndrome, we have decreased his tube feeds which is Nutren 2.0 to half the rate he was at this morning from 20 mL/hr down to 10 mL/hr and will decrease the rate of increase to 5 mL/hr every 12 hours instead of every 8 hr. Will continue to monitor electrolytes and LFT and lipids daily. Qualifiers: Malnutrition type: protein-calorie malnutrition Protein-calorie malnutrition severity: severe Qualified Code(s): E43 - Unspecified severe protein-calorie malnutrition (7) Oral candidiasis: Status: Acute Assessment and plan: day #6 of 10 days of Fluconazole (had 5 days of iv fluconazole and changed to enteral liquid form yesterday (8) DVT prophylaxis: Status: Acute Assessment and plan: Enoxaparin SC (9) Discharge planning issues: Status: Acute Assessment and plan: DNR/DNI will continue hospitalization until he is tolerating his tube feedings then home w/ HH services to monitor his feedings and labs Subjective Subjective Patient reports: no new complaints Interval history since last seen: Vin complains of feeling hungry. I explained to him that the FLIGHT READINESS TECHNICIAN wants him to do a MBS on Wednesday to evaluate what level of diet he can tolerate for minimal eating for pleasure but that most of his nutrition will now be through his feeding tube. However, we have to go slow on advancing the tube feeds to avoid complications. Exam Narrative Exam Narrative: Abdomen: scaphoid, nondistended, normal bowel sounds, g tube appears good, no induration around it and no redness, he has a couple of bruised areas where he had trochar stab wounds that are now closed and without drainage Objective Last Vital Signs Temp 35.7 C L 11/13/23 15:08 Pulse 71 11/13/23 15:08 Resp 16 11/13/23 15:08 BP 152/84 H 11/13/23 15:08 Pulse Ox 97 11/13/23 15:08 Laboratory Results - last 24 hr 11/13/23 11/13/23 11/13/23 06:20 06:20 06:20 Sodium 132 L Potassium 3.6 Chloride 99 Carbon Dioxide 25.4 Anion Gap 7.6 BUN 16 Creatinine 0.8 Est GFR (CKD-EPI 2020) 101.32 Glucose 94 Calcium 8.4 L Phosphorus 2.0 L Cancelled Magnesium 1.7 L Cancelled Total Bilirubin 0.3 AST 24 ALT 18 Alkaline Phosphatase 112 Total Protein 6.2 L Albumin 2.1 L Triglycerides 126 Total Cholesterol 207 H LDL Cholesterol, Calc 131 H HDL Cholesterol 51 Time Spent with Patient Time Spent with Patient: 25-34 minutes Time was spent: preparing to see the patient(eg.review tests), ordering medications,tests, procedures, referring, communicating with other health career discovery teacher, indepentently interpreting results (Dr. Rogers), counseling the patient and care coordination
--- NOTE | 2023-11-13 17:20 | PGE_ITS ---
Date of Service Date of service: 11/13/23 Time of Service: 10:00 Assessment and Plan Assessment and plan (1) Refeeding syndrome: Status: Acute Assessment and plan: 58-year-old man postop day 2 from laparoscopic G-tube placement. Tube feeding was initiated yesterday. He has significant drops in phosphate today, this is very concerning and needs to be monitored carefully! He remains absolutely, extremely high risk for refeeding syndrome and low phosphorus is probably evidence of such starting. He needs to have unusually excessive attention paid to his electrolytes and hydration status. Feeding should be slowed down at this point because of the drop in phosphorus. Other electrolytes need to be monitored extremely carefully for the next few days if not the next week. He should have B12 and thiamine administered if that has not already been done. Surgery will continue to follow along until his electrolytes have stabilized. There do not appear to be any issues with feeding tube. Subjective Subjective Interval history since last seen: We initiated enteral feeding through the G-tube yesterday. Patient tolerating well - has no complaints. Phosphorus significantly down today. Exam Narrative Exam Narrative: General: Nontoxic and cachectic Abdomen: Nondistended and nontender. G-tube looks great. Objective Last Vital Signs Temp 96.3 F L 11/13/23 15:08 Pulse 71 11/13/23 15:08 Resp 16 11/13/23 15:08 BP 152/84 H 11/13/23 15:08 Pulse Ox 97 11/13/23 15:08 Laboratory Results - last 24 hr 11/13/23 11/13/23 11/13/23 06:20 06:20 06:20 Sodium 132 L Potassium 3.6 Chloride 99 Carbon Dioxide 25.4 Anion Gap 7.6 BUN 16 Creatinine 0.8 Est GFR (CKD-EPI 2020) 101.32 Glucose 94 Calcium 8.4 L Phosphorus 2.0 L Cancelled Magnesium 1.7 L Cancelled Total Bilirubin 0.3 AST 24 ALT 18 Alkaline Phosphatase 112 Total Protein 6.2 L Albumin 2.1 L Triglycerides 126 Total Cholesterol 207 H LDL Cholesterol, Calc 131 H HDL Cholesterol 51 Time Spent with Patient Time Spent with Patient: <25 minutes Time was spent: referring, communicating with other health district manager primary care sales, indepentently interpreting results and care coordination
[2023-11-13 18:40] LABS: Mycoplasma Pneumoniae PCR Negative (Negative); Specimen source sputum
[2023-11-13] MEDS: Enoxaparin 40 MG/0.4 ML SYR SC (19:22)
[2023-11-13 19:41] VITALS: BP 135/78; PULSE 61; RESP 16; TEMP 36.6; O2SAT 98
[2023-11-13] MEDS: Mirtazapine 15 MG TAB NG (20:24)
[2023-11-13 23:17] VITALS: BP 143/78; PULSE 59; RESP 16; TEMP 37.4; O2SAT 97
[2023-11-14 03:39] VITALS: BP 108/70; PULSE 62; RESP 16; TEMP 36; O2SAT 97
[2023-11-14] MEDS: CEFEPIME 2 GM in Normal Saline 100 ML IVPB ×2 (04:10→16:34)
[2023-11-14] MEDS: Levothyroxine 100 MCG TAB NG (05:36)
[2023-11-14 07:07] LABS: HGB 12.8 g/dL (13.5-17.5); MCH 25.4 pg (27.0-33.0); MCHC 32.8 % (32.0-36.0); MCV 77 fL (80-95); Platelet Count 243 10^3/uL (130-400); RBC 5.04 10^6/uL (4.36-5.78); RDW 14.7 % (11.8-14.1); RDW-SD 40.2 fL; WBC 7.23 10^3/uL (4.4-10.8)
[2023-11-14 07:10] LABS: ALT 24 U/L (16-63); AST 30 U/L (15-37); Albumin 2.1 g/dL (3.4-5.0); Alkaline Phosphatase 116 U/L (46-116); Anion Gap 7.7 mmol/L (3-11); BUN 16 mg/dL (7-18); Bilirubin, Total 0.4 mg/dL (0.2-1.0); CO2 26.3 mmol/L (21.0-32.0); CREATININE 0.8 mg/dL (0.70-1.30); Calcium 8.5 mg/dL (8.5-10.1); Chloride 99 mmol/L (98-107); Estimated GFR 101.32 (mL/min/1.73m2); Glucose 99 mg/dL (74-106); Magnesium 1.8 mg/dL (1.8-2.4); Potassium 3.6 mmol/L (3.5-5.1); Sodium 133 mmol/L (136-145)
[2023-11-14 07:23] LABS: Calculated LDL 125 mg/dL (<100); Cholesterol 204 mg/dL (<200); HDL Cholesterol 53 mg/dL (40-60); Triglyceride 132 mg/dL (<150)
[2023-11-14 07:31] VITALS: BP 126/76; PULSE 56; RESP 18; TEMP 35.6; O2SAT 97
[2023-11-14] MEDS: Magnesium Oxide 400 MG TAB NG ×2 (07:34→21:04)
[2023-11-14] MEDS: Sucralfate 1 GM TAB NG ×4 (07:35→21:04)
[2023-11-14] MEDS: Normal Saline Flush 10 ML SYR IVP ×3 (07:35→21:03)
[2023-11-14] MEDS: DOXYCYCLINE 100 MG in Normal Saline 100 ML IVPB ×2 (07:39→21:03)
[2023-11-14] MEDS: Thiamine 100 MG TAB PO (08:29)
[2023-11-14] MEDS: Cyanocobalamin 500 MCG TAB 1000 MCG NG (08:29)
[2023-11-14] MEDS: methylPREDNISolone SUCC 40 MG VIAL IVP (09:31)
--- NOTE | 2023-11-14 11:34 | PGE_ITS ---
Date of Service Date of service: 11/14/23 Time of Service: 11:39 Assessment and Plan Assessment and plan (1) Aspiration pneumonia: Status: Acute Assessment and plan: -initial CXR did not show the infiltrates but CT chest done 11/08 demonstrated bilateral basilar infiltrates most prominent in RLL and RML but also LLL, clinically he is improving on cefepime (day #6, begun 11/09) doxycycline (d#7, begun 11/08), however did have one day of Unasyn (11/07) -continue bronchodilators, antibiotics (treat for 5 to 7 day total), he is doing well and not requiring supplemental oxygen but remains high risk of aspiration -As he is afebrile and without increased oxygen needs he seems to be recovering well from his pneumonia. -will give him one or two more days of antibiotics but I think after 7 days he should be finished w/ his antibiotics even though his CT scan or CXR may lag behind. Qualifiers: Aspiration pneumonia type: due to gastric secretions Laterality: bilateral Lung location: lower lobe of lung Qualified Code(s): J69.0 - Pneumonitis due to inhalation of food and vomit (2) Dysphagia: Status: Acute Assessment and plan: -PATENT SOLICITOR requested he be NPO as she was concerned that dietary may send up more than just water. -She will do the MBS on Wednesday then make recommendations on what pleasure eati ng he may try. Qualifiers: Dysphagia type: oropharyngeal phase Qualified Code(s): R13.12 - Dysphagia, oropharyngeal phase (3) Failure to thrive in adult: Status: Acute Assessment and plan: -as above (4) Oral cancer: Assessment and plan: -S/p resection/XRT/chemo. -Now with dysphagia and severe weight loss. -C/s speech therapy and palliative care. (5) Alcoholism: Status: Resolved Assessment and plan: -The patient no longer drinks. (6) Malnutrition: Status: Acute Assessment and plan: -nutritional consult in chart regarding his tube feedings. -to prevent refeeding syndrome, we have decreased his tube feeds which is Nutren 2.0 to half the rate he was at this morning from 20 mL/hr down to 10 mL/hr and will decrease the rate of increase to 5 mL/hr every 12 hours instead of every 8 hr. Will continue to monitor electrolytes and LFT and lipids daily. Qualifiers: Malnutrition type: protein-calorie malnutrition Protein-calorie malnutrition severity: severe Qualified Code(s): E43 - Unspecified severe protein-calorie malnutrition (7) Oral candidiasis: Status: Acute Assessment and plan: -day #6 of 10 days of Fluconazole (had 5 days of iv fluconazole and changed to enteral liquid form yesterday (8) DVT prophylaxis: Status: Acute Assessment and plan: -Enoxaparin SC (9) Discharge planning issues: Status: Acute Assessment and plan: -DNR/DNI -will continue hospitalization until he is tolerating his tube feedings then home w/ HH services to monitor his feedings and labs Subjective Subjective Interval history since last seen: Patient states that he is hungry, but he understands that he is getting nutrition. Otherwise he is doing well and understands that he will have a modified barium swallow study tomorrow Exam Narrative Exam Narrative: Patient laying in bed in no acute distress, ANO x 4, heart regular rhythm, lungs clear to auscultation bilaterally, abdomen G-tube in place without surrounding erythema redness or drainage Objective Last Vital Signs Temp 96.1 F L 11/14/23 07:31 Pulse 56 L 11/14/23 07:31 Resp 18 11/14/23 07:31 BP 126/76 11/14/23 07:31 Pulse Ox 97 11/14/23 07:31 Laboratory Results - last 24 hr 11/14/23 11/14/23 11/14/23 06:00 06:00 06:00 WBC 7.23 RBC 5.04 Hgb 12.8 L Hct 39.0 L MCV 77 L MCH 25.4 L MCHC 32.8 RDW 14.7 H Plt Count 243 MPV 10.0 Sodium 133 L Potassium 3.6 Chloride 99 Carbon Dioxide 26.3 Anion Gap 7.7 BUN 16 Creatinine 0.8 Est GFR (CKD-EPI 2020) 101.32 Glucose 99 Calcium 8.5 Phosphorus 2.0 L Cancelled Magnesium 1.8 Cancelled Total Bilirubin 0.4 AST 30 ALT 24 Alkaline Phosphatase 116 Total Protein 6.0 L Albumin 2.1 L Triglycerides 132 Total Cholesterol 204 H LDL Cholesterol, Calc 125 H HDL Cholesterol 53 Time Spent with Patient Time Spent with Patient: >50 minutes Time was spent: preparing to see the patient(eg.review tests), obtaining and/or reviewing separately otained hiistory, ordering medications,tests, procedures, referring, communicating with other health acute care clinical nurse specialist, indepentently interpreting results, counseling the patient and care coordination
[2023-11-14 11:55] VITALS: BP 137/77; PULSE 62; RESP 18; TEMP 35.8; O2SAT 97
--- NOTE | 2023-11-14 12:43 | PGE_ITS ---
Date of Service Date of service: 11/14/23 Time of Service: 12:44 Assessment and Plan Assessment and plan (1) Refeeding syndrome: Status: Acute Assessment and plan: Patient doing well and looks great. He is dynamically stable. The G-tube looks perfect. Phosphate is still low today, other electrolytes grossly stable. I recommend continuing feeding at the current rate(or slower) and carefully continuing to monitor and replace e-lytes and maintain good hydration. Free water can be put down the G-tube as needed and probably some amount scheduled should be administered to ensure enteric hydration over the next couple of critical days. Subjective Subjective Interval history since last seen: Patient has no complaints at the bedside. Exam Narrative Exam Narrative: General: Nontoxic, comfortable and interactive Neuro: Alert and oriented x 3 Psych: Baseline mood and affect, good insight and understanding Chest: Nonlabored breathing Heart: Regular Abdomen: Soft, nondistended and nontender. G-tube looks perfect. Incision sites look perfect. Objective Last Vital Signs Temp 96.4 F L 11/14/23 11:55 Pulse 62 11/14/23 11:55 Resp 18 11/14/23 11:55 BP 137/77 11/14/23 11:55 Pulse Ox 97 11/14/23 11:55 Laboratory Results - last 24 hr 11/14/23 11/14/23 11/14/23 06:00 06:00 06:00 WBC 7.23 RBC 5.04 Hgb 12.8 L Hct 39.0 L MCV 77 L MCH 25.4 L MCHC 32.8 RDW 14.7 H Plt Count 243 MPV 10.0 Sodium 133 L Potassium 3.6 Chloride 99 Carbon Dioxide 26.3 Anion Gap 7.7 BUN 16 Creatinine 0.8 Est GFR (CKD-EPI 2020) 101.32 Glucose 99 Calcium 8.5 Phosphorus 2.0 L Cancelled Magnesium 1.8 Cancelled Total Bilirubin 0.4 AST 30 ALT 24 Alkaline Phosphatase 116 Total Protein 6.0 L Albumin 2.1 L Triglycerides 132 Total Cholesterol 204 H LDL Cholesterol, Calc 125 H HDL Cholesterol 53 Time Spent with Patient Time Spent with Patient: <25 minutes Time was spent: referring, communicating with other health ocular care technologist, indepentently interpreting results, counseling the patient and care coordination
[2023-11-14 15:10] VITALS: BP 130/76; PULSE 64; RESP 16; TEMP 36; O2SAT 98
[2023-11-14] MEDS: Enoxaparin 40 MG/0.4 ML SYR SC (18:27)
[2023-11-14 19:54] VITALS: BP 132/79; PULSE 62; RESP 16; TEMP 36; O2SAT 97
[2023-11-14] MEDS: Mirtazapine 15 MG TAB NG (21:04)
[2023-11-15 03:23] VITALS: BP 135/77; PULSE 67; RESP 16; TEMP 35.6; O2SAT 96
[2023-11-15] MEDS: CEFEPIME 2 GM in Normal Saline 100 ML IVPB (03:29)
[2023-11-15] MEDS: Levothyroxine 100 MCG TAB NG (06:25)
[2023-11-15 06:34] LABS: ALT 29 U/L (16-63); AST 33 U/L (15-37); Albumin 2.1 g/dL (3.4-5.0); Alkaline Phosphatase 128 U/L (46-116); Anion Gap 6.3 mmol/L (3-11); BUN 15 mg/dL (7-18); Bilirubin, Total 0.4 mg/dL (0.2-1.0); CO2 26.7 mmol/L (21.0-32.0); CREATININE 0.6 mg/dL (0.70-1.30); Calcium 8.6 mg/dL (8.5-10.1); Calculated LDL 125 mg/dL (<100); Chloride 98 mmol/L (98-107); Cholesterol 200 mg/dL (<200); Estimated GFR 110.51 (mL/min/1.73m2); Glucose 98 mg/dL (74-106); HDL Cholesterol 55 mg/dL (40-60); Magnesium 1.7 mg/dL (1.8-2.4); Potassium 3.5 mmol/L (3.5-5.1); Sodium 131 mmol/L (136-145); Total Protein 5.9 g/dL (6.4-8.2); Triglyceride 102 mg/dL (<150)
[2023-11-15 06:47] LABS: PHOSPHORUS 2.2 mg/dL (2.6-4.7)
[2023-11-15] MEDS: Sucralfate 1 GM TAB NG ×4 (07:38→22:33)
[2023-11-15] MEDS: Cyanocobalamin 500 MCG TAB 1000 MCG NG (07:38)
[2023-11-15] MEDS: Thiamine 100 MG TAB PO (07:39)
[2023-11-15] MEDS: Magnesium Oxide 400 MG TAB NG ×2 (07:39→20:20)
[2023-11-15] MEDS: Normal Saline Flush 10 ML SYR IVP ×2 (07:40→20:20)
[2023-11-15] MEDS: DOXYCYCLINE 100 MG in Normal Saline 100 ML IVPB (07:58)
[2023-11-15 08:04] VITALS: BP 139/74; PULSE 83; RESP 16; TEMP 35.9; O2SAT 100
[2023-11-15] MEDS: methylPREDNISolone SUCC 40 MG VIAL IVP (09:30)
--- NOTE | 2023-11-15 10:10 | PGE_ITS ---
Date of Service Date of service: 11/15/23 Time of Service: 10:10 Assessment and Plan Assessment and plan (1) Aspiration pneumonia: Status: Acute Assessment and plan: -initial CXR did not show the infiltrates but CT chest done 11/08 demonstrated bilateral basilar infiltrates most prominent in RLL and RML but also LLL, clinically he is improving on cefepime (day #6, begun 11/09) doxycycline (d#7, begun 11/08), however did have one day of Unasyn (11/07) -continue bronchodilators, antibiotics (treat for 5 to 7 day total), he is doing well and not requiring supplemental oxygen but remains high risk of aspiration -As he is afebrile and without increased oxygen needs he seems to be recovering well from his pneumonia. -will give him one or two more days of antibiotics but I think after 7 days he should be finished w/ his antibiotics even though his CT scan or CXR may lag behind. Qualifiers: Aspiration pneumonia type: due to gastric secretions Laterality: bilateral Lung location: lower lobe of lung Qualified Code(s): J69.0 - Pneumonitis due to inhalation of food and vomit (2) Dysphagia: Status: Acute Assessment and plan: -SENIOR MANAGER QUALITY ASSURANCE requested he be NPO as she was concerned that dietary may send up more than just water. -She will do the MBS on Wednesday then make recommendations on what pleasure eat ing he may try. Qualifiers: Dysphagia type: oropharyngeal phase Qualified Code(s): R13.12 - Dysphagia, oropharyngeal phase (3) Failure to thrive in adult: Status: Acute Assessment and plan: -as above (4) Oral cancer: Assessment and plan: -S/p resection/XRT/chemo. -Now with dysphagia and severe weight loss. -C/s speech therapy and palliative care. (5) Alcoholism: Status: Resolved Assessment and plan: -The patient no longer drinks. (6) Malnutrition: Status: Acute Assessment and plan: -nutritional consult in chart regarding his tube feedings. -to prevent refeeding syndrome, we have decreased his tube feeds which is Nutren 2.0 to half the rate he was at this morning from 20 mL/hr down to 10 mL/hr and will decrease the rate of increase to 5 mL/hr every 12 hours instead of every 8 hr. Will continue to monitor electrolytes and LFT and lipids daily. Qualifiers: Malnutrition type: protein-calorie malnutrition Protein-calorie malnutrition severity: severe Qualified Code(s): E43 - Unspecified severe protein-calorie malnutrition (7) Oral candidiasis: Status: Acute Assessment and plan: -day #7 of 10 days of Fluconazole (had 5 days of iv fluconazole and changed to enteral liquid form yesterday (8) DVT prophylaxis: Status: Acute Assessment and plan: -Enoxaparin SC (9) Discharge planning issues: Status: Acute Assessment and plan: -DNR/DNI -will continue hospitalization until he is tolerating his tube feedings then home w/ HH services to monitor his feedings and labs Subjective Subjective Interval history since last seen: Patient states that he is doing well today. He understands that his modified barium swallow study is being delayed until tomorrow. Otherwise he has no other complaints or concerns at this Exam Narrative Exam Narrative: Patient laying in bed in no acute distress, ANO x 4, heart regular rhythm, lungs clear to auscultation bilaterally, abdomen G-tube in place without surrounding erythema redness or drainage Objective Last Vital Signs Temp 96.6 F L 11/15/23 08:04 Pulse 83 11/15/23 08:04 Resp 16 11/15/23 08:04 BP 139/74 11/15/23 08:04 Pulse Ox 100 11/15/23 08:04 Laboratory Results - last 24 hr 11/10/23 11/15/23 11/15/23 11:00 05:55 05:55 Sodium 131 L Potassium 3.5 Chloride 98 Carbon Dioxide 26.7 Anion Gap 6.3 BUN 15 Creatinine 0.6 L Est GFR (CKD-EPI 2020) 110.51 Glucose 98 Calcium 8.6 Phosphorus 2.2 L Cancelled Magnesium 1.7 L Total Bilirubin AST ALT Alkaline Phosphatase Total Protein Albumin Triglycerides Total Cholesterol LDL Cholesterol, Calc HDL Cholesterol M. pneumoniae Source sputum M. pneumoniae (PCR) Negative 11/15/23 05:55 Sodium Potassium Chloride Carbon Dioxide Anion Gap BUN Creatinine Est GFR (CKD-EPI 2020) Glucose Calcium Phosphorus Magnesium Cancelled Total Bilirubin 0.4 AST 33 ALT 29 Alkaline Phosphatase 128 H Total Protein 5.9 L Albumin 2.1 L Triglycerides 102 Total Cholesterol 200 LDL Cholesterol, Calc 125 H HDL Cholesterol 55 M. pneumoniae Source M. pneumoniae (PCR) Time Spent with Patient Time Spent with Patient: >50 minutes Time was spent: preparing to see the patient(eg.review tests), obtaining and/or reviewing separately otained hiistory, ordering medications,tests, procedures, referring, communicating with other health patient care technician, indepentently interpreting results, counseling the patient and care coordination
--- NOTE | 2023-11-15 11:33 | PCPN_ITS ---
Date of service: 11/15/23 Time of Service: 09:45 Assessment and Plan Assessment and plan (1) Refeeding syndrome: Status: Acute Assessment and plan: feeds decreased to half rate to 10mL/hr, will now increase at half rate (5mL/hr q12h) continue close monitoring of electrolytes, LFT, lipids; phosphate has been low nutrition following (2) G tube feedings: Status: Acute Assessment and plan: placed ; Vin denies issues/concerns w/tube at this time nutrition following (3) Aspiration pneumonia: Status: Acute Assessment and plan: now on RA; afebrile; recovering well from PNA continue cefepime and doxycyline through 7 days high risk for aspiration Qualifiers: Aspiration pneumonia type: due to gastric secretions Laterality: bilateral Lung location: lower lobe of lung Qualified Code(s): J69.0 - Pneum onitis due to inhalation of food and vomit (4) DNR (do not resuscitate): Status: Acute Assessment and plan: COLST now on file from 2015; DNR/I, trial IVF/abx of note it says no feeding tube, however Vin has capacity to make medical decisions and did at time of agreeing to tube placement (5) Palliative care patient: Status: Acute Assessment and plan: PC will continue to follow closely, will plan for f/u on this week for ongoing review of plan (6) Malnutrition: Status: Acute Assessment and plan: see above Qualifiers: Malnutrition type: protein-calorie malnutrition Protein-calorie malnutrition severity: severe Qualified Code(s): E43 - Unspecified severe protein-calorie malnutrition (7) Failure to thrive in adult: Status: Acute (8) Head and neck cancer: Assessment and plan: w/h/o resection L neck; 2 rounds chemo/radiation was to f/u w/oncology today 3/4 - on hold at this time leading to dysphagia, malnutrition and FTT (9) ACP (advance care planning): Status: Acute Assessment and plan: reviewed options for going home on hospice today vs waiting a few days w/monitoring; Vin and Jennifer decide together to wait a few days to see if there is any improvement, w/low threshold for discharge home on hospice if no improvements or remains not clinically cleared. - Vin demonstrates understanding that he may not survive his significant malnutrition, despite now having the feeding tube; his preference would be to return home on hospice - He would consider an esophageal dilation procedure if there was a potential for it to improve his current eating abilities, he would like to be off NPO; he is aware MBSS may be required prior to dilation, comfortable for waiting for PUNCHING MACHINE OPERATOR consult tomorrow when services available. - reviewed discharge home w and w/o feeding tube feeds, may consider leaving tube in w/o feedings if home on hospice; added to hospice watch list spent 25 mins w/ACP Subjective Subjective Interval history since last seen: Last PC visit 11/08 - 11/08 failed EGD d/t esophageal narrowing - - G tube placed; significant concern w/refeeding syndrome; surgery will continue to follow at this time recommend referral for esophageal dilation slow/reduced rate for FT introduction phosphate remains low since starting tube feeds, all other electrolytes appear stable; will continue close monitoring and reduced rates of tube feeds - continues abx for suspected aspiration PNA, clinically better, infiltrates on CT remain present; will complete full 7 day course of cefepime and doxycycline - was scheduled for PUNCHING MACHINE OPERATOR f/u and MBSS today, however PUNCHING MACHINE OPERATOR services not available today Vin does not feel optimistic that tube feedings will be successful and would like to consider plan for if this doesn't work, and to get this shit over with, when asked to clarify, he confirms he means dying. He denies depression as cause of this change, rather acceptance to current health conditions, and that he is ready to go; initially he was unsure what he was comfortable with, re staying/monitoring for a few days vs discharge home today/tomorrow on hospice; he is unsure if he would want an esophageal dilation procedure, would consider if it made eating some foods more tolerable Sister Kamila (Jennifer) joins visit and they make the decision together to wait a few days to see how he tolerates the tube feedings. If no changes in a few days, would want to go home on hospice. They deny any DME needs, he has a cane and walker in home; if snow clears could walk straight into home, if not would need to climb a flight of stairs; Would not want to consider FT feedings if leaves on hospice He continues to tolerate sips of water w/no issues, remains NPO per PUNCHING MACHINE OPERATOR recommendations, he would like to be able to eat some food. He denies nausea or abdominal pain, does endorse some gassiness, able to pass w/o issue; reports pain in butt from lying, tolerable, denies pain management Exam Narrative Exam Narrative: General: thin, cachecix man, lying in dark room in bed; AAOx3 HEENT: atraumatic, normocephalic, hearing grossly WNL Resp: regular respiratory effort and rate, speaks full sentences w/no SOB, no audible wheeze; Psych: cooperative, pleasant, fatigued; thought process clear, judgment/insight good Objective Last Vital Signs Temp 96.6 F L 11/15/23 08:04 Pulse 83 11/15/23 08:04 Resp 16 11/15/23 08:04 BP 139/74 11/15/23 08:04 Pulse Ox 100 11/15/23 08:04 Laboratory Results - last 24 hr 11/10/23 11/15/23 11/15/23 11:00 05:55 05:55 Sodium 131 L Potassium 3.5 Chloride 98 Carbon Dioxide 26.7 Anion Gap 6.3 BUN 15 Creatinine 0.6 L Est GFR (CKD-EPI 2020) 110.51 Glucose 98 Calcium 8.6 Phosphorus 2.2 L Cancelled Magnesium 1.7 L Total Bilirubin AST ALT Alkaline Phosphatase Total Protein Albumin Triglycerides Total Cholesterol LDL Cholesterol, Calc HDL Cholesterol M. pneumoniae Source sputum M. pneumoniae (PCR) Negative 11/15/23 05:55 Sodium Potassium Chloride Carbon Dioxide Anion Gap BUN Creatinine Est GFR (CKD-EPI 2020) Glucose Calcium Phosphorus Magnesium Cancelled Total Bilirubin 0.4 AST 33 ALT 29 Alkaline Phosphatase 128 H Total Protein 5.9 L Albumin 2.1 L Triglycerides 102 Total Cholesterol 200 LDL Cholesterol, Calc 125 H HDL Cholesterol 55 M. pneumoniae Source M. pneumoniae (PCR)
[2023-11-15 11:39] VITALS: BP 155/84; PULSE 61; RESP 18; TEMP 35.6; O2SAT 99
--- NOTE | 2023-11-15 12:12 | TELEFU_ITS ---
Date of service: 11/15/23 Time of Service: 11:30 Nutrition Note NOTE: Pt s/p gtube placement morning of 11/11. Continuous enteral feeding with nutren 2.0 was initiated at 10mL per hour with increase by 5mL [id number]. Labs the following day showed drop in phos which shows slight improvement today with repletion. Mg and thiamine being supplemented. Sodium 133 yesterday 131 today along with slightly low Mg. Labs otherwise looking very good regarding refeeding syndrome. Currently at max rate of initial goal - 22mL per hour and receiving 30mL flushes [id number] (180mL fluid per 24 hours). This provides 1056kcals, 44g protein and 545mL fluid Recommend: Vitamin D lab and replete if low. Low vitamin D can contribute to hypophosphatemia. Remain on current enteral feeding rate until labs are back tomorrow morning as goal rate has not been sustained for 24 hours yet. If labs are looking good in the morning would recommend adding 1 pkt active liquid protein via gtube to meet his initial protein goal of 1.5g/kg (62grams) and then can make a recommendation to increase rate to increase intake by ~300 kcals per day. Recommended goal for discharge to transition to gravity or bolus enteral feedings. Sunitha Aguiar RDN at [facility] has followed Vin acosta and will resume supervision and progression of enteral feedings once discharged. I will alert her when he is deemed medically ready for dishcharge by providers. Time Spent in Nutritional Counseling and Treatment: 15 minutes
[2023-11-15 15:20] VITALS: BP 145/77; PULSE 58; RESP 18; TEMP 35.4; O2SAT 99
[2023-11-15] MEDS: Enoxaparin 40 MG/0.4 ML SYR SC (18:28)
--- NOTE | 2023-11-15 18:50 | PDOC.CMPRO ---
Date of service: 11/15/23 Time of Service: 18:50 Care Management Progress Note Progress Note Text Progress Note Text: S/O: Vin was lying in bed relaxing when CM met with him. He stated that he is doing well. CM discussed the process of coordinating his enteral nutrition through [facility]; the referral was updated today and is pending. Vin has an appointment scheduled on 11/18/[address] King at [facility], and Vin asked for support in rescheduling the appointment, as he may not be discharged home on that date. CM contacted ENT at [facility], who rescheduled his appointment for 11/22/23 at 11am. He is scheduled to have a modified barium swallow evaluation with Speech therapy tomorrow. CM will continue to follow. A: Vin is a 58 year old male admitted to [facility] on 11/07/23 with acute bronchitis, dysphagia, FTT. P: Anticipate Vin will return home with his sister once medically cleared. CM supporting new orders for enteral nutrition and VNA RN/ST for discharge. CM will continue to follow. SDOH(Care Management) Screening Will the Patient Participate in the Screening?: Unable to obtain Do you worry about having a steady place to live?: yes In the past 12 months, have you had to go without electric, gas, oil or water in your home?: no Have you or anyone in your house had to go without enough food to eat?: no Has lack of transportation kept you from medical appointments or from doing things needed for daily living?: no Has anyone in your support network made you feel unsafe for any reason?: yes Health Related Social Needs Health related social needs: housing instability, housed, with risk of homelessness(Z59.811) and problem related to primary support group(Z63.9)
[2023-11-15 19:38] VITALS: BP 144/77; PULSE 61; RESP 16; TEMP 35.8; O2SAT 99
[2023-11-15] MEDS: Mirtazapine 15 MG TAB NG (22:33)
[2023-11-15 22:51] VITALS: BP 142/77; PULSE 59; RESP 18; TEMP 35.6; O2SAT 98
[2023-11-16 03:28] VITALS: BP 130/84; PULSE 62; RESP 19; TEMP 36; O2SAT 98
[2023-11-16] MEDS: Levothyroxine 100 MCG TAB NG (05:19)
[2023-11-16 06:28] LABS: Anion Gap 6.7 mmol/L (3-11); BUN 16 mg/dL (7-18); CO2 27.3 mmol/L (21.0-32.0); CREATININE 0.7 mg/dL (0.70-1.30); Calcium 8.8 mg/dL (8.5-10.1); Chloride 97 mmol/L (98-107); Estimated GFR 105.49 (mL/min/1.73m2); Glucose 85 mg/dL (74-106); Potassium 3.5 mmol/L (3.5-5.1); Sodium 131 mmol/L (136-145)
[2023-11-16 08:08] VITALS: BP 133/74; PULSE 70; RESP 18; TEMP 36; O2SAT 96
[2023-11-16] MEDS: methylPREDNISolone SUCC 40 MG VIAL IVP (08:51)
--- NOTE | 2023-11-16 08:55 | PDOC.CMPRO ---
Date of service: 11/16/23 Time of Service: 15:09 Care Management Progress Note Progress Note Text Progress Note Text: S/O: CM coordinated updates to Enteral nutrition orders including duration, connection, diagnosis codes, and reviewed with [facility], planned delivery for the evening of 11/17/23. Vin will continue to be followed by outpatient nutrition at [facility] [place]: Sunitha Aguiar, ELSIN, LDN, MS Clinical Oncology Dietitian [facility].[place] ?[facility]? A: Vin is a 58 year old male admitted to [facility] on 11/07/23 with acute bronchitis, dysphagia, FTT. P: Anticipate Vin will return home with his sister once medically cleared. CM supporting new orders for enteral nutrition and VNA RN/ST for discharge. CM will continue to follow. SDOH(Care Management) Screening Will the Patient Participate in the Screening?: Unable to obtain Do you worry about having a steady place to live?: yes In the past 12 months, have you had to go without electric, gas, oil or water in your home?: no Have you or anyone in your house had to go without enough food to eat?: no Has lack of transportation kept you from medical appointments or from doing things needed for daily living?: no Has anyone in your support network made you feel unsafe for any reason?: yes Health Related Social Needs Health related social needs: housing instability, housed, with risk of homelessness(Z59.811) and problem related to primary support group(Z63.9)
[2023-11-16] MEDS: Magnesium Oxide 400 MG TAB NG ×2 (08:58→19:43)
[2023-11-16] MEDS: Sucralfate 1 GM TAB NG ×4 (08:58→21:45)
[2023-11-16] MEDS: Cyanocobalamin 500 MCG TAB 1000 MCG NG (08:58)
[2023-11-16] MEDS: Thiamine 100 MG TAB PO (08:58)
[2023-11-16] MEDS: Normal Saline Flush 10 ML SYR IVP ×2 (08:59→19:43)
--- NOTE | 2023-11-16 09:00 | DI.RAD_ITS ---
Exam(s) RF MODIFIED SPEECH BA SWALLOW TECHNIQUE: Modified barium swallow was performed in conjunction with speech pathology. CONTRAST MATERIAL: Oral barium contrast was administered. COMPARISON: No exams were available for comparison FINDINGS: Note that this is not a dedicated esophagram, distal esophagus not evaluated. The examination was performed with thin liquid, thick liquid and barium pudding. The patient was kranthi wn to aspirate with liquid and barium pudding during the examination. Speech pathology report to hermelinda toth. IMPRESSION: Aspiration of liquid and pudding during the examination. RADIATION DOSE DELIVERED: kierra Negro=9.29 mGy
--- NOTE | 2023-11-16 09:47 | W.PM.PROGNOT ---
Date of Service Date of service: 11/16/23 Time of Service: 09:48 Assessment and Plan Assessment and plan (1) Aspiration pneumonia: Status: Acute Assessment and plan: -initial CXR did not show the infiltrates but CT chest done 11/08 demonstrated bilateral basilar infiltrates most prominent in RLL and RML but also LLL, clinically he is improving on cefepime (day #6, begun 11/09) doxycycline (d#7, begun 11/08), however did have one day of Unasyn (11/07) -continue bronchodilators, antibiotics (treat for 5 to 7 day total), he is doing well and not requiring supplemental oxygen but remains high risk of aspiration -As he is afebrile and without increased oxygen needs he seems to be recovering well from his pneumonia. -will give him one or two more days of antibiotics but I think after 7 days he should be finished w/ his antibiotics even though his CT scan or CXR may lag behind. Qualifiers: Aspiration pneumonia type: due to gastric secretions Laterality: bilateral Lung location: lower lobe of lung Qualified Code(s): J69.0 - Pneumonitis due to inhalation of food and vomit (2) Dysphagia: Status: Acute Assessment and plan: -CANCER GENETIC COUNSELOR requested he be NPO as she was concerned that dietary may send up more than just water. -MBS today showed profound dysphagia likely secondary to chemo/radiation therapy -patient is to remain NPO indefinitely, though could chose to work with Speech Therapy as an outpatient to possibly work towards pleasure intake Qualifiers: Dysphagia type: oropharyngeal phase Qualified Code(s): R13.12 - Dysphagia, oropharyngeal phase (3) Failure to thrive in adult: Status: Acute Assessment and plan: -as above (4) Oral cancer: Assessment and plan: -S/p resection/XRT/chemo. -Now with dysphagia and severe weight loss. -C/s speech therapy and palliative care. (5) Alcoholism: Status: Resolved Assessment and plan: -The patient no longer drinks. (6) Malnutrition: Status: Acute Assessment and plan: -nutritional consult in chart regarding his tube feedings. -to prevent refeeding syndrome, we have decreased his tube feeds which is Nutren 2.0 to half the rate he was at this morning from 20 mL/hr down to 10 mL/hr and will decrease the rate of increase to 5 mL/hr every 12 hours instead of every 8 hr. Will continue to monitor electrolytes and LFT and lipids daily. Qualifiers: Malnutrition type: protein-calorie malnutrition Protein-calorie malnutrition severity: severe Qualified Code(s): E43 - Unspecified severe protein-calorie malnutrition (7) Oral candidiasis: Status: Acute Assessment and plan: -day #7 of 10 days of Fluconazole (had 5 days of iv fluconazole and changed to enteral liquid form yesterday (8) DVT prophylaxis: Status: Acute Assessment and plan: -Enoxaparin SC (9) Discharge planning issues: Status: Acute Assessment and plan: -DNR/DNI -will continue hospitalization until he is tolerating his tube feedings then home w/ HH services to monitor his feedings and labs Subjective Subjective Interval history since last seen: Patient states that he is doing well today and understands we are continuing to work on the paperwork for his home tube Exam Narrative Exam Narrative: Patient laying in bed in no acute distress, ANO x 4, heart regular rhythm, lungs clear to auscultation bilaterally, abdomen G-tube in place without surrounding erythema redness or drainage Objective Last Vital Signs Temp 96.8 F L 11/16/23 08:08 Pulse 70 11/16/23 08:08 Resp 18 11/16/23 08:08 BP 133/74 11/16/23 08:08 Pulse Ox 96 11/16/23 08:08 Laboratory Results - last 24 hr 11/16/23 05:50 Sodium 131 L Potassium 3.5 Chloride 97 L Carbon Dioxide 27.3 Anion Gap 6.7 BUN 16 Creatinine 0.7 Est GFR (CKD-EPI 2020) 105.49 Glucose 85 Calcium 8.8 Time Spent with Patient Time Spent with Patient: >50 minutes Time was spent: preparing to see the patient(eg.review tests), obtaining and/or reviewing separately otained hiistory, ordering medications,tests, procedures, referring, communicating with other health health care technician, indepentently interpreting results, counseling the patient and care coordination
[2023-11-16 11:04] VITALS: BP 142/75; PULSE 70; RESP 12; TEMP 35.6; O2SAT 98
[2023-11-16 11:48] LABS: Lab Add On Test DONE
[2023-11-16 12:06] LABS: ALT 31 U/L (16-63); AST 28 U/L (15-37); Albumin 2.3 g/dL (3.4-5.0); Alkaline Phosphatase 132 U/L (46-116); Bilirubin, Total 0.4 mg/dL (0.2-1.0); Total Protein 6.2 g/dL (6.4-8.2)
--- NOTE | 2023-11-16 13:00 | ST.MBS_ITS ---
Date of Service Date of service: 11/16/23 Time of Service: 13:00 Modified Barium Swallow Study Findings: Video fluoroscopic Swallowing Evaluation (VFSE) / Modified Barium Swallow Study (MBSS) Speech Language Pathology Report Patient referred for VFSE/MBSS from Dr. Dillard given acute on chronic dysphagia with FTT requiring hospitalization and urgent G tube placement. 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 Date of this initial cancer is unknown; patient suspects 15-20 years ago. There is also a note hx diagnosed L VF paralysis in last PRODUCT SAFETY AND STANDARDS ENGINEER note in 12/2021. He reports he has never had a feeding tube to date. Last known MBSS was in December 2021 at [facility]. This revealed overt silent aspiration both during swallow onset and after swallow onset from pyriform sinus residue with most consistencies (liquids > solids). He was instructed to complete a head turn to the left and throat clear/re-swallow for every consistency. He was also encouraged to follow up with outpatient PRODUCT SAFETY AND STANDARDS ENGINEER for trial of respiratory muscle strength training, though it does not appear there was follow through with this. Currently, Vin presents with >25lb weight loss across the past month. He reports his dysphagia has been 'bad since the get-go' and doesn't necessarily feel it has gotten worse, though acknowledges he is not able to eat/drink very much and that it has become more fatiguing to do so. He did recall the strategy to turn head to left/throat clear and re-swallow, and is still doing this when he eats/drinks. Due to progressive weight loss resulting in FTT, a G tube was placed laparoscopically by surgery this admit due to inability to pass scope past UES for PEG placement. MBSS now being completed to determine dysphagia prognosis, and to advice on safety of pleasure/comfort PO intake. IMPRESSIONS: Profound oral-pharygoesophageal dysphagia with minimal to no pharyngeal clearance and consistent aspiration across liquid and puree consistencies. L head turn/tuck was somewhat effective to achieve gradual clearance for lliquids and puree, but remained with aspiration throughout. With thick liquid, patient was able to cough/throat clear and re-swallow effectively to clear most aspirated materials. Cough/clear was however ineffective to adequately clear thin liquid. Swallow safety is profoundly impaired; swallow efficiency is profoundly impaired. Physiologic deficits Absent or minimal: anterior hyoid movement pharyngeal wall movement epiglottic inversion UES distension glottal closure (suspected, not visualized) Reduced: laryngeal elevation lingual stripping tongue base retraction velar elevation ? Swallow prognosis is guarded given: Severity, Relative dose of Chemotherapy and/or radiation treatment, Surgical/anatomical factors, Lack of preservation of pharyngeal motility and pending patient/caregiver training in risk management as outlined, including use of trialed compensatory strategies. Patient appears to be a good candidate for behavioral swallow rehabilitation, pending goals of care. Specialist referrals:? ENT, RD ? RECOMMENDATIONS: Recommendations Diet: NPO with continued alternative means of enteral nutrition (G tube) Other: [place] Free Water Protocol: small sips of thin water and ice chips AFTER thorough oral care is completed. Medications: Via tube Risk Management: Oral care Q3h using suction swab kits Therapeutic Trials: Recommend therapeutic/strategy training PO trials WITH PRODUCT SAFETY AND STANDARDS ENGINEER ONLY at bedside, pending patient's preferences for comfort/pleasure PO intake. Consistency: Mildly Thick Liquids VERY SMALL sips with L head turn / Chin tuck Perform immediate throat clear after every swallow 5-6 secondary swallows/throat clears per sip PLAN: Therapy: Recommend subsequent session with PRODUCT SAFETY AND STANDARDS ENGINEER to review results of today's exam and develop treatment plan as appropriate. May consider the following: Further Training/Education in Risk Management, Safety strategies, Further Counseling re: Options for maintaining quality of life in context of dysphagia presentation Goals: High Risk Case Manager Goals: Patient will remain free from aspiration-related illness, malnutrition, and dehydration. Short Term Goals: Patient will tolerate Puree Diet and Thin liquids without overt s/s aspiration across 2/2 visits. DISCONTINUED PER MBSS RESULTS Patient will participate in MBSS. GOAL MET Patient will verbalize understanding of current aspiration risk, MBSS results, risk management strategies. WILL INITIATE Patient will demonstrate accurate use of compensatory safety strategies for conservative pleasure feeds of mildly thick liquids x 2-3 sessions within 1 week. WILL INITIATE ----- OBJECTIVE Videofluoroscopic Swallow Evaluation (VFSE/MBSS) was conducted in the lateral projection by Speech-Language Pathologist, in collaboration with Radiologist, to evaluate oropharyngeal swallow function. Anatomic view under fluoroscopy: Noting post-surgical changes, reduced tongue bulk as below: Noting no obvious appearance of CP/UES structural changes, but with reduced distension: PO Barium Contrast Trials Oral barium water-soluble contrast was administered as follows: IDDSI Level 0 Varibar thin liquid (40% w/v) IDDSI Level 2 Varibar nectar thick/mildly thick liquid (40% w/v) IDDSI Level 4 Varibar pudding/pureed/extremely thick (40% w/v) MBSImP Component Scores: 3 COMPONENT Scale SCORE 1 Lip closure (0-4) 1 Resulted in interlabial escape, without progression to anterior lip 2 Hold Position (0-3) 1 Allowed bolus escape to lateral buccal cavity/floor of mouth 3 Bolus Preparation (0-4) NA 4 Bolus Transport (0-4) 3 Was with repetitive/ disorganized motion of the tongue 5 Oral Residue (0-4) 2 Was a collection on oral structures 6 Swallow Initiation (0-4) 3 Occurred when the bolus head was in the pyriform sinuses 7 Soft Palate Elevation (0-4) 1 Allowed a trace column of contrast or air between soft palate and pharyngeal wall 8 Laryngeal Elevation (0-3) 2 Was incomplete, with minimal superior movement of thyroid cartilage with minimal approximation of arytenoids to epiglottic petiole 9 Anterior Hyoid Motion (0-2) 2 Demonstrated no anterior movement 10 Epiglottic Movement (0-2) 2 Resulted in no inversion 11 Laryngeal Closure (0-2) 2 Was non-existent with a wide column of air/contrast in laryngeal vestibule 12 Pharyngeal Stripping Wave (0-2) 2 Was absent 13 Pharyngeal Contraction (0-3) NA 14 PES Opening (0-3) 3 Yielded no distension with total obstruction of flow 15 Tongue Base Retraction (0-4) 2 Allowed a narrow column of contrast or air between the retracted tongue base and the posterior pharyngeal wall 16 Pharyngeal Residue (0-4) 4 Resulted from minimal to no pharyngeal clearance 17 Esophageal Clearance (0-4) NA Results: 3 COMPONENT Scale SCORE 1 Oral Score (0-18) 9 2 Pharyngeal Score (0-29) 20 3 Esophageal Score (0-4) 0 Penetration-Aspiration Scale: 3 COMPONENT Scale SCORE 1 Thin liquid (1-8) 8 Contrast entered the airway, passed below the vocal folds, and no effort was made to eject. 2 Vesper thick (1-8) 8 Contrast entered the airway, passed below the vocal folds, and no effort was made to eject. 3 Honey thick (1-8) NA 4 Pudding thick (1-8) 8 Contrast entered the airway, passed below the vocal folds, and no effort was made to eject. 5 Cookie (1-8) NA DIGEST: 3 COMPONENT Scale SCORE 1 Thin Max PAS (1-8) 8 Contrast entered the airway, passed below the vocal folds, and no effort was made to eject. 2 Vesper Max PAS (1-8) 8 Contrast entered the airway, passed below the vocal folds, and no effort was made to eject. 3 Honey Max PAS (1-8) NA 4 Liquid Max PAS (1-8) 8 Maximum PAS Score over all liquid trials 5 Liquid Max Residue (0-3) 3 above 90% 6 Pudding Max PAS (1-8) 8 Contrast entered the airway, passed below the vocal folds, and no effort was made to eject. 7 Pudding Max Residue (0-3) 3 above 90% 8 Cracker Max PAS (1-8) NA 9 Cracker Max Residue (0-3) NA 10 Frequency if PAS >= 3 (0-3) 3 Chronic (50% or more of thin liquid trails and/or more than one consistency) 11 Amount if PAS >= 5 (0-1) 0 Not gross Results: 3 COMPONENT Scale SCORE 1 SAFETY GRADE (0-4) 3 Safety grade for swallowing based on patterns of aspiration or laryngeal penetration 2 EFFICIENCY GRADE (0-4) 4 Efficiency grade of swallowing based on patterns of pharyngeal residue 3 DIGEST (0-4) 4 Severity grade of pharyngeal dysphagia: 0 - Normal, 1 - Mild, 2 - Moderate, 3 - Severe, 4 - Life threatening 4 Max Exam PAS (1-8) 8 Maximum PAS Score over all bolus trials 5 Max Exam Residue (0-3) 3 Maximum Exam Residue over all bolus trials Trialed Compensatory Strategies & Outcome: 3 Maneuvers Successful(+) Unsuccessful(-) Postures Successful(+) Unsuccessful(-) 3 second Preparatory Set? ? Chin Tuck Posture? ? Cough? ? Posterior Head tilt? Reflexive? Cued? +? ? ? Throat Clear? ? Head Tilt to? Reflexive? Left? Cued? ?+ ? Right? ? Saliva swallow? ?+ Head Turn/Rotate to? ? Supraglottic Swallow?? ?+ ? Left? (with chin tuck) ?+ Super-supraglottic Swallow? Right? ? 3 Bolus Modifications Successful(+) Unsuccessful(-) Delivery/Alternating Consistencies - ? Follow with Liquid Wash - ? Follow with Solid Bolus? Delivery/Via Straw? ? Reduced Volume? ? Reduced Rate of Intake? ? Increased Viscosity? ?+ Other:?? ? Thank you for allowing us to take part in this patient's care. Please feel free to contact the [facility] Speech Language Pathology Department with any questions/concerns.
[2023-11-16] MEDS: Barium Sulfate 81% w/w for Oral Suspension 148 GM BTL PO (13:54)
[2023-11-16] MEDS: Barium Sulfate Oral Paste 40% W/V 230 ML TUBE PO (13:55)
[2023-11-16] MEDS: Barium Sulfate 40% W/V 240 ML BTL PO (13:56)
--- NOTE | 2023-11-16 14:48 | NUR.NOTE ---
Nursing Note: after barium swallow was complete asked about resuming tube feeding, asked CC for clarity on tube feeding rate and free water rate, per provider no tube feeding ATT
[2023-11-16 15:42] VITALS: BP 130/85; PULSE 59; RESP 18; TEMP 35.5; O2SAT 98
[2023-11-16] MEDS: Enoxaparin 40 MG/0.4 ML SYR SC (17:55)
[2023-11-16 19:42] VITALS: BP 148/72; PULSE 68; RESP 18; TEMP 36.3; O2SAT 97
[2023-11-16] MEDS: Mirtazapine 15 MG TAB NG (21:45)
[2023-11-17] VITALS (7 sets, daily range): BP systolic 108–150; BP diastolic 66–83; PULSE 54–69; RESP 16–20; TEMP 35.4–36; O2SAT 95–99
[2023-11-17] MEDS: Levothyroxine 100 MCG TAB NG (05:43)
[2023-11-17 06:44] LABS: Abs Immature Grans 0.03 10^3/uL (0.0-0.06); Absolute Basophil Count 0.01 10^3/uL (0.0-0.2); Absolute Eosinophil Count 0.02 10^3/uL (0.0-0.7); Absolute Lymphocyte Count 1.78 10^3/uL (1.2-3.4); Absolute Monocyte Count 0.76 10^3/uL (0.1-0.8); Absolute Neutrophil Count 4.73 10^3/uL (1.2-6.7); Basophils % 0.1; Eosinophils % 0.3; HCT 44.1 % (40.0-50.0); HGB 13.9 g/dL (13.5-17.5); Immature Grans % 0.4; Lymphocytes % 24.3; MCH 25.1 pg (27.0-33.0); MCHC 31.5 % (32.0-36.0); MCV 80 fL (80-95); MPV 10.4 fL (8.0-11.0); Monocytes % 10.4; Neutrophils % 64.5; Platelet Count 216 10^3/uL (130-400); RBC 5.53 10^6/uL (4.36-5.78); RDW 15.5 % (11.8-14.1); RDW-SD 43.1 fL; WBC 7.33 10^3/uL (4.4-10.8)
[2023-11-17] MEDS: Sucralfate 1 GM TAB NG ×4 (07:28→20:13)
[2023-11-17] MEDS: Cyanocobalamin 500 MCG TAB 1000 MCG NG (08:44)
[2023-11-17] MEDS: Normal Saline Flush 10 ML SYR IVP ×2 (08:44→20:14)
[2023-11-17] MEDS: methylPREDNISolone SUCC 40 MG VIAL IVP (08:44)
[2023-11-17] MEDS: Magnesium Oxide 400 MG TAB NG ×2 (08:44→20:13)
[2023-11-17] MEDS: Thiamine 100 MG TAB PO (08:44)
--- NOTE | 2023-11-17 09:21 | PGE_ITS ---
Date of Service Date of service: 11/17/23 Time of Service: 11:28 Assessment and Plan Assessment and plan (1) Aspiration pneumonia: Status: Acute Assessment and plan: -initial CXR did not show the infiltrates but CT chest done 11/08 demonstrated bilateral basilar infiltrates most prominent in RLL and RML but also LLL, clinically he is improving on cefepime (day #7, begun 11/09) doxycycline (d#8, begun 11/08), however did have one day of Unasyn (11/07) -continue bronchodilators, antibiotics (treat for 5 to 7 day total), he is doing well and not requiring supplemental oxygen but remains high risk of aspiration -As he is afebrile and without increased oxygen needs he seems to be recovering well from his pneumonia. -will give him one or two more days of antibiotics but I think after 7 days he should be finished w/ his antibiotics even though his CT scan or CXR may lag behind. Qualifiers: Aspiration pneumonia type: due to gastric secretions Laterality: bilateral Lung location: lower lobe of lung Qualified Code(s): J69.0 - Pneumonitis due to inhalation of food and vomit (2) Dysphagia: Status: Acute Assessment and plan: -HOROLOGIST APPRENTICE requested he be NPO as she was concerned that dietary may send up more than just water. -MBS today showed profound dysphagia likely secondary to chemo/radiation therapy -patient is to remain NPO indefinitely, though could chose to work with Speech Therapy as an outpatient to possibly work towards pleasure intake Qualifiers: Dysphagia type: oropharyngeal phase Qualified Code(s): R13.12 - Dysphagia, oropharyngeal phase (3) Failure to thrive in adult: Status: Acute Assessment and plan: -as above (4) Oral cancer: Assessment and plan: -S/p resection/XRT/chemo. -Now with dysphagia and severe weight loss. -C/s speech therapy and palliative care. (5) Alcoholism: Status: Resolved Assessment and plan: -The patient no longer drinks. (6) Malnutrition: Status: Acute Assessment and plan: -nutritional consult in chart regarding his tube feedings. -to prevent refeeding syndrome, we have decreased his tube feeds which is Nutren 2.0 to half the rate he was at this morning from 20 mL/hr down to 10 mL/hr and will decrease the rate of increase to 5 mL/hr every 12 hours instead of every 8 hr. Will continue to monitor electrolytes and LFT and lipids daily. Qualifiers: Malnutrition type: protein-calorie malnutrition Protein-calorie malnutrition severity: severe Qualified Code(s): E43 - Unspecified severe p rotein-calorie malnutrition (7) Oral candidiasis: Status: Acute Assessment and plan: -day #8 of 10 days of Fluconazole (had 5 days of iv fluconazole and changed to enteral liquid form yesterday (8) DVT prophylaxis: Status: Acute Assessment and plan: -Enoxaparin SC (9) Discharge planning issues: Status: Acute Assessment and plan: -DNR/DNI -will continue hospitalization until he is tolerating his tube feedings then home w/ HH services to monitor his feedings and labs Subjective Subjective Interval history since last seen: Patient states that he is doing well today and understands that he will be discharged home with home health services tomorrow, 11/18/2023. Exam Narrative Exam Narrative: Patient laying in bed in no acute distress, ANO x 4, heart regular rhythm, lungs clear to auscultation bilaterally, abdomen G-tube in place without surrounding erythema redness or drainage Objective Last Vital Signs Temp 95.7 F L 11/17/23 08:56 Pulse 59 L 11/17/23 08:56 Resp 16 11/17/23 08:56 BP 142/76 H 11/17/23 08:56 Pulse Ox 97 11/17/23 08:56 Laboratory Results - last 24 hr 11/16/23 11/16/23 11/17/23 05:50 11:47 06:30 WBC 7.33 RBC 5.53 Hgb 13.9 Hct 44.1 MCV 80 MCH 25.1 L MCHC 31.5 L RDW 15.5 H Plt Count 216 MPV 10.4 Immature Gran % 0.4 Neutrophils % 64.5 Lymphocytes % 24.3 Monocytes % 10.4 Eosinophils % 0.3 Basophils % 0.1 Nucleated RBC % 0.0 Absolute Neutrophils 4.73 Absolute Lymphocytes 1.78 Absolute Monocytes 0.76 Absolute Eosinophils 0.02 Absolute Basophils 0.01 Sodium 131 L Potassium 3.5 Chloride 97 L Carbon Dioxide 27.3 Anion Gap 6.7 BUN 16 Creatinine 0.7 Est GFR (CKD-EPI 2020) 105.49 Glucose 85 Calcium 8.8 Total Bilirubin 0.4 AST 28 ALT 31 Alkaline Phosphatase 132 H Total Protein 6.2 L Albumin 2.3 L Add-On Test Request DONE Time Spent with Patient Time Spent with Patient: >50 minutes Time was spent: preparing to see the patient(eg.review tests), obtaining and/or reviewing separately otained hiistory, ordering medications,tests, procedures, referring, communicating with other health career guidance technician, indepentently interpreting results, counseling the patient and care coordination
[2023-11-17 09:44] LABS: ALT 29 U/L (16-63); AST 26 U/L (15-37); Albumin 2.3 g/dL (3.4-5.0); Alkaline Phosphatase 128 U/L (46-116); Anion Gap 7.1 mmol/L (3-11); BUN 18 mg/dL (7-18); Bilirubin, Total 0.4 mg/dL (0.2-1.0); CO2 29.9 mmol/L (21.0-32.0); CREATININE 0.8 mg/dL (0.70-1.30); Calcium 8.9 mg/dL (8.5-10.1); Chloride 98 mmol/L (98-107); Estimated GFR 101.32 (mL/min/1.73m2); Glucose 99 mg/dL (74-106); Potassium 3.4 mmol/L (3.5-5.1); Sodium 135 mmol/L (136-145)
--- NOTE | 2023-11-17 09:53 | W.NUTRFU ---
Date of service: 11/17/23 Time of Service: 09:53 Nutrition Note NOTE: Mr. Lopes has been at his initial goal for continuous enteral feedings of 22mL/hr with Nutren 2.0 formula for more for 24 hours (pt was mpo for about 12 hours yesterday for MBS) - water flushes have been 30mL [id number]. Phos and Mag came back this morning looking wnl. Sodium is 135 but improved over the last 3 days - water flushes might have been diluting for a bit. Potassium is 3.4 At this time I think it would be prudent to think about transitioning pt to bolus feeds to ready for discharge, as this will most likely be the avenue of administration once home with Sunitha Aguiar RDN from [facility] overseeing the progression of his enteral feedings - suggest home health be involved for enteral feeding education for any caregivers involved. Would recommend continue Nutren 2.0 as he has demonstrated toleration of this formula. would recommend working up to goal of 75mL q 2hours x 14 hours/day. Start at 25mL q 2hours with increase of 5mL q 8 hours until @ goal. Once at goal rate, would recommend increasing daily amount by 100-150mL per day. Sunitha Aguiar RDN from [facility] will oversee his outpt enteral feedings to get him to a goal rate for slow and steady wt gain. Time Spent in Nutritional Counseling and Treatment: 0
[2023-11-17 09:55] LABS: Magnesium 1.8 mg/dL (1.8-2.4); PHOSPHORUS 2.7 mg/dL (2.6-4.7)
--- NOTE | 2023-11-17 10:25 | CMPROGNOTE_ITS ---
Date of service: 11/17/23 Time of Service: 10:25 Care Management Progress Note Progress Note Text Progress Note Text: S/O: CM met with Jennifer to review discharge plan-due to medical questions, Dr. Rodriguez joined the conversation. CM also supported Jennifer in completing FMLA paperwork and reviewed discharge plan with [facility]. [facility] delivery scheduled for this evening, Jennifer will be home to collect. CM spoke with Diana at [facility], to review plan for Vin to discharge at 1000 and have home health RN and admission at 1100 at his home. CM continues to follow and support discharge planning. A: Vin is a 58 year old male admitted to [facility] on 11/07/23 with acute bronchitis, dysphagia, FTT. P: Vin will return home with his sister once medically cleared. CM coordinated orders through [facility] for enteral nutrition and [facility] RN/ST/PT for discharge. He will continue to be followed by Palliative Care: [facility] as well. CM will continue to follow. Vin will continue to be followed by outpatient nutrition at [facility]: Sunitha Aguiar RDN, LDN, MS Clinical Oncology Dietitian [email or web address] ?[facility]? SDOH(Care Management) Screening Will the Patient Participate in the Screening?: Unable to obtain Do you worry about having a steady place to live?: yes In the past 12 months, have you had to go without electric, gas, oil or water in your home?: no Have you or anyone in your house had to go without enough food to eat?: no Has lack of transportation kept you from medical appointments or from doing things needed for daily living?: no Has anyone in your support network made you feel unsafe for any reason?: yes Health Related Social Needs Health related social needs: housing instability, housed, with risk of homelessness(Z59.811) and problem related to primary support group(Z63.9)
--- NOTE | 2023-11-17 11:40 | PCPN_ITS ---
Date of service: 11/17/23 Time of Service: 11:00 Assessment and Plan Assessment and plan (1) Palliative care patient: Status: Acute Assessment and plan: PC will continue close outpatient monitoring. will do f/u TH on Wed, w/plan for HV if schedule availability (2) G tube feedings: Status: Acute Assessment and plan: now tolerating 22mL/hr rate w/no issues, up from 10mL earlier this week plan for discharge home tomorrow w/all supplies delivered to home; will get feed tube teaching tomorrow, Sissy w/FMLA paperwork completed to assist in care (3) Aspiration pneumonia: Status: Acute Assessment and plan: completed abx cough consistent, no acute changes, able to clear secretions aware of high aspiration risk w/any PO intake Qualifiers: Aspiration pneumonia type: due to gastric secretions Laterality: bilateral Lung location: lower lobe of lung Qualified Code(s): J69.0 - Pneumonitis due to inhalation of food and vomit (4) DNR (do not resuscitate): Status: Acute (5) Malnutrition: Status: Acute Assessment and plan: severe, chronic now with feeding tube continue to monitor Qualifiers: Malnutrition type: protein-calorie malnutrition Protein-calorie malnutrition severity: severe Qualified Code(s): E43 - Unspecified severe protein-calorie malnutrition (6) Failure to thrive in adult: Status: Acute Assessment and plan: see above recommend consider PT eval prior to discharge for home safety; nursing to see ho w he tolerates walking today (7) Dysphagia: Status: Acute Assessment and plan: profound SQUARE DANCE CALLER f/u outpatient - on Home Health order? Qualifiers: Dysphagia type: oropharyngeal phase Qualified Code(s): R13.12 - Dysphagia, oropharyngeal phase (8) Head and neck cancer: Assessment and plan: f[place] w[place] [place] w/h/o resection L neck; 2 rounds chemo/radiation leading to dysphagia, malnutrition and FTT (9) ACP (advance care planning): Status: Acute Assessment and plan: reviewed discharge plan reviewed feed tubes, nutritional components, how this takes time to see if working. If he, at any time, feels he is no longer interested in tube feedings may consider stopping these, and he would want to go on hospice at that time reviewed aspiration risk and pleasure eating; PC to support whichever choices J immy makes, he appears comfortable w/risk of aspiration if he is enjoying food - would be a sign for hospice admission f[place] w[place], esophageal dilation to be decided by [facility] [place] reviewed PC to follow w/HV and TH as needed, close follow up for acute changes in GOC spent 12 mins w/ACP Subjective Subjective Interval history since last seen: Vin has tolerated tube feedings since G tube placement on ; has increased rate up to 22mL/hr today, tolerating well; no concerns at this time; plan for discharge home tomorrow at 10am - MBSS: profound dysphagia, aspiration w/liquid and pudding, SQUARE DANCE CALLER recommending NPO, concern/debate around pleasure eating, would want to see f/u w/outpatient nutrition for determining this - rescheduled w/[facility] for 11/21 - per staff he has been able to get up and take minimal steps; will consider PT evaluation today pending how he tolerates getting out of bed; his sister told staff he will not need to do stairs to get into home - [place] paperwork signed for Sissy for 3-6mos - order placed, plan to be at home for 11a tomorrow Vin continues to feel pretty defeated. everything hits all at once. He is aware of the plan for discharge home tomorrow with tube feedings, he is not feeling optimistic, but willing to go along with plan. He would really like to be able to eat, and would wondering eating when no longer in hospital. He is aware that the MBSS did show that he was not able to safely swallow liquids or pudding without aspiration. He continues to tolerate intermittent sips of water. He feels comfortable with current walking abilities to get home safely. Has a cane. No changes in cough, remains the same, able to clear secretions. Denies pain, abdominal discomfort or nausea. He will be taught how to use his new feeding tube prior to discharge, he is aware he will need help. Exam Narrative Exam Narrative: General: thin, cachecix man, lying in dark room in bed; AAOx3 HEENT: atraumatic, normocephalic, hearing grossly WNL Resp: regular respiratory effort and rate, speaks full sentences w/no SOB, no audible wheeze; Psych: cooperative, fatigued, sad; thought process clear, judgment/insight limited Objective Last Vital Signs Temp 95.7 F L 11/17/23 11:18 Pulse 60 11/17/23 11:18 Resp 16 11/17/23 11:18 BP 146/77 H 11/17/23 11:18 Pulse Ox 96 11/17/23 11:18 Laboratory Results - last 24 hr 11/16/23 11/16/23 11/17/23 05:50 11:47 06:30 WBC 7.33 RBC 5.53 Hgb 13.9 Hct 44.1 MCV 80 MCH 25.1 L MCHC 31.5 L RDW 15.5 H Plt Count 216 MPV 10.4 Immature Gran % 0.4 Neutrophils % 64.5 Lymphocytes % 24.3 Monocytes % 10.4 Eosinophils % 0.3 Basophils % 0.1 Nucleated RBC % 0.0 Absolute Neutrophils 4.73 Absolute Lymphocytes 1.78 Absolute Monocytes 0.76 Absolute Eosinophils 0.02 Absolute Basophils 0.01 Sodium 131 L Potassium 3.5 Chloride 97 L Carbon Dioxide 27.3 Anion Gap 6.7 BUN 16 Creatinine 0.7 Est GFR (CKD-EPI 2020) 105.49 Glucose 85 Calcium 8.8 Phosphorus Magnesium Total Bilirubin 0.4 AST 28 ALT 31 Alkaline Phosphatase 132 H Total Protein 6.2 L Albumin 2.3 L Add-On Test Request DONE 11/17/23 09:23 WBC RBC Hgb Hct MCV MCH MCHC RDW Plt Count MPV Immature Gran % Neutrophils % Lymphocytes % Monocytes % Eosinophils % Basophils % Nucleated RBC % Absolute Neutrophils Absolute Lymphocytes Absolute Monocytes Absolute Eosinophils Absolute Basophils Sodium 135 L Potassium 3.4 L Chloride 98 Carbon Dioxide 29.9 Anion Gap 7.1 BUN 18 Creatinine 0.8 Est GFR (CKD-EPI 2020) 101.32 Glucose 99 Calcium 8.9 Phosphorus 2.7 Magnesium 1.8 Total Bilirubin 0.4 AST 26 ALT 29 Alkaline Phosphatase 128 H Total Protein 6.0 L Albumin 2.3 L Add-On Test Request
--- NOTE | 2023-11-17 17:13 | W.SPSTP ---
Date of service: 11/17/23 Time of Service: 16:30 Erin Banuelos was contacted at bedside this date to review findings and recommendations from yesterday's MBSS and complete motivational interviewing and strategy training. Objective/Assessment/Plan Objective Treatment Techniques & Outcomes: Residential Goals: Patient will remain free from aspiration-related illness, malnutrition, and dehydration. Short Term Goals: Patient will tolerate Puree Diet and Thin liquids without overt s/s aspiration across 2/2 visits. DISCONTINUED PER MBSS RESULTS Patient will participate in MBSS. GOAL MET Patient will verbalize understanding of current aspiration risk, MBSS results, risk management strategies. GOAL MET 11/17/23; Reviewed findings of MBSS including NPO recommendations with alternative means of nutrition for foreseeable future, with option for therapeutic/comfort trials of thickened liquids with strategies in place. Patient verbalizes that he understands any PO intake comes with risk of pulmonary complications/infection, but there are mitigation strategies (oral care, physical activity, [place] Free[place] protocol, safe swallow strategies, and conservative intake of thickened liquids with safe swallow strategies in place as outlined below). Patient will demonstrate accurate use of compensatory safety strategies for conservative pleasure feeds of mildly thick liquids x 2-3 sessions within 1 week. IN PROGRESS: Met x1 session this date PO trials: Mildly thick liquids x4 small sips via straw Patient practiced head turn/tuck to L with immediate throat clear and reswallow x4-5 per sip, with mod cueing fading to min cueing. Thorough oral care performed before and after trials. Assessment Session focused on review of MBSS findings, current LOF and risks with PO intake. Patient verbalizes understanding of current dilemma he is facing (no PO beyond FFW intake for maximum safety, vs conservative trials with strategies for mitigated risk, vs PO intake per patient preference for QOL with acceptance of pulmonary risk). Discussed options for MOISTURE CONDITIONER OPERATOR to continue working with him (HH vs Outpatient) on safety strategies and strengthening, though prognosis is guarded given severity of deficits. Patient states that he feels quite discouraged over the options, and will continue to think about his options and work with palliative. He feels conservative intake of thick liquids as practiced this date is not really worth it, to him. MOISTURE CONDITIONER OPERATOR providing supportive listening. He does seem to understand the implications of choosing to take PO diet more freely in addition to tube feedings, and considers to weigh his options. He would like to see what ENT at [facility] has to say. PLAN: MOISTURE CONDITIONER OPERATOR will continue to follow while inpatient as able up to 3x weekly to continue to reinforce education and practice safe intake of thick liquids. DISCHARGE RECOMMENDATIONS: HH MOISTURE CONDITIONER OPERATOR vs OUTPATIENT MOISTURE CONDITIONER OPERATOR, if patient chooses. If he is able to build some weight and strength back and is very interested in a strengthening program, could be a candidate for oral-pharyngeal strengthening HEP with MOISTURE CONDITIONER OPERATOR, however, patient would need to have strong buy-in for intensive rehab. Recommendations Diet: NPO with continued alternative means of enteral nutrition (G tube) Other: [place] Free Water Protocol: small sips of thin water and ice chips AFTER thorough oral care is completed. Medications: Via tube Risk Management: Oral care Q3h using suction swab kits Therapeutic Trials: Recommend therapeutic/strategy training PO trials WITH MOISTURE CONDITIONER OPERATOR ONLY at bedside, pending patient's preferences for comfort/pleasure PO intake. Consistency: Mildly Thick Liquids VERY SMALL sips with L head turn / Chin tuck Perform immediate throat clear after every swallow 5-6 secondary swallows/throat clears per sip Recommendations Total Time Spent: 35 minutes: 16:30-17:05
[2023-11-17] MEDS: Enoxaparin 40 MG/0.4 ML SYR SC (17:33)
[2023-11-17] MEDS: Mirtazapine 15 MG TAB NG (20:13)
[2023-11-18 04:22] VITALS: BP 148/83; PULSE 70; RESP 14; TEMP 36.6; O2SAT 99
[2023-11-18] MEDS: Levothyroxine 100 MCG TAB NG (06:19)
[2023-11-18 06:46] LABS: ALT 29 U/L (16-63); AST 22 U/L (15-37); Albumin 2.5 g/dL (3.4-5.0); Alkaline Phosphatase 127 U/L (46-116); Anion Gap 8.3 mmol/L (3-11); BUN 17 mg/dL (7-18); Bilirubin, Total 0.5 mg/dL (0.2-1.0); CO2 26.7 mmol/L (21.0-32.0); CREATININE 0.6 mg/dL (0.70-1.30); Calcium 8.8 mg/dL (8.5-10.1); Chloride 99 mmol/L (98-107); Estimated GFR 110.51 (mL/min/1.73m2); Glucose 113 mg/dL (74-106); Magnesium 1.9 mg/dL (1.8-2.4); PHOSPHORUS 2.8 mg/dL (2.6-4.7); Potassium 3.5 mmol/L (3.5-5.1); Sodium 134 mmol/L (136-145); Total Protein 6.3 g/dL (6.4-8.2)
--- NOTE | 2023-11-18 07:08 | DSE_ITS ---
Date of service: 11/18/23 Time of Service: 07:37 DS: Diagnosis Discharge Diagnosis (1) Aspiration pneumonia: Status: Acute Asessment and Plan: - Show x-ray did not show infiltrates head CT on 226 showed bilateral basilar infiltrates mainly in the right lower lobe and right middle and left lower lobe lobe -Patient completed course of cefepime and doxycycline (2) G tube feedings: Status: Acute Asessment and Plan: - Patient now postop day 6 after G-tube placement -He was monitored on his G-tube feeds for refeeding syndrome electrolytes are all within normal limits on day of discharge -Patient has had G-tube solution and equipment delivered to his home and has home health services set up for day of the (3) DNR (do not resuscitate): Status: Acute (4) Malnutrition: Status: Acute (5) Failure to thrive in adult: Status: Acute (6) Dysphagia: Status: Acute Asessment and Plan: -BIOMETRIC SCREENER requested he be NPO as she was concerned that dietary may send up more than just water. -MBS showed profound dysphagia likely secondary to chemo/radiation therapy -patient is to remain NPO indefinitely, though could chose to work with Speech Therapy as an outpatient to possibly work towards pleasure intake (7) Head and neck cancer: Discharge Plan Disposition Patient Disposition: Home W/Home Health Services Condition: Good Discharge Details Reason For Visit: CAP vs Aspiration Pneumonitis Admit Date/Time: 11/09/23 13:10 Admit Provider: Alea Cade Attending Provider: Alea Cade Primary Care Provider: ElizabethMonserrat [facility] Course Hospital Course: Patient initially presented with dysphagia and failure to thrive secondary to poor p.o. intake from chemotherapy and radiation from head and neck cancer. Patient also was treated for aspiration pneumonia. He had G-tube placed on admission and was monitored for refeeding syndrome while G-tube feeds were adjusted. Ultimately, patient completed treatment for aspiration pneumonia, and had a modified barium swallow study that showed significant esophageal dysmotility due to chemotherapy and radiation and recommended patient remain NPO. Ultimately, patient's tube feeds were set up at home as well as home health and was determined that he was stable for discharge. Home Meds and New Rx's Prescriptions: New sucralfate 1 gram Tablet 1 g NG AC & HS Qty: 90 0RF levothyroxine 100 mcg Tablet 100 mcg NG DAILY@0600 Qty: 90 0RF magnesium oxide 400 mg (241.3 mg magnesium) Tablet 400 mg NG BID Qty: 90 0RF Phospha 250 Neutral 250 mg Tablet 1 tab J-tube QID Qty: 120 0RF Continued acetaminophen [Mapap Extra Strength] 500 MG tablet 1,000 mg PO Q8H PRN0RF pantoprazole 40 MG tablet,delayed release (DR/EC) 40 mg PO BID@729,1999 Qty: 60 0RF Patient Comments: 03/03/16 Pt states he only takes in am. PG chlorhexidine gluconate 0.12 % mouthwash 15 ml PO .COMPLEX Patient Comments: RINSE WITH 15ML BY MOUTH 5 TIMES A DAY Rx Instructions: 15 mL orally fivr times a day; mirtazapine 15 mg tablet,disintegrating 15 mg translingual HS Patient Comments: DISSOLVE ONE TABLET BY MOUTH AT BEDTIME Discontinued spironolactone 25 MG tablet 25 mg PO DAILY Qty: 30 0RF magnesium oxide [MagOx] 400 MG tablet 400 mg PO BID Qty: 60 0RF levothyroxine 100 mcg tablet 100 mcg PO ONCE Patient Comments: TAKE ONE TABLET BY MOUTH ONCE DAILY sucralfate 1 gram tablet 1 g PO QID Patient Comments: TAKE ONE TABLET BY MOUTH FOUR TIMES A DAY (MORNING, NOON, EARLY EVENING AND AT BEDTIME) Discharge Instructions Referrals: Jerome King [ NON-[facility] STAFF PHYSICIAN] - 11/22/23 11:00 am (Made by [facility]) Activity:: Activity as Tolerated Equipment/Supplies:: No Equipment Needed Diet:: Other Discharge Orders Discharge Orders: Discharge Order (Routine); Ordered 11/18/23 Ordered By: Melo Rodrgiuez DS: Summary Time Spent with Patient providing and/or coordinating discharge services: Greater than 30 minutes Status at Discharge Functional status at discharge: independent ambulation Overall status at discharge: patient is back to baseline Mental Status: mental status grossly normal Speech and Movement: speech and movement normal Mood: congruent mood Affect: normal affect Quality:SDOH Health Related Social Needs: Health related social needs risk of homeless, personal safety Exam Narrative Exam Narrative: Patient laying in bed in no acute distress, ANO x 4, heart regular rhythm, lungs clear to auscultation bilaterally, abdomen G-tube in place without surrounding erythema redness or drainage Psych Mental Status: mental status grossly normal Speech and Movement: speech and movement normal Mood: congruent mood Affect: normal affect DS: Data Vitals/I&O Vitals and I&O: Vital Signs Temperature 97.9 F 11/18/23 04:22 Temperature Source Tympanic 11/18/23 04:22 Pulse 70 11/18/23 04:22 Pulse Rhythm Regular 11/18/23 04:01 Respiratory Rate 14 11/18/23 04:22 Respiratory Effort Normal, Non-Labored 11/18/23 04:01 Respiratory Depth Normal 11/18/23 04:01 Respiratory Pattern Normal 11/18/23 04:01 Blood Pressure 148/83 H 11/18/23 04:22 Blood Pressure Position Sitting 11/07/23 11:43 Pulse Oximetry 99 11/18/23 04:22 Respiratory End-tidal CO2 30 11/11/23 16:50 Oxygen Delivery Method Room Air 11/18/23 04:22 Oxygen Flow Rate 0 11/18/23 04:22 Pain Level 0 11/17/23 23:05 Comment RN informed of VS 11/15/23 22:51 Intake & Output 11/17/23 11/18/23 11/18/23 17:59 05:59 17:59 Intake Total / 20 462 / 482 Output Total 700 / 700 270 / 970 Balance -680 / -680 192 / -488 Weight 90 lb 9.76 oz Intake: IV Intake, Tube Feeding Amount 462 / 462 Output: Urine 700 / 700 270 / 970 Other: Urine Color Straw Yellow Urine Appearance Clear Clear Urine Odor None Voiding Methods Urinal Urinal Data Completed and Pending Labs on day of discharge: Labs from last 24 hours 11/18/23 11/17/23 06:19 09:23 Sodium 134 L 135 L Potassium 3.5 3.4 L Chloride 99 98 Carbon Dioxide 26.7 29.9 Anion Gap 8.3 7.1 BUN 17 18 Creatinine 0.6 L 0.8 Est GFR (CKD-EPI 2020) 110.51 101.32 Glucose 113 H 99 Calcium 8.8 8.9 Phosphorus 2.8 2.7 Magnesium 1.9 1.8 Total Bilirubin 0.5 0.4 AST 22 26 ALT 29 29 Alkaline Phosphatase 127 H 128 H Total Protein 6.3 L 6.0 L Albumin 2.5 L 2.3 L PFSH All Active Problems (Updated 11/13/23 @ 17:23 by López Rogers MD) Refeeding syndrome (Acute) G tube feedings (Acute) Aspiration pneumonia (Acute) DNR (do not resuscitate) (Acute) Palliative care patient (Acute) ACP (advance care planning) (Acute) Malnutrition (Acute) Failure to thrive in adult (Acute) Discharge planning issues (Acute) DVT prophylaxis (Acute) Dysphagia (Acute) Acute bronchitis (Acute) Right rotator cuff tear (Acute) Tongue lesion (Acute) Infection of skin and subcutaneous tissue (Acute) Oral candidiasis (Acute) Anemia associated with acute blood loss (Acute) Upper GI bleeding (Acute) PUD (peptic ulcer disease) (Acute) Tobacco dependence (Acute) Sebaceous cyst (Acute) Sutures removed without difficulty Medical History Oral cancer Alcoholic cirrhosis Head and neck cancer Chronic hepatitis Alcohol abuse Tobacco dependency Lipoma of back Surgical History Gastroscopy (04/22/15) Social History Smoking/Tobacco Use Status: Current every day Tobacco Type: cigarettes Smoking packs per day: 1 Smoking cigarettes per day: 20.0 Years smoked: 40 Smoking pack- years: 40.00 Tobacco: How many years used: 40 Smoking risk assessment performed?: Yes Alcohol Intake: never Drug use: Never Housing: house Do you feel safe at home: Yes Do you feel safe in your relationship?: Yes Additional Social history: lives with sister Time Spent with Patient Time Spent with Patient: <45 minutes Time was spent: preparing to see the patient(eg.review tests), obtaining and/or reviewing separately otained hiistory, ordering medications,tests, procedures, referring, communicating with other health lpn care manager, indepentently interpreting results, counseling the patient and care coordination
[2023-11-18 07:39] VITALS: BP 129/73; PULSE 59; RESP 18; TEMP 36.4; O2SAT 97
[2023-11-18] MEDS: Sucralfate 1 GM TAB NG (08:09)
[2023-11-18] MEDS: Thiamine 100 MG TAB PO (09:18)
[2023-11-18] MEDS: Cyanocobalamin 500 MCG TAB 1000 MCG NG (09:18)
[2023-11-18] MEDS: methylPREDNISolone SUCC 40 MG VIAL IVP (09:19)
[2023-11-18] MEDS: Magnesium Oxide 400 MG TAB NG (09:19)
[2023-11-18] MEDS: Normal Saline Flush 10 ML SYR IVP (09:20)
--- NOTE | 2023-11-18 10:16 | PDOC.HHF2F ---
Home Health Referral Home Health Orders Clinical synopsis of why skilled professionals are needed: G-tube dependent due to eosophageal dysfunction s/p chemo and radiation Registered Nurse: Check all that apply Instruct on new or changed medication(s)/assess compliance: Ordered Instruct on ostomy care: Ordered Other: G-tube management Physical Therapist: Check all that apply Increase strength & endurance for safe mobility at home: Ordered To design/establish home maintenance program: Ordered Fall reduction therapy program for patient with history of frequent falls: Ordered Home safety evaluation and teaching/gait training including stair management (if applicable): Ordered Speech Therapist: Check all that apply For swallow evaluation/therapy due to dysphagia: Ordered Speech/communication disorders: Ordered Encounter Date and Reason: I certify that a FTF encounter for this patient was performed on November 18, 2023 and that such encounter was related to the primary reason the patient requires home health services. The encounter was conducted in the following manner: By me as the certifying physician, FOUNDRY LABORER COREROOM, PA or By an inpatient physician, FOUNDRY LABORER COREROOM or PA during an inpatient stay who communicated findings to me, Certification And Authentication I certify that I composed the above information based on my clinical judgment relating to this patient's medical condition and, if applicable, clinical findings communicated to me by the NPP or inpatient physician who performed the FTF encounter. Name of Provider that will be monitoring home health services: Monserrat Parker
--- NOTE | 2023-11-18 18:08 | PDOC.CMDIS ---
Date of service: 11/18/23 Time of Service: 18:08 LACE Index Scoring Tool Questions: Length of Stay (in days): 7 - 13 Was the patient admitted via the E.D.?: Yes Comorbidities: Any Tumor Care Management Discharge Plan Reason for Hospitalization: Acute bronchitis, dysphagia, FTT Discharge Plan: Vin will return home with his sister once medically cleared, he will follow up with his PCP, outpatient manufacturing operations manager at [facility] and Oncology, as well. CM coordinated orders through [facility] for enteral nutrition and [facility] RN/ST/PT for discharge. He will continue to be followed by Palliative Care: Val Anna as well. Patient/Family Education Needs: Review discharge instructions, community based supports, employee benefits, discuss self care needs upon discharge. Services Needed at Discharge: DME Agency and Home Health Care Services SDOH Health Related Social Needs: Health related social needs risk of homeless, personal safety Health related social needs: housing instability, housed, with risk of homelessness(Z59.811) and problem related to primary support group(Z63.9) Referrals and interventions: VNA, Palliative, DME [facility]
== END 2023-11-18 10:20 | disposition home health service (06) | DRG 177 ==
LOC: ER 15:35 → MS 15:48
PROVIDERS: Family Medicine; Internal Medicine; Student in an Organized Health Care Education/Training Program; Surgery; Admitting Provider Internal Medicine; Emergency Provider Emergency Medicine; PCP Nurse Practitioner Family; Visit Provider Internal Medicine
PROC: 0DJ68ZZ Inspection of Stomach, Via Natural or Artificial Opening Endoscopic (ICD-10-PCS; CPT 43235; principal; 2023-11-09 13:30)
PROC: 0DH64UZ Insertion of Feeding Device into Stomach, Percutaneous Endoscopic Approach (ICD-10-PCS; CPT 49320; principal; 2023-11-11 13:15)
DX: J69.0 Pneumonitis due to inhalation of food and vomit (principal); E43 Unspecified severe protein-calorie malnutrition; Z68.1 Body mass index [BMI] 19.9 or less, adult; B37.0 Candidal stomatitis; R62.7 Adult failure to thrive; F10.21 Alcohol dependence, in remission; K70.30 Alcoholic cirrhosis of liver without ascites; Z66 Do not resuscitate; Z85.810 Personal history of malignant neoplasm of tongue; Z85.21 Personal history of malignant neoplasm of larynx; F17.210 Nicotine dependence, cigarettes, uncomplicated; K27.9 Peptic ulcer, site unspecified, unspecified as acute or chronic, without hemorrhage or perforation; R13.12 Dysphagia, oropharyngeal phase; K22.2 Esophageal obstruction; Y84.2 Radiological procedure and radiotherapy as the cause of abnormal reaction of the patient, or of later complication, without mention of misadventure at the time of the procedure; E83.39 Other disorders of phosphorus metabolism; Z53.09 Procedure and treatment not carried out because of other contraindication
CPT/HCPCS: 43235; 43653; 00123; 36410; 36415; 80048; 80053; 80061; 84145; 85027; 87040; 87449; 87637; 92526; 92610; 93005; 96365; 96366; 96367; 96375; 99285; J1650; 71045; 71260; 74019; 74221; 83735; 84100; 84443; 85025; 87070; 87205; 87581; 87899; 93010; 94640; 94667; 94668; 94760; 99223; 99232; 99233; 99238; G0378; J0131; J0295; J0665; J0690; J0692; J1100; J1170; J1450; J1885; J1956; J2001; J2371; J2405; J2704; J2919; J2930; J3010; J3411; J3475; J3490; J7620

== ENCOUNTER 2023-11-20 13:53 | Emergency (ER) | payer MEDICAID, SELFPAY ==
[2023-11-20 14:11] VITALS: BP 169/90; PULSE 65; RESP 16; TEMP 36.7; O2SAT 99
--- NOTE | 2023-11-20 14:40 | W.ED.GENAD ---
Discharge Plan Disposition Patient Disposition: Home Discharge Details Clinical Impression: Clogged feeding tube Primary Care Provider: Ankur Jimenez ED Provider: Landry Eagle Home Meds and New Rx's Prescriptions: No Action acetaminophen [Mapap Extra Strength] 500 MG tablet 1,000 mg PO Q8H PRN0RF pantoprazole 40 MG tablet,delayed release (DR/EC) 40 mg PO BID@ Qty: 60 0RF Patient Comments: 03/03/16 Pt states he only takes in am. PG chlorhexidine gluconate 0.12 % mouthwash 15 ml PO .COMPLEX Patient Comments: RINSE WITH 15ML BY MOUTH 5 TIMES A DAY Rx Instructions: 15 mL orally fivr times a day; mirtazapine 15 mg tablet,disintegrating 15 mg translingual HS Patient Comments: DISSOLVE ONE TABLET BY MOUTH AT BEDTIME sucralfate 1 gram Tablet 1 g NG AC & HS Qty: 90 0RF levothyroxine 100 mcg Tablet 100 mcg NG DAILY@0600 Qty: 90 0RF magnesium oxide 400 mg (241.3 mg magnesium) Tablet 400 mg NG BID Qty: 90 0RF Phospha 250 Neutral 250 mg Tablet 1 tab J-tube QID Qty: 120 0RF Discharge Instructions Additional Instructions: Continue to thoroughly irrigate feeding tube after all medications and feedings. Feel free to return the emergency department for any new or significant worsening of symptoms Otherwise follow-up with primary care provider as needed Referrals: Ankur Jimenez [Primary Care Provider] - (As needed for reassessment) Discharge Data Discharge Date/Time-TO BE ENTERED AT DEPARTURE: 11/20/23 15:11 HPI General Mode of arrival: ambulatory. Date/Time Provider Initiated Documentation: 11/20/23 14:00. Limitations to Documentation: no limitations. Information obtained by: patient and RN notes reviewed. History of Present Illness 58 year old M presents to the emergency department with the chief complaint of peg tube issue, Patient started experiencing this hour(s) (12) Patient notes no other symptoms.. Patient did receive the following treatments prior to arrival, none Related Data Home Medications Medication Instructions Recorded Confirmed acetaminophen 500 mg tablet (Mapap 1,000 mg (2 x 500 mg) PO Q8H PRN 09/17/15 11/07/23 Extra Strength) pantoprazole 40 mg tablet,delayed 40 mg PO BID@0730,2000 ##60 09/17/15 11/07/23 release chlorhexidine gluconate 0.12 % 15 ml PO .COMPLEX 11/07/23 11/07/23 mouthwash mirtazapine 15 mg disintegrating 15 mg translingual HS 11/10/23 11/10/23 tablet levothyroxine 100 mcg tablet 100 mcg NG DAILY@0600 #90 tabs 11/18/23 magnesium oxide 400 mg (241.3 mg 400 mg NG BID #90 tabs 11/18/23 magnesium) tablet sodium di- and 1 tab J-tube QID #120 tabs 11/18/23 monophosphate-potassium phos monobasic 250 mg tablet (Phospha Neutral) sucralfate 1 gram tablet 1 g NG AC & HS #90 tabs 11/18/23 Previous Rx's Medication Instructions Recorded acetaminophen 500 mg tablet (Mapap 1,000 mg (2 x 500 mg) PO Q8H PRN 09/17/15 Extra Strength) pantoprazole 40 mg tablet,delayed 40 mg PO BID@0730,1999 ##60 09/17/15 release levothyroxine 100 mcg tablet 100 mcg NG DAILY@0600 #90 tabs 11/18/23 magnesium oxide 400 mg (241.3 mg 400 mg NG BID #90 tabs 11/18/23 magnesium) tablet sodium di- and 1 tab J-tube QID #120 tabs 11/18/23 monophosphate-potassium phos monobasic 250 mg tablet (Phospha Neutral) sucralfate 1 gram tablet 1 g NG AC & HS #90 tabs 11/18/23 Allergies Allergy/AdvReac Type Severity Reaction Status Date / Time No Known Allergies Allergy Verified 11/07/23 11:52 General Stated Complaint: GenMedical RAE: 4 Review of Systems Gastrointestinal Gastrointestinal: Reports as per HPI, Denies abdominal pain and Denies vomiting Exam Const General: cooperative, no acute distress, frail appearing and not ill appearing Nutritional Appearance: malnourished Orientation: alert and awake HENMT Mouth: moist mucous membranes Resp Effort & Inspection: normal respiratory effort, able to speak in complete sentences and no respiratory distress GI Inspection: normal to inspection and other (RUDI tube insertion site appears normal) Palpation: soft and nontender Skin General skin exam: no rashes or lesions noted Neuro General: patient alert, patient awake, moves all extremities and no focal motor deficits Sensory Exam: no sensory deficits noted Course Vital Signs Vital signs: Vital Signs Temperature 36.7 C 11/20/23 14:11 Pulse 65 11/20/23 14:11 Respiratory Rate 16 11/20/23 14:11 Blood Pressure 169/90 H 11/20/23 14:11 Pulse Oximetry 99 11/20/23 14:11 Temperature 36.7 C 11/20/23 14:11 Temperature Source Tympanic 11/20/23 14:11 Pulse 65 11/20/23 14:11 Respiratory Rate 16 11/20/23 14:11 Blood Pressure 169/90 H 11/20/23 14:11 Blood Pressure Position Sitting 11/20/23 14:11 Pulse Oximetry 99 11/20/23 14:11 Oxygen Delivery Method Room Air 11/20/23 14:11 Oxygen Flow Rate 0 11/20/23 14:11 Medical Decision Making Patient presenting to the emergency department for chief complaint of feeding tube complication. Patient and family state that the tube attachment has been clogged for the past 12 hours. Home health was at the house and attempted to unclog it but unfortunately were unable to successfully get it working again. Patient denies all other symptoms, states the tube insertion site is normal just the attachment to. Physical exam is noncontributory. Was able to irrigate the tube clean and free and verified that it was working. Reinforced with patient and family of thorough irrigation after all tube feeds along with medication otherwise I feel he can follow-up with primary care as needed. After discussion of diagnosis and plan of care patient and family has no further needs, questions, or concerns and states clear understanding to return to the emergency department for any worsening symptoms. This documentation was generated using [employer] dictation system, please disregard any oddities of phrase or misspellings. Quality:SDOH Health Related Social Needs: Health related social needs risk of homeless, personal safety PFSH All Active Problems Clogged feeding tube (Acute) G tube feedings (Acute) DNR (do not resuscitate) (Acute) Palliative care patient (Acute) ACP (advance care planning) (Acute) Malnutrition (Acute) Failure to thrive in adult (Acute) Dysphagia (Acute) Right rotator cuff tear (Acute) Tongue lesion (Acute) Infection of skin and subcutaneous tissue (Acute) Anemia associated with acute blood loss (Acute) Upper GI bleeding (Acute) PUD (peptic ulcer disease) (Acute) Tobacco dependence (Acute) Sebaceous cyst (Acute) Sutures removed without difficulty Medical History Oral cancer Alcoholic cirrhosis Head and neck cancer Chronic hepatitis Alcohol abuse Tobacco dependency Lipoma of back Surgical History Gastroscopy (04/22/15) Social History Smoking/Tobacco Use Status: Current every day Tobacco Type: cigarettes Smoking packs per day: 1 Smoking cigarettes per day: 20.0 Years smoked: 40 Smoking pack-years: 40.00 Tobacco: How many years used: 40 Smoking risk assessment performed?: Yes Alcohol Intake: never Drug use: Never Housing: house Do you feel safe at home: Yes Do you feel safe in your relationship?: Yes Additional Social history: lives with sister
== END 2023-11-20 15:11 | disposition home or self-care (01) ==
PROVIDERS: Emergency Provider Nurse Practitioner Family; PCP Physician Assistant
DX: T85.598A Other mechanical complication of other gastrointestinal prosthetic devices, implants and grafts, initial encounter (principal); Z93.1 Gastrostomy status; Z85.21 Personal history of malignant neoplasm of larynx; F17.200 Nicotine dependence, unspecified, uncomplicated
CPT/HCPCS: 99281; 99283

== ENCOUNTER 2024-01-11 16:09 | Outpatient (REF) | payer MEDICAID, SELFPAY ==
[2024-01-11 19:01] LABS: ALT 30 U/L (16-63); AST 28 U/L (15-37); Albumin 3.3 g/dL (3.4-5.0); Alkaline Phosphatase 194 U/L (46-116); Anion Gap 9.1 mmol/L (3-11); BUN 21 mg/dL (7-18); Bilirubin, Total 0.2 mg/dL (0.2-1.0); CO2 27.9 mmol/L (21.0-32.0); CREATININE 0.6 mg/dL (0.70-1.30); Calcium 8.9 mg/dL (8.5-10.1); Chloride 102 mmol/L (98-107); Estimated GFR 110.51 (mL/min/1.73m2); Glucose 90 mg/dL (74-106); Magnesium 1.8 mg/dL (1.8-2.4); PHOSPHORUS 3.7 mg/dL (2.6-4.7); Sodium 139 mmol/L (136-145); TSH 1.22 uIU/Ml (0.36-3.74); Total Protein 7.7 g/dL (6.4-8.2)
== END 2024-01-11 16:10 | disposition home or self-care (01) ==
LOC: NCHCN 16:09
PROVIDERS: PCP Physician Assistant; Visit Provider Physician Assistant
DX: E03.9 Hypothyroidism, unspecified (principal); R62.51 Failure to thrive (child)
CPT/HCPCS: 80053; 82306; 83735; 84100; 84443

== ENCOUNTER 2024-08-28 11:47 | Outpatient (REF) | payer MEDICAID, SELFPAY ==
[2024-08-28 15:48] LABS: ALT 13 U/L (16-63); AST 15 U/L (15-37); Albumin 3.6 g/dL (3.4-5.0); Alkaline Phosphatase 144 U/L (46-116); Anion Gap 11.6 mmol/L (3-11); BUN 22 mg/dL (7-18); Bilirubin, Total 0.59 mg/dL (0.2-1.0); CO2 27.4 mmol/L (21.0-32.0); Calcium 9.3 mg/dL (8.5-10.1); Calculated LDL 106 mg/dL (<100); Chloride 104 mmol/L (98-107); Cholesterol 190 mg/dL (<200); Estimated GFR 85.63 (mL/min/1.73m2); Glucose 96 mg/dL (74-106); HDL Cholesterol 70 mg/dL (40-60); Magnesium 1.9 mg/dL (1.8-2.4); Potassium 3.6 mmol/L (3.5-5.1); Sodium 143 mmol/L (136-145); TSH 3.55 uIU/mL (0.36-3.74); Total Protein 7.8 g/dL (6.4-8.2); Triglyceride 70 mg/dL (<150)
[2024-08-28 16:14] LABS: Hemoglobin A1C 5.8 % (<5.7)
== END 2024-08-28 11:48 | disposition home or self-care (01) ==
LOC: NCHCN 11:47
PROVIDERS: PCP Physician Assistant; Visit Provider Physician Assistant
DX: R73.03 Prediabetes (principal); E03.9 Hypothyroidism, unspecified; E83.42 Hypomagnesemia
CPT/HCPCS: 80053; 80061; 83036; 83735; 84443

== ENCOUNTER 2024-11-09 01:59 | Outpatient (CLI) | payer MEDICAID, SELFPAY ==
--- NOTE | 2024-11-09 | DI.CTLCSR_ITS ---
Exam(s) CT CHEST LUNG CANCER SCREEN EXAM: CT CHEST LUNG CANCER SCREEN CLINICAL HISTORY: Nicotine dependence, F17.210; smoker; screening TECHNIQUE: Imaging Protocol: Axial computed tomography images with coronal and sagittal reformatted images were created and reviewed. Low dose screening protocol. COMPARISON: CT CT CHEST WO from 01/16/[address] CHEST W from 11/08/2023 FINDINGS: Tracheobronchial tree: Bronchiectasis again noted greater at the right middle and lower lobe. Mediastinum and Valerie: No dominant adenopathy or fluid collection. Pulmonary parenchyma: No dominant measurable mass. Mild emphysematous changes. . stable area of con solidation in the right middle lobe. some improvement in right lower lobe infiltrate. Improvement in left lower lobe infiltrate. Interstitial changes noted in both lower lobes. Stable area of scarr ing and pleural thickening at the right lung apex. Lung Nodules: Calcified granuloma posterior left lower lobe. Pleura: No effusion. No pneumothorax. Heart: The heart is not dilated. Mild coronary artery calcifications are seen. No pericardial effusio n. Aorta: Thoracic aorta non-dilated. Atherosclerotic calcifications. Upper abdomen: Cholelithiasis. Gastrostomy tube. Bones: Unremarkable for age. Soft Tissues: Gynecomastia. IMPRESSION: No suspicious pulmonary nodules although nodules could be obscured by bilateral infiltrates.. Lung RADS Cat 2 - Benign Appearance / Behavior: Nodules with a very low likelihood of becoming a clin ically active cancer due to size or lack of growth Lung-RADS 1.0 CATEGORIES: Category 0 - Prior chest CT exam(s) being located for comparison. Category 1 - Annual screening in 12 months. No nodules or definitely benign nodules. Category 2 - Annual screening in 12 months. Benign appearance. Nodules with low likelihood of becomin g active cancer. Category 3 - 6-month follow-up. Probably benign. Short-term follow-up suggested. Nodules with low lik elihood of becoming active cancer. Category 4A - 3-month follow-up and CT/PET if >8 mm in size. Suspicious finding. Findings which requi re additional testing. Category 4B - Findings which require additional testing and tissue sampling. Category 4X - Category 3 or 4 nodules with additional features or imaging findings that increases the suspicion of malignancy. Modifier S- Potentially clinically significant findings (non lung cancer) RADIATION DOSE DELIVERED: !Error Total DLP DATA REPOSITORY: All CT scans at this facility are submitted to the National Radiology Data Registry (NRDR) Dose Index Registry (DIR) with the [employer] (ACR). RADIATION OPTIMIZATION: All CT scans at this facility use at least one of these dose optimization te chniques: automated exposure control; mA and/or kV adjustment per patient size (includes targeted exa ms where dose is matched to clinical indication); or iterative reconstruction.
== END 2024-11-09 02:19 ==
LOC: DI 01:59
PROVIDERS: PCP Physician Assistant; Visit Provider Physician Assistant
DX: Z12.2 Encounter for screening for malignant neoplasm of respiratory organs (principal); F17.210 Nicotine dependence, cigarettes, uncomplicated; R91.8 Other nonspecific abnormal finding of lung field
CPT/HCPCS: 71271

== ENCOUNTER 2024-12-13 11:12 | Emergency (ER) | payer MEDICAID, SELFPAY ==
[2024-12-13 11:15] VITALS: BP 146/84; PULSE 90; RESP 16; TEMP 37.2; O2SAT 98
[2024-12-13 11:17] VITALS: BP 146/84; PULSE 90; RESP 16; TEMP 37.2; O2SAT 98
--- NOTE | 2024-12-13 12:45 | W.ED.GENAD ---
Discharge Plan Disposition Patient Disposition: Home Condition: Good Discharge Details Clinical Impression: Gastrojejunostomy tube dislodgement Primary Care Provider: Ankur Jimenez ED Provider: Alexandra Magaña Home Meds and New Rx's Prescriptions: Continued acetaminophen [Mapap Extra Strength] 500 MG tablet 1,000 mg PO Q8H PRN0RF pantoprazole 40 MG tablet,delayed release (DR/EC) 40 mg PO BID@0730,2000 Qty: 60 0RF Patient Comments: 03/03/16 Pt states he only takes in am. PG chlorhexidine gluconate 0.12 % mouthwash 15 ml PO .COMPLEX Patient Comments: RINSE WITH 15ML BY MOUTH 5 TIMES A DAY Rx Instructions: 15 mL orally fivr times a day; mirtazapine 15 mg tablet,disintegrating 15 mg translingual HS Patient Comments: DISSOLVE ONE TABLET BY MOUTH AT BEDTIME sucralfate 1 gram Tablet 1 g NG AC & HS Qty: 90 0RF levothyroxine 100 mcg Tablet 100 mcg NG DAILY@0600 Qty: 90 0RF magnesium oxide 400 mg (241.3 mg magnesium) Tablet 400 mg NG BID Qty: 90 0RF Discharge Instructions Additional Instructions: G-tube was replaced here. This is a Guadarrama catheter in place that is different than what you are used to. It is an 18 Sammarinese catheter. Please keep this in place until you reevaluate general surgery tomorrow. You have an appointment with Dr. Goodrich at 10 AM at which time it is expected that he will replace with your typical tube. Please try to keep this in place, it is significantly longer than you are used to to take care not to catch this on anything. Please keep the tape in place, a tight shirt may also help to prevent this from pulling at night. If you develop any new or worsening symptoms please seek care urgently once again. Referrals: Shmuel Goodrich MD [ [facility] STAFF PHYSICIAN] - 12/14/24 10:00 am [facility] General Date/Time Provider Initiated Documentation: 12/13/24 11:17. Limitations to Documentation: no limitations. Information obtained by: patient, family and RN notes reviewed. History of Present Illness 59 year old M presents to the emergency department with the chief complaint of G-tube displacement, and is localized to the abdomen. Patient started experiencing this hour(s) (1) and it has been constant. Other factors that worsen symptoms (denies catching it or any trauma, states it just fell out) . Patient did receive the following treatments prior to arrival, none Related Data Home Medications ?Medication ?Instructions ?Recorded ?Confirmed acetaminophen 500 mg tablet (Mapap 1,000 mg (2 x 500 mg) PO Q8H PRN 09/17/15 12/13/24 Extra Strength) pantoprazole 40 mg tablet,delayed 40 mg PO BID@729,1999 ##60 09/17/15 12/13/24 release chlorhexidine gluconate 0.12 % 15 ml PO .COMPLEX 11/07/23 12/13/24 mouthwash mirtazapine 15 mg disintegrating 15 mg translingual HS 11/10/23 12/13/24 tablet levothyroxine 100 mcg tablet 100 mcg NG DAILY@0600 #90 tabs 11/18/23 12/13/24 magnesium oxide 400 mg (241.3 mg 400 mg NG BID #90 tabs 11/18/23 12/13/24 magnesium) tablet sucralfate 1 gram tablet 1 g NG AC & HS #90 tabs 11/18/23 12/13/24 Previous Rx's ?Medication ?Instructions ?Recorded acetaminophen 500 mg tablet (Mapap 1,000 mg (2 x 500 mg) PO Q8H PRN 09/17/15 Extra Strength) pantoprazole 40 mg tablet,delayed 40 mg PO BID@0730,1999 ##60 09/17/15 release levothyroxine 100 mcg tablet 100 mcg NG DAILY@0600 #90 tabs 11/18/23 magnesium oxide 400 mg (241.3 mg 400 mg NG BID #90 tabs 11/18/23 magnesium) tablet sucralfate 1 gram tablet 1 g NG AC & HS #90 tabs 11/18/23 Allergies Allergy/AdvReac Type Severity Reaction Status Date / Time No Known Allergies Allergy Verified 12/13/24 11:18 General Stated Complaint: GenMedical RAE: 4 Review of Systems Constitutional Constitutional: Reports as per HPI and Denies fever(s) Cardiovascular Cardiovascular: Reports as per HPI, Denies chest pain and Denies dyspnea Respiratory Respiratory: Reports as per HPI, Denies cough and Denies dyspnea Gastrointestinal Gastrointestinal: Reports as per HPI Integumentary/Breasts Skin/Breast: Reports as per HPI Exam Const General: cooperative, comfortable, no acute distress, well developed and ill appearing chronically Nutritional Appearance: thin Orientation: alert and awake Resp Effort & Inspection: normal respiratory effort, able to speak in complete sentences and no respiratory distress Auscultation: clear to auscultation bilaterally, no rales, no rhonchi and no wheezes Cardio Rate: regular rate Rhythm: regular rhythm Heart Sounds: S1 normal and S2 normal GI Inspection: other (small stoma site LUQ, surrounding erythema, non-tender, small break in skin) Palpation: soft, no guarding, nontender and No ascites Auscultation: normal bowel sounds Skin General skin exam: erythema (around stoma) Course Vital Signs Vital signs: Vital Signs Temperature 37.2 C 12/13/24 11:15 Pulse 90 12/13/24 11:15 Respiratory Rate 16 12/13/24 11:15 Blood Pressure 146/84 H 12/13/24 11:15 Pulse Oximetry 98 12/13/24 11:15 Temperature 37.2 C 12/13/24 11:17 Temperature Source Oral 12/13/24 11:17 Pulse 90 12/13/24 11:17 Respiratory Rate 16 12/13/24 11:17 Respiratory Effort Normal 12/13/24 11:25 Blood Pressure 146/84 H 12/13/24 11:17 Pulse Oximetry 98 12/13/24 11:17 Oxygen Delivery Method Room Air 12/13/24 11:17 Oxygen Flow Rate 0 12/13/24 11:17 Pain Level 0 12/13/24 11:17 Procedure Feeding Tube Replacement Date of Procedure: 12/13/24 Time of Procedure: 12:45 Provider that performed the procedure: Alexandra Magaña Type of Tube: G-J Tube Insertion Site Prior to Procedure: erythematous Tube Used for Reinsertion: Guadarrama Sammarinese Tube Size: 18 Balloon Size (mls): 5 Verification of Placement: gastrograffin injection Tube Secured by: tape/dressing Patient Tolerated Procedure: well and no complications Medical Decision Making Patient is a plesant 59 year old male, accompanied by his , with PMH of cancer, presenting with c/c of g-tube displacement. He has brought the tube with him, appears to have had balloon failure- he denies pulling on this. He states this happened about one hour prior to arrival. G-tube ahs been in place for over a year. Managed by general surgery, he has appointment for g-tube replacement in January. Has had some skin irritation around the site for which he has been applying barrier cream for past few months. On exam, patient does appear chronically ill but not acutely toxic. Does have some irritation around the stoma from his G-tube in small area of skin breakdown does not appear to be consistent with cellulitis. Is nontender to palpation. He does not have any significant drainage. Abdomen itself is nontender. Patient, his and I discussed replacement. We were able to get a 20 Sammarinese G-tube at sadly our G-tube is not the same as what the patient already had placed. The one that he had it was a much shorter G-tube with the flange distally. On review of this which she did bring in, it appears that the balloon tore. Instead, he was able to place a Guadarrama catheter. 18-Sammarinese was placed after cleansing the area and. Spoke with general surgery- he advised calling clinic to help arrange prompt f/u for new g-tube placement. Advised being send home with guadarrama in place is appropriate at this time. 10AM appointment tomorrow with Dr. Goodrich After placement of the Guadarrama catheter which patient tolerated well, verification of tube placement was obtained through radiography and contrast application. Catheter is in the distal stomach and does move into the duodenum. Patient does typically eat orally, is able to tolerate p.o. and does not require G-tube feedings so will not be putting any feedings in. We were able to initially get stomach contents through the tube. Plug in place, tape in place. Return precautions discussed. They are aware of appointment tomorrow with Dr. Goodrich. All oftheir questions and concerns were addrssed, they are in agreement iwth this plan. This documentation was generated using [employer] system, please disregard any oddities of phrase or misspellings. Quality:SDOH Health Related Social Needs: No Data to Display PFSH All Active Problems (Updated 12/13/24 @ 14:20 by CARMEL Blas) Gastrojejunostomy tube dislodgement (Acute) G tube feedings (Acute) DNR (do not resuscitate) (Acute) Palliative care patient (Acute) ACP (advance care planning) (Acute) Malnutrition (Acute) Failure to thrive in adult (Acute) Dysphagia (Acute) Right rotator cuff tear (Acute) Anemia associated with acute blood loss (Acute) PUD (peptic ulcer disease) (Acute) Tobacco dependence (Acute) Medical History Oral cancer Alcoholic cirrhosis Head and neck cancer history of Chronic hepatitis Alcohol abuse Tobacco dependency Lipoma of back Surgical History Gastroscopy (04/22/15) Social History Smoking/Tobacco Use Status: Current every day Tobacco Type: cigarettes Smoking packs per day: 1 Smoking cigarettes per day: 20.0 Years smoked: 40 Smoking pack-years: 40.00 Tobacco: How many years used: 40 Smoking risk assessment performed?: Yes Alcohol Intake: never Drug use: Never Housing: house Do you feel safe at home: Yes Do you feel safe in your relationship?: Yes Additional Social history: lives with sister
[2024-12-13 13:18] VITALS: BP 112/74; PULSE 68; RESP 16; O2SAT 98
--- NOTE | 2024-12-13 13:57 | DI.RAD_ITS ---
Exam(s) RF GI TUBE INJECTION EXAM: RF GI TUBE INJECTION CLINICAL HISTORY: g tube check. TECHNIQUE: 2D and realtime digital imaging was performed. CONTRAST MATERIAL: Oral barium Oral water soluble contrast was administered. COMPARISON: No exams were available for comparison FINDINGS: There is a gastrostomy tube in place. The tube enters the stomach in the left upper quadrant. The b alloon at the end of the catheter is seen on the noncontrast KUB to the right of the L3 vertebral bod y. Contrast was placed through the catheter and is seen in the distal stomach. With peristalsis, th e contrast moves through the stomach into the distal duodenum. No obstruction is seen. No contrast is seen in the peritoneal cavity. IMPRESSION: RADIATION DOSE DELIVERED: [place]=13.7mGy
[2024-12-13] MEDS: Omnipaque 350 MG/ML 50 ML BTL IJ (14:02)
[2024-12-13 14:32] VITALS: BP 115/74; PULSE 71; RESP 16; O2SAT 98
== END 2024-12-13 14:32 | disposition home or self-care (01) ==
LOC: ER 14:55
PROVIDERS: Emergency Provider Physician Assistant; PCP Physician Assistant
DX: K94.23 Gastrostomy malfunction (principal); C14.0 Malignant neoplasm of pharynx, unspecified; F17.210 Nicotine dependence, cigarettes, uncomplicated
CPT/HCPCS: 43762; 99283; 49465; Q9967

== ENCOUNTER 2025-06-07 17:44 | Outpatient (REF) | payer MEDICAID, SELFPAY ==
[2025-06-07 21:11] LABS: Hemoglobin A1C 5.7 % (<5.7)
[2025-06-07 21:14] LABS: TSH 2.29 uIU/mL (0.36-3.74)
== END 2025-06-07 17:45 | disposition home or self-care (01) ==
LOC: NCHCN 17:44
PROVIDERS: PCP Physician Assistant; Visit Provider Physician Assistant
DX: R73.03 Prediabetes (principal); E03.9 Hypothyroidism, unspecified
CPT/HCPCS: 83036; 84443

== ENCOUNTER 2025-07-23 03:23 | Outpatient (CLI) | payer MEDICAID, SELFPAY ==
[2025-07-23 10:10] LABS: TSH 3.98 uIU/mL (0.36-3.74)
== END 2025-07-23 03:24 | disposition home or self-care (01) ==
LOC: LBO 03:23
PROVIDERS: PCP Physician Assistant; Visit Provider Nurse Practitioner
DX: E03.9 Hypothyroidism, unspecified (principal); R73.03 Prediabetes
CPT/HCPCS: 36415; 84443